=== PATIENT | male | born 1940 | race Caucasian/White ===

== ENCOUNTER → 2019-01-19 | Outpatient (CLI) | payer MEDICARE, OTHER ==
--- NOTE | 2019-01-19 15:19 | US ---
EXAMINATION TYPE: US venous doppler duplex LE LT DATE OF EXAM: 01/19/2019 3:00 PM COMPARISON: NONE CLINICAL HISTORY: I80.9 Phlebitis and thrombophlebitis. left ankle swelling SIDE PERFORMED: Left TECHNIQUE: The lower extremity deep venous system is examined utilizing real time linear array sonog sydnie with graded compression, doppler sonography and color-flow sonography. VESSELS IMAGED: External Iliac Vein (EIV) Common Femoral Vein Deep Femoral Vein Greater Saphenous Vein * Femoral Vein Popliteal Vein Small Saphenous Vein * Proximal Calf Veins (* superficial vessels) Left Leg: Negative for DVT Grayscale, color doppler, spectral doppler imaging performed of the deep veins of the left lower extr emity. There is normal flow, compressibility, vascular waveforms. IMPRESSION: No ultrasound evidence for acute DVT in the left lower extremity.
== END ==
LOC: RADUSWWP 14:31
PROVIDERS: ATTEND Orthopaedic Surgery
DX: M79.662 Pain in left lower leg (principal)

== ENCOUNTER 2024-05-23 13:35 | Inpatient (IN) | payer MEDICARE, OTHER ==
[2024-05-23 16:45] LABS: Glucose,Whole Blood 138 mg/dL (70-110)
[2024-05-23] MEDS ORDERED: ONDANSETRON 4 MG/2 ML VIAL IVP PRN (18:38)
[2024-05-23] MEDS ORDERED: NALOXONE 0.4 MG/ML 1 ML VIAL IV PRN (18:38)
[2024-05-23] MEDS ORDERED: ACETAMINOPHEN TAB 325 MG TAB PO PRN (18:38)
[2024-05-23] MEDS ORDERED: DEXTROSE 50% SYRINGE 50 ML IVP PRN ×2 (18:44)
[2024-05-23 20:36] LABS: Glucose,Whole Blood 160 mg/dL (70-110)
[2024-05-23] MEDS: PANTOPRAZOLE 40 MG/10 ML VIAL IVP SCH (20:40)
[2024-05-23] MEDS: hydrALAZINE HCL 50 MG TAB PO SCH (20:40)
[2024-05-23] MEDS: FUROSEMIDE 10 MG/ML 4 ML VIAL IV SCH (20:40)
[2024-05-23] MEDS: INSULIN ASPART (NovoLOG) 100 UNIT/ML VIAL SQ SCH (20:41)
[2024-05-24 06:03] LABS: Glucose,Whole Blood 101 mg/dL (70-110)
--- NOTE | 2024-05-24 09:30 | P.GSCN ---
History of Present Illness Consult date: 05/24/24 Reason for Consult: Chronic kidney disease History of present illness: 84-year-old gentleman with history of chronic kidney disease presented to [facility] secondary to anemia after getting transfused he was found to have worsening kidney function which he states he has been dealing with for several months and was instructed that he would need hemodialysis access prior to discharge. The vascular surgeon at the other hospital was unable to take the patient and therefore he was transferred to [facility]. He states he is doing well today and is complaining of fatigue which she states is normal. He denies any significant pain in his legs with ambulation or at rest. He does get pain in his lower back which is chronic. He denies any fevers, chills, chest pain or shortness of breath. Review of Systems All systems: negative (What is mentioned in HPI or past medical history of) Past Medical History Past Medical History: Coronary Artery Disease (CAD), Diabetes Mellitus, Hyperlipidemia, Hypertension, Osteoarthritis (OA), Renal Disease History of Any Multi-Drug Resistant Organisms: None Reported Past Surgical History: No Surgical Hx Reported Past Psychological History: No Psychological Hx Reported Smoking Status: Former smoker Past Alcohol Use History: None Reported Past Drug Use History: None Reported Medications and Allergies Allergies Allergy/AdvReac Type Severity Reaction Status Date / Time No Known Allergies Allergy Verified 05/23/24 19:20 Surgical - Exam Vital Signs Temp Pulse Resp BP Pulse Ox 97.2 F L 66 18 143/58 93 L 05/23/24 15:29 05/23/24 15:29 05/23/24 15:29 05/23/24 15:29 05/23/24 15:29 Patient Seen Date: 05/24/24 Patient Seen Time: 09:00 Slightly diminished DP and PT pulse. - General well developed, well nourished, no distress - Eyes PERRL, normal ocular movement - ENT normal pinna - Neck no masses, no bruits - Respiratory normal expansion, normal respiratory effort - Cardiovascular Rhythm: regular - Abdomen Abdomen: soft, non tender - Integumentary no rash, no growths - Neurologic normal coordination, normal sensation - Psychiatric oriented to time, oriented to person, oriented to place, speech is normal Results - Labs Abnormal Lab Results - Last 24 Hours (Table) 05/23/24 05/23/24 Range/Units 16:44 20:34 POC Glucose (mg/dL) 138 H 160 H (70-110) mg/dL Assessment and Plan Assessment: Chronic kidney disease Chronic anemia Coronary artery disease history of CABG Diabetes Plan: Awaiting labs from this morning. Reviewed labs from [facility] and potassium was 5.1 so unlikely need for emergent dialysis. Discussed with nephrology and will schedule tunneled hemodialysis catheter tomorrow unless labs have drastically changed and he requires emergent dialysis Thank you for the consultation
[2024-05-24 09:43] LABS: Basophils # (A) 0 X 10*3/uL (0.00-0.10); Basophils % (A) 0 %; Eosinophils # (A) 0.05 X 10*3/uL (0.04-0.35); Eosinophils % (A) 0.9 %; HCT 23.5 % (39.6-50.0); HGB 7.4 g/dL (13.0-17.0); Lymphocytes # (A) 0.44 X 10*3/uL (0.90-5.00); Lymphocytes % (A) 7.9 %; MCH 28.5 pg (27.0-32.0); MCHC 31.5 g/dL (32.0-37.0); MCV 90.4 FL (80.0-97.0); Mean Platelet Volume 9.8 FL (9.5-12.2); Monocytes # (A) 0.28 X 10*3/uL (0.20-1.00); NRBC Per 100 WBC 0 X 10*3/uL (0.00-0.01); Neutrophils # (A) 4.77 X 10*3/uL (1.80-7.70); Neutrophils % (A) 85.7 %; Platelet Count 247 X 10*3/uL (140-440); RDW 14.2 % (11.5-14.5); WBC 5.57 X 10*3/uL (4.50-10.00)
[2024-05-24 09:48] LABS: ALT 23 U/L (10-49); AST 33 U/L (14-35); Albumin/Globulin Ratio 0.81 Ratio (1.60-3.17); Alkaline Phosphatase 116 U/L (41-126); BUN/Creat Ratio 17.85 Ratio (12.00-20.00); Blood Urea Nitrogen 94.6 mg/dL (9.0-27.0); Calcium 8.3 mg/dL (8.7-10.3); Chloride 103 mmol/L (96-109); Globulin 3.7 g/dL (1.6-3.3); Glucose 93 mg/dL (70-110); Magnesium 1.8 mg/dL (1.5-2.4); Potassium 4.6 mmol/L (3.5-5.5); Sodium 141 mmol/L (135-145); Total Bilirubin 0.6 mg/dL (0.3-1.2); Total Protein 6.7 g/dL (6.2-8.2)
[2024-05-24 10:00] LABS: INR 1.21 sec (0.93-1.11); Prothrombin Time 12.9 sec (9.9-11.9)
--- NOTE | 2024-05-24 10:57 | P.PN ---
Subjective Progress Note Date: 05/24/24 This is an 84-year-old male patient with past medical history of coronary artery disease, chronic back pain, gout, hyperlipidemia, hypertension, hypothyroidism, neuropathy, osteoarthritis, spinal stenosis, diabetes mellitus type 2. Patient initially presented to [facility] was transferred to [facility] due to acute kidney injury with chronic kidney disease. Patient was seen by nephrology and a dialysis catheter needed to be obtained which apparently could not be done at [facility] and thus patient was transferred to [facility]. Patient denies having any chest pain, shortness of breath. He does have lower extremity edema. He is making urine. Lab work obtained at the outside facility revealed creatinine 4.2 and BUN 81. CAT scan of the chest, abdomen, pelvis was negative. Patient is s/p 1 unit of packed RBCs. Patient has been started on IV Lasix 40 mg every 12 hours. Home cardiac medications: Aspirin 81 mg daily, atorvastatin 80 mg at bedtime, Jardiance 10 mg daily, metoprolol tartrate 50 mg twice daily, Aldactone 25 mg daily, patient is also on levothyroxine 50 mcg daily Physical examination: Gen: This is an 84-year-old male in no acute distress VS: reviewed HEENT: Head is atraumatic, normocephalic. Pupils equal, round. Sclerae is anicteric. NECK: Supple. No JVD. LUNGS: Clear to auscultation. No wheezes or rhonchi. No intercostal retractions. HEART: Regular rate and rhythm. No murmur. ABDOMEN: Soft No tenderness. EXTREMITIES: Bilateral pedal edema. No calf tenderness. NEUROLOGICAL: Patient is awake, alert and oriented x3. Assessment: Acute kidney injury requiring HD Chronic kidney disease Coronary artery disease Hypertension Hyperlipidemia Diabetes mellitus type 2 Anemia of chronic disease, status posttransfusion 1 unit packed RBCs Plan: Continue patient's home cardiac medications: Aspirin 81 mg daily, atorvastatin 80 mg at bedtime, metoprolol tartrate 50 mg twice daily Aldactone on hold Patient has been started on IV Lasix 40 mg every 12 hours Obtain 2-D echocardiogram and Doppler study to assess cardiac structure and function Further recommendations to follow based upon clinical course Thank you kindly for this consultation. Nurse practitioner note has been reviewed, I agree with documented findings and plan of care. Patient was seen and examined. Objective - Vital Signs Vital signs: Vital Signs Temp 98.1 F 05/24/24 07:24 Pulse 83 05/24/24 07:24 Resp 17 05/24/24 07:24 BP 130/67 05/24/24 07:24 Pulse Ox 96 05/24/24 07:24 FiO2 Intake & Output 05/23/24 05/24/24 05/24/24 18:59 06:59 18:59 Weight 75.86 kg Other: Voiding Method Toilet # Voids 2 3 # Bowel Movements 1 - Labs CBC & Chem 7: 05/24/24 03:23 05/24/24 03:23 Labs: Abnormal Lab Results - Last 24 Hours (Table) 05/23/24 05/23/24 05/24/24 Range/Units 16:44 20:34 03:23 RBC 2.60 L (4.40-5.60) X 10*6/uL Hgb 7.4 L (13.0-17.0) g/dL Hct 23.5 L (39.6-50.0) % MCHC 31.5 L (32.0-37.0) g/dL Lymphocytes # 0.44 L (0.90-5.00) X 10*3/uL PT (9.9-11.9) sec INR (0.93-1.11) sec Anion Gap (4.00-12.00) mmol/L BUN (9.0-27.0) mg/dL Creatinine (0.6-1.5) mg/dL Est GFR (CKD-EPI) (>=60) POC Glucose (mg/dL) 138 H 160 H (70-110) mg/dL Calcium (8.7-10.3) mg/dL Albumin (3.8-4.9) g/dL Globulin (1.6-3.3) g/dL Albumin/Globulin Ratio (1.60-3.17) Ratio 05/24/24 05/24/24 Range/Units 03:23 03:23 RBC (4.40-5.60) X 10*6/uL Hgb (13.0-17.0) g/dL Hct (39.6-50.0) % MCHC (32.0-37.0) g/dL Lymphocytes # (0.90-5.00) X 10*3/uL PT 12.9 H (9.9-11.9) sec INR 1.21 H (0.93-1.11) sec Anion Gap 14.00 H (4.00-12.00) mmol/L BUN 94.6 H (9.0-27.0) mg/dL Creatinine 5.3 H (0.6-1.5) mg/dL Est GFR (CKD-EPI) 10 L (>=60) POC Glucose (mg/dL) (70-110) mg/dL Calcium 8.3 L (8.7-10.3) mg/dL Albumin 3.0 L (3.8-4.9) g/dL Globulin 3.7 H (1.6-3.3) g/dL Albumin/Globulin Ratio 0.81 L (1.60-3.17) Ratio
[2024-05-24] MEDS: METOPROLOL TARTRATE 50 MG TAB PO SCH (11:29)
[2024-05-24 11:30] LABS: Glucose,Whole Blood 175 mg/dL (70-110)
--- NOTE | 2024-05-24 12:08 | P.NPCON ---
History of Present Illness - Reason for Consult acute renal failure, chronic renal failure - History of Present Illness Reason for consultation: Acute kidney injury on chronic kidney disease History of present illness: Patient is a 84-year-old male seen in renal consultation for acute kidney injury on chronic kidney disease. Patient has chronic kidney disease stage IV with baseline creatinine in the range of 3-3.5 secondary to diabetic kidney disease. Patient was admitted at [facility] with severe anemia. Renal function had worsened with creatinine now above 5. Patient agreed to start hemodialysis and was transferred here due to no vascular surgery service at the other facility. He is scheduled for permacath placement tomorrow by vascular surgery. Creatinine today is 5.3. Patient denies chest pain or shortness of breath. He does make urine. He is on IV Lasix. Currently on room air. Denies vomiting or diarrhea. Vital signs are stable. General: No acute distress. HEENT: Head exam is unremarkable. LUNGS: No audible rhonchi or wheezes. HEART: Rate and Rhythm are regular. ABDOMEN: Nontender. EXTREMITITES: Trace edema. Past Medical History Past Medical History: Coronary Artery Disease (CAD), Diabetes Mellitus, Hyperlipidemia, Hypertension, Osteoarthritis (OA), Renal Disease History of Any Multi-Drug Resistant Organisms: None Reported Past Surgical History: No Surgical Hx Reported Past Psychological History: No Psychological Hx Reported Smoking Status: Former smoker Past Alcohol Use History: None Reported Past Drug Use History: None Reported Medications and Allergies Home Medications Medication Instructions Recorded Confirmed Type Ascorbic Acid [Vitamin C] 500 mg PO DAILY 05/24/24 05/24/24 History Aspirin EC [Ecotrin Low Dose] 81 mg PO DAILY 05/24/24 05/24/24 History Atorvastatin [Lipitor] 80 mg PO HS 05/24/24 05/24/24 History Azilsartan Med/Chlorthalidone 1 tab PO DAILY 05/24/24 05/24/24 History [Edarbyclor 40-25 mg Tablet] Clobetasol Propionate [Temovate 1 applic TOPICAL BID PRN 05/24/24 05/24/24 History 0.05% Cream] Doxazosin [Cardura] 4 mg PO BID 05/24/24 05/24/24 History Empagliflozin [Jardiance] 10 mg PO DAILY 05/24/24 05/24/24 History Ferrous Sulfate [Feosol] 325 mg PO DAILY 05/24/24 05/24/24 History Finasteride [Proscar] 5 mg PO DAILY 05/24/24 05/24/24 History Hydrocortisone Cream 1 applic TOPICAL BID PRN 05/24/24 05/24/24 History [Hydrocortisone 2.5% Cream] L. Acidophilus/L.bulgaricus 1 tab PO DAILY 05/24/24 05/24/24 History [Floranex Tablet] Levothyroxine Sodium [Synthroid] 50 mcg PO DAILY 05/24/24 05/24/24 History Magnesium Oxide [Mag-Ox] 400 mg PO DAILY 05/24/24 05/24/24 History Metoprolol Tartrate [Lopressor] 50 mg PO BID 05/24/24 05/24/24 History Mv-Min/Folic/K1/Lycopen/Lutein 1 tab PO DAILY 05/24/24 05/24/24 History [Centrum Silver Men Tablet] Nystatin 100,000Unit/gm Cream 1 applic TOPICAL BID PRN 05/24/24 05/24/24 History [Mycostatin Cream] Spironolactone [Aldactone] 25 mg PO DAILY 05/24/24 05/24/24 History Triamcinolone 0.1% Cream [Kenalog 1 applicatio TOPICAL BID PRN 05/24/24 05/24/24 History 0.1% Cream] hydrALAZINE HCL [Apresoline] 100 mg PO TID 05/24/24 05/24/24 History Allergies Allergy/AdvReac Type Severity Reaction Status Date / Time No Known Allergies Allergy Verified 05/24/24 09:32 Physical Exam Vitals: Vital Signs Temp Pulse Resp BP BP Pulse Ox 05/24/24 11:24 76 18 148/65 96 05/24/24 07:24 98.1 F 83 17 130/67 96 05/24/24 02:00 98.5 F 71 18 130/65 94 L 05/23/24 20:00 98.3 F 63 15 162/61 93 L 05/23/24 19:20 93 L 05/23/24 15:29 97.2 F L 66 18 143/58 93 L Intake and Output 05/23/24 05/24/24 05/24/24 22:59 06:59 14:59 Other: Voiding Method Toilet # Voids 2 3 # Bowel Movements 1 Weight 78.5 kg 75.86 kg Results - Lab Results Most recent lab results Calcium 8.3 mg/dL (8.7-10.3) L 05/24/24 03:23 Magnesium 1.8 mg/dL (1.5-2.4) 05/24/24 03:23 05/24/24 03:23 05/24/24 03:23 Assessment and Plan Plan: Assessment: 1. Acute kidney injury secondary to ATN secondary to severe anemia and cardiorenal syndrome versus progression of underlying chronic kidney disease. Creatinine 5.3 today. 2. 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 3. Anemia of chronic kidney disease with component of acute blood loss. 4. Hypertension with chronic kidney disease. Stable. 5. Chronic kidney disease mineral bone disease. 6. Hyperkalemia secondary to acute kidney injury. Improved. 7. Diabetes mellitus. Plan: Maintain IV Lasix. Add Aranesp. Plan for permacath placement tomorrow. Plan for first treatment of hemodialysis tomorrow. Patient and his agreeable with the plan. Thank you for the consultation. I will continue to follow the patient with you during his hospital stay
[2024-05-24] MEDS ORDERED: CLOBETASOL PROP 0.05% CR 15GM TOPICAL PRN (12:13)
--- NOTE | 2024-05-24 12:13 | P.HPIM ---
History of Present Illness 84-year-old male was transferred from [facility], [place] where he presented with shortness of breath acute hypoxemic respiratory failure requiring 4 L of oxygen found to have some pulm ashly, extensive pedal edema. Echocardiogram showed normal ejection fraction may be mild diastolic dysfunction. Patient was on IV Lasix 40 mg twice a day patient has chronic kidney disease with baseline creatinine of around 3-3.5 and has worsened after Lasix but diuresed well. Patient creatinine went up to 5.3 patient will require hemodialysis patient was transferred to [facility] for dialysis catheter placement by vascular surgery which will be placed tomorrow. Patient was also severely anemic received 1 unit of PRBC transfusion anemia secondary to anemia of chronic kidney disease patient ferritin levels are around 200 300. Patient is currently on IV Lasix. Patient is presently off oxygen. REVIEW OF SYSTEMS: All other systems are negative except those mentioned in the HPI PHYSICAL EXAMINATION: GENERAL: The patient is alert and oriented x3, not in any acute distress. Well developed, well nourished. HEENT: Pupils are round and equally reacting to light. EOMI. No scleral icterus. No conjunctival pallor. Normocephalic, atraumatic. No pharyngeal erythema. No thyromegaly. CARDIOVASCULAR: S1 and S2 present. No murmurs, rubs, or gallops. PULMONARY: Chest is clear to auscultation, no wheezing or crackles. ABDOMEN: Soft, nontender, nondistended, normoactive bowel sounds. No palpable organomegaly. MUSCULOSKELETAL: No joint swelling or deformity. EXTREMITIES: No cyanosis, clubbing, pedal edema significantly improved NEUROLOGICAL: Gross neurological examination did not reveal any focal deficits. SKIN: No rashes. Assessment and plan -Volume overload most probably secondary to renal dysfunction there is a possi bility of mild chronic diastolic function with acute exacerbation. Patient will be continued on IV Lasix will require hemodialysis -Acute renal failure on chronic kidney disease, possibility of cardiorenal syndrome progression of chronic kidney disease requiring hemodialysis dialysis catheter will be placed tomorrow -Anemia of chronic kidney disease without any acute blood loss no evidence of clinical GI bleed at this time patient is receiving on Arnesp. -Coronary artery disease -Type 2 diabetes mellitus -Hyperlipidemia -Hypertension -Benign prostatic hypertrophy DVT prophylaxis: Subcutaneous heparin Past Medical History Past Medical History: Coronary Artery Disease (CAD), Diabetes Mellitus, Hyperlipidemia, Hypertension, Osteoarthritis (OA), Renal Disease History of Any Multi-Drug Resistant Organisms: None Reported Past Surgical History: No Surgical Hx Reported Past Psychological History: No Psychological Hx Reported Smoking Status: Former smoker Past Alcohol Use History: None Reported Past Drug Use History: None Reported Medications and Allergies Home Medications Medication Instructions Recorded Confirmed Type Ascorbic Acid [Vitamin C] 500 mg PO DAILY 05/24/24 05/24/24 History Aspirin EC [Ecotrin Low Dose] 81 mg PO DAILY 05/24/24 05/24/24 History Atorvastatin [Lipitor] 80 mg PO HS 05/24/24 05/24/24 History Azilsartan Med/Chlorthalidone 1 tab PO DAILY 05/24/24 05/24/24 History [Edarbyclor 40-25 mg Tablet] Clobetasol Propionate [Temovate 1 applic TOPICAL BID PRN 05/24/24 05/24/24 History 0.05% Cream] Doxazosin [Cardura] 4 mg PO BID 05/24/24 05/24/24 History Empagliflozin [Jardiance] 10 mg PO DAILY 05/24/24 05/24/24 History Ferrous Sulfate [Feosol] 325 mg PO DAILY 05/24/24 05/24/24 History Finasteride [Proscar] 5 mg PO DAILY 05/24/24 05/24/24 History Hydrocortisone Cream 1 applic TOPICAL BID PRN 05/24/24 05/24/24 History [Hydrocortisone 2.5% Cream] L. Acidophilus/L.bulgaricus 1 tab PO DAILY 05/24/24 05/24/24 History [Floranex Tablet] Levothyroxine Sodium [Synthroid] 50 mcg PO DAILY 05/24/24 05/24/24 History Magnesium Oxide [Mag-Ox] 400 mg PO DAILY 05/24/24 05/24/24 History Metoprolol Tartrate [Lopressor] 50 mg PO BID 05/24/24 05/24/24 History Mv-Min/Folic/K1/Lycopen/Lutein 1 tab PO DAILY 05/24/24 05/24/24 History [Centrum Silver Men Tablet] Nystatin 100,000Unit/gm Cream 1 applic TOPICAL BID PRN 05/24/24 05/24/24 History [Mycostatin Cream] Spironolactone [Aldactone] 25 mg PO DAILY 05/24/24 05/24/24 History Triamcinolone 0.1% Cream [Kenalog 1 applicatio TOPICAL BID PRN 05/24/24 05/24/24 History 0.1% Cream] hydrALAZINE HCL [Apresoline] 100 mg PO TID 05/24/24 05/24/24 History Allergies Allergy/AdvReac Type Severity Reaction Status Date / Time No Known Allergies Allergy Verified 05/24/24 09:32 Physical Exam Vitals: Vital Signs Temp Pulse Resp BP BP Pulse Ox 05/24/24 11:24 76 18 148/65 96 05/24/24 07:24 98.1 F 83 17 130/67 96 05/24/24 02:00 98.5 F 71 18 130/65 94 L 05/23/24 20:00 98.3 F 63 15 162/61 93 L 05/23/24 19:20 93 L 05/23/24 15:29 97.2 F L 66 18 143/58 93 L Intake and Output 05/23/24 05/24/24 05/24/24 22:59 06:59 14:59 Other: Voiding Method Toilet # Voids 2 3 # Bowel Movements 1 Weight 78.5 kg 75.86 kg Results CBC & Chem 7: 05/24/24 03:23 05/24/24 03:23 Labs: Abnormal Lab Results - Last 24 Hours (Table) 05/23/24 05/23/24 05/24/24 Range/Units 16:44 20:34 03:23 RBC 2.60 L (4.40-5.60) X 10*6/uL Hgb 7.4 L (13.0-17.0) g/dL Hct 23.5 L (39.6-50.0) % MCHC 31.5 L (32.0-37.0) g/dL Lymphocytes # 0.44 L (0.90-5.00) X 10*3/uL PT (9.9-11.9) sec INR (0.93-1.11) sec Anion Gap (4.00-12.00) mmol/L BUN (9.0-27.0) mg/dL Creatinine (0.6-1.5) mg/dL Est GFR (CKD-EPI) (>=60) POC Glucose (mg/dL) 138 H 160 H (70-110) mg/dL Calcium (8.7-10.3) mg/dL Albumin (3.8-4.9) g/dL Globulin (1.6-3.3) g/dL Albumin/Globulin Ratio (1.60-3.17) Ratio 05/24/24 05/24/24 05/24/24 Range/Units 03:23 03:23 11:29 RBC (4.40-5.60) X 10*6/uL Hgb (13.0-17.0) g/dL Hct (39.6-50.0) % MCHC (32.0-37.0) g/dL Lymphocytes # (0.90-5.00) X 10*3/uL PT 12.9 H (9.9-11.9) sec INR 1.21 H (0.93-1.11) sec Anion Gap 14.00 H (4.00-12.00) mmol/L BUN 94.6 H (9.0-27.0) mg/dL Creatinine 5.3 H (0.6-1.5) mg/dL Est GFR (CKD-EPI) 10 L (>=60) POC Glucose (mg/dL) 175 H (70-110) mg/dL Calcium 8.3 L (8.7-10.3) mg/dL Albumin 3.0 L (3.8-4.9) g/dL Globulin 3.7 H (1.6-3.3) g/dL Albumin/Globulin Ratio 0.81 L (1.60-3.17) Ratio Thrombosis Risk Factor Assmnt - Choose All That Apply Each Factor Represents 1 point: Swollen legs (current) Each Risk Factor Represents 3 Points: Age 75 years or older Thrombosis Risk Factor Assessment Total Risk Factor Score: 4 Thrombosis Risk Factor Assessment Level: Moderate Risk
[2024-05-24] MEDS: FINASTERIDE 5 MG TAB PO SCH (13:20)
[2024-05-24] MEDS: DARBEPOETIN ALFA 40 MCG/0.4 ML SYRINGE SQ SCH (13:20)
[2024-05-24] MEDS: DOXAZOSIN 4 MG TAB PO SCH (13:20)
[2024-05-24 16:33] LABS: Glucose,Whole Blood 131 mg/dL (70-110)
[2024-05-24] MEDS: ATORVASTATIN 80 MG TAB PO SCH (21:32)
[2024-05-24 21:36] LABS: Glucose,Whole Blood 134 mg/dL (70-110)
[2024-05-25 05:54] LABS: Glucose,Whole Blood 113 mg/dL (70-110)
[2024-05-25] MEDS: LEVOTHYROXINE 50 MCG TAB PO SCH (06:24)
[2024-05-25] MEDS: ASPIRIN 81 MG PO SCH (08:32)
--- NOTE | 2024-05-25 11:33 | CA ---
Transthoracic Echo Report Name: Marcio Denise Age: 84 Gender: M : 1940 Exam Date: 05/25/2024 07:46 Exam Location: [facility] Ht (in): 65 Wt (lb): 167 Ordering Physician: Madelin Fox Attending/Referring Phys: [id number], Ruddy [employer]veyor Mechanic Katia Garcia RDCS Procedure CPT: Indications: LVF Cardiac Hx: Technical Quality: Good Contrast 1: Total Dose (mL): Contrast 2: Total Dose (mL): MEASUREMENTS (Male / Female) Normal Values 2D ECHO LV Diastolic Diameter PLAX 4.9 cm 4.2 - 5.9 / 3.9 - 5.3 cm LV Systolic Diameter PLAX 3.8 cm IVS Diastolic Thickness 1.1 cm 0.6 - 1.0 / 0.6 - 0.9 cm LVPW Diastolic Thickness 1.1 cm 0.6 - 1.0 / 0.6 - 0.9 cm LV Relative Wall Thickness 0.5 LVOT Diameter 2.3 cm LV Diastolic Volume MOD BP 165.3 cm??? 67 - 155 / 56 - 104 cm??? LV Systolic Volume MOD BP 68.9 cm??? 22 - 58 / 19 - 49 cm??? LV Ejection Fraction MOD BP 58.3 % >= 55 % LV Cardiac Index MOD BP 3379.3 cm???/min???m??? LV Diastolic Volume MOD 4C 151.9 cm??? LV Systolic Volume MOD 4C 69.4 cm??? LV Ejection Fraction MOD 4C 54.3 % LV Cardiac Index MOD 4C 2888.8 cm???/min???m??? LV Diastolic Length 4C 9.1 cm LV Systolic Length 4C 7.9 cm LV Diastolic Volume MOD 2C 168.4 cm??? LV Systolic Volume MOD 2C 67.9 cm??? LV Ejection Fraction MOD 2C 59.7 % LV Cardiac Index MOD 2C 3525.6 cm???/min???m??? LV Diastolic Length 2C 9.7 cm LV Systolic Length 2C 8.0 cm LA Volume 102.1 cm??? 18 - 58 / 22 - 52 cm??? LA Volume Index 54.2 cm???/m??? 16 - 28 cm???/m??? Ascending Aorta Diameter 3.4 cm DOPPLER AV Peak Velocity 236.3 cm/s AV Peak Gradient 22.3 mmHg AV Mean Velocity 160.5 cm/s AV Mean Gradient 11.5 mmHg AV Velocity Time Integral 57.1 cm LVOT Peak Velocity 89.8 cm/s LVOT Peak Gradient 3.2 mmHg LVOT Velocity Time Integral 21.9 cm LVOT Stroke Volume 93.3 cm??? LVOT Stroke Volume Index 50.9 ml/m??? LVOT Cardiac Index 3271.9 cm???/min???m??? AV Area Cont Eq vti 1.6 cm??? AV Area Cont Eq pk 1.6 cm??? MV Area PHT 3.5 cm??? Mitral E Point Velocity 86.3 cm/s Mitral A Point Velocity 62.8 cm/s Mitral E to A Ratio 1.4 MV Deceleration Time 214.6 ms PV Peak Velocity 128.2 cm/s PV Peak Gradient 6.6 mmHg FINDINGS Left Ventricle Left ventricular ejection fraction is estimated at 55-60 %. Mildly increased septal wall thickness. Mildly increased left ventricular diastolic volume. Mildly increased left ventricular systolic volume. No obvious regional wall motion abnormalities. Right Ventricle Mild right ventricular dilatation with mildly reduced function. Unable to estimate the right ventricular systolic pressure. Right Atrium Normal right atrial size. Left Atrium Severely increased left atrial volume. Mildly increased left atrial area. Mitral Valve Mitral valve thickened. No evidence for mitral valve prolapse. No mitral stenosis. Trace mitral regurgitation. Aortic Valve Trileaflet aortic valve. Diffuse thickening of the aortic valve cusps with reduced excursion. Mild aortic stenosis. Mild aortic regurgitation. Tricuspid Valve Structurally normal tricuspid valve. No tricuspid stenosis. Trace tricuspid regurgitation. Pulmonic Valve Structurally normal pulmonic valve. No pulmonic stenosis. Trace pulmonic regurgitation. Pericardium No pericardial effusion. Aorta Normal size aortic root and proximal ascending aorta. CONCLUSIONS Ventricular ejection fraction 55-60% Mildly increased left ventricular wall thickness Moderately dilated left atrium Trace mitral regurgitation Y mild aortic stenosis Trace tricuspid regurgitation Previewed by: Dr. Fredy Meza DO (Electronically Signed) Final Date: 25 May 2024 11:32
[2024-05-25 11:34] LABS: Glucose,Whole Blood 107 mg/dL (70-110)
--- NOTE | 2024-05-25 12:36 | P.PN ---
Subjective Patient is seen in follow-up for acute kidney injury on chronic kidney disease. Permacath to be placed today. First dialysis treatment today. Has been voiding. No active complaints. Vital signs are stable. General: No acute distress. HEENT: Head exam is unremarkable. LUNGS: No audible rhonchi or wheezes. HEART: Rate and Rhythm are regular. ABDOMEN: Nontender. EXTREMITITES: 1+ edema. Objective - Vital Signs Vital signs: Vital Signs Temp 98.2 F 05/25/24 07:02 Pulse 60 05/25/24 07:02 Resp 22 05/25/24 07:02 BP 129/73 05/25/24 07:02 Pulse Ox 95 05/25/24 07:02 FiO2 Intake & Output 05/24/24 05/25/24 05/25/24 18:59 06:59 18:59 Other: Voiding Method Toilet # Voids 3 4 - Labs CBC & Chem 7: 05/24/24 03:23 05/24/24 03:23 Labs: Abnormal Lab Results - Last 24 Hours (Table) 05/24/24 05/24/24 05/25/24 Range/Units 16:32 21:34 05:54 POC Glucose (mg/dL) 131 H 134 H 113 H (70-110) mg/dL Assessment and Plan Plan: Assessment: 1. Acute kidney injury secondary to ATN secondary to severe anemia and cardiorenal syndrome versus progression of underlying chronic kidney disease. Creatinine 5.3 yesterday. 2. 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 3. Anemia of chronic kidney disease with component of acute blood loss. On Shell nesp. 4. Hypertension with chronic kidney disease. Stable. 5. Chronic kidney disease mineral bone disease. 6. Hyperkalemia secondary to acute kidney injury. Improved. 7. Diabetes mellitus. Plan: Scheduled for permacath placement and first treatment of hemodialysis today. Secondary treatment tomorrow. Maintain IV Lasix. Check phosphorus level. Monitor for renal recovery outpatient. Case management to set up outpatient hemodialysis.
[2024-05-25] MEDS ORDERED: LIDOCAINE 1% INJ 10MG/ML (20 ML MDV) ONE (13:46)
[2024-05-25] MEDS ORDERED: HEPARIN SODIUM 1,000 UN/ML (10ML VL) ONE (13:46)
[2024-05-25] MEDS ORDERED: fentaNYL (PF) 50 MCG/ML 2 ML AMP ONE (13:46)
[2024-05-25] MEDS ORDERED: HEPARIN SODIUM,PORCINE 30 ML 30 ML ONE (14:04)
--- NOTE | 2024-05-25 14:04 | P.PN ---
Subjective Progress Note Date: 05/25/24 84-year-old male was transferred from [facility] where he presented with shortness of breath acute hypoxemic respiratory failure requiring 4 L of oxygen found to have some pulm ashly, extensive pedal edema. Echocardiogram showed normal ejection fraction may be mild diastolic dysfunction. Patient was on IV Lasix 40 mg twice a day patient has chronic kidney disease with baseline creatinine of around 3-3.5 and has worsened after Lasix but diuresed well. Patient creatinine went up to 5.3 patient will require hemodialysis patient was transferred to [facility] for dialysis catheter placement by vascular surgery which will be placed tomorrow. Patient was also severely anemic received 1 unit of PRBC transfusion anemia secondary to anemia of chronic kidney disease patient ferritin levels are around 200 300. Patient is currently on IV Lasix. Patient is presently off oxygen. 05/25/2024 Admitted today in follow-up on the medical floor. Patient is scheduled to undergo a hemodialysis access today with vascular surgery. Patient will undergo hemodialysis afterwards, scheduled to undergo hemodialysis again tomorrow. Patient is continued on IV Lasix. Nephrology is following closely. Ejection fraction of 55 to 60% with trace mitral regurgitation, trace tricuspid regurgitation. Review of Systems Constitutional: Denied any fatigue denied any fever. Cardio vascular: denied any chest pain, palpitations Gastrointestinal: denied any nausea, vomiting, diarrhea Pulmonary: Denied any shortness of breath cough Neurologic denied any new focal deficits All inpatient medications were reviewed and appropriate changes in these medications as dictated in the interval history and assessment and plan. PHYSICAL EXAMINATION: GENERAL: The patient is alert and oriented x3, not in any acute distress. Well developed, well nourished. HEENT: Pupils are round and equally reacting to light. EOMI. No scleral icterus. No conjunctival pallor. Normocephalic, atraumatic. No pharyngeal erythema. No thyromegaly. CARDIOVASCULAR: S1 and S2 present. No murmurs, rubs, or gallops. PULMONARY: Chest is clear to auscultation, no wheezing or crackles. ABDOMEN: Soft, nontender, nondistended, normoactive bowel sounds. No palpable organomegaly. MUSCULOSKELETAL: No joint swelling or deformity. EXTREMITIES: No cyanosis, clubbing, pedal edema significantly improved NEUROLOGICAL: Gross neurological examination did not reveal any focal deficits. SKIN: No rashes. Assessment and plan -Volume overload most probably secondary to renal dysfunction there is a possibility of mild chronic diastolic function with acute exacerbation. Patient will be continued on IV Lasix will require hemodialysis -Acute renal failure on chronic kidney disease, possibility of cardiorenal syndrome progression of chronic kidney disease requiring hemodialysis dialysis catheter will be placed today -Anemia of chronic kidney disease without any acute blood loss no evidence of clinical GI bleed at this time patient is receiving on Arnesp. -Coronary artery disease -Type 2 diabetes mellitus -Hyperlipidemia -Hypertension -Benign prostatic hypertrophy DVT prophylaxis: Subcutaneous heparin The impression and plan of care has been dictated by Zuleima Toro, Nurse Practitioner as directed. Dr. Shoshana MD I have performed a history and physical examination and medical decision making of this patient, discussed the same with the dictator, and agree with the dictators assessment and plan as written, documented as a scribe. Based on total visit time, I have performed more than 50% of this visit. Objective - Vital Signs Vital signs: Vital Signs Temp 98.2 F 05/25/24 07:02 Pulse 60 05/25/24 07:02 Resp 22 05/25/24 07:02 BP 129/73 05/25/24 07:02 Pulse Ox 95 05/25/24 07:02 FiO2 Intake & Output 05/24/24 05/25/24 05/25/24 18:59 06:59 18:59 Other: Voiding Method Toilet # Voids 3 4 - Labs CBC & Chem 7: 05/24/24 03:23 05/24/24 03:23 Labs: Abnormal Lab Results - Last 24 Hours (Table) 05/24/24 05/24/24 05/25/24 Range/Units 16:32 21:34 05:54 POC Glucose (mg/dL) 131 H 134 H 113 H (70-110) mg/dL Assessment and Plan Time with Patient: Less than 30
[2024-05-25] MEDS: fentaNYL (PF) 50 MCG/1 ML VIAL IVP ONE (14:33)
[2024-05-25] MEDS: LIDOCAINE 1% INJ 10MG/ML (20 ML MDV) SQ ONE (14:33)
[2024-05-25] MEDS: MIDAZOLAM 2 MG/2 ML VIAL IVP ONE (14:33)
[2024-05-25] MEDS: HEPARIN SODIUM 1,000 UN/ML (10ML VL) MISCELLANE ONE (14:48)
[2024-05-25] MEDS: HEPARIN SODIUM,PORCINE (1 ML) 2,500 UNIT in SODIUM CHLORIDE 0.9% 250 ML IRRIGATION ONE (14:56)
[2024-05-25] MEDS: SODIUM CHLORIDE 0.9% 1,000 ML IV ONE (14:56)
[2024-05-25] MEDS: HEPARIN SODIUM,PORCINE 10,000 UNIT in SODIUM CHLORIDE 0.9% 1,000 ML IRRIGATION ONE (14:56)
--- NOTE | 2024-05-25 15:46 | P.OP ---
Description of Procedure: Date: 05/25/24 Preoperative diagnosis: End-stage renal failure Postoperative diagnosis: Same Procedure: Placement of tunneled hemodialysis catheter via right internal jugular vein ultrasound and fluoroscopic-guided access Surgeon: Omar Allen D.O. Anesthesia: Local with sedation Estimated blood loss: Minimal Complications: None Condition: Stable Operative narrative: After written and informed consent was obtained and all risks, benefits and competitions were described the patient was brought to the Relationship Management Lead and laid in a supine position. The area of the right neck was prepped and draped in the usual sterile fashion. Timeout was performed in normal fashion and antibiotics were administered prior to access. Utilizing ultrasound the right internal jugular vein was visualized and shown to be patent without any thrombus. Under ultrasound guidance the vein was then cannulated with dark nonpulsatile blood flow visualized. Guidewire was placed under direct visualization of fluoroscopy into the superior vena cava. Attention was then placed to the chest wall. A small incision was created on the lateral aspect of the chest wall as well as the access site at the neck. A 19 centimeter curved Palidrome hemodialysis catheter was then tunneled from the chest wall to the neck. Serial dilation was then performed and breakaway sheath was placed into the internal jugular vein under direct visualization of fluoroscopy. The catheter was then placed within the break away sheath the sheath was removed. The ports were assessed for patency and antonio and flushed easily and then were hep-locked. The catheter was then sutured in place, cleansed and dressings were placed. The patient tolerated procedure well.
--- NOTE | 2024-05-25 16:05 | P.PN ---
Subjective This is an 84-year-old male patient with past medical history of coronary artery disease, chronic back pain, gout, hyperlipidemia, hypertension, hypothyroidism, neuropathy, osteoarthritis, spinal stenosis, diabetes mellitus type 2. Patient initially presented to [facility] was transferred to [facility] due to acute kidney injury with chronic kidney disease. Patient was seen by nephrology and a dialysis catheter needed to be obtained which apparently could not be done at [facility] and thus patient was transferred to [facility]. Patient denies having any chest pain, shortness of breath. He does have lower extremity edema. He is making urine. Lab work obtained at the outside facility revealed creatinine 4.2 and BUN 81. CAT scan of the chest, abdomen, pelvis was negative. Patient is s/p 1 unit of packed RBCs. Patient has been started on IV Lasix 40 mg every 12 hours. Home cardiac medications: Aspirin 81 mg daily, atorvastatin 80 mg at bedtime, Jardiance 10 mg daily, metoprolol tartrate 50 mg twice daily, Aldactone 25 mg daily, patient is also on levothyroxine 50 mcg daily 05/25 patient seen and examined. Patient denies any chest pain or pressure. Dialysis catheter is placed for dialysis likely later today. Physical examination: Gen: This is an 84-year-old male in no acute distress VS: reviewed HEENT: Head is atraumatic, normocephalic. Pupils equal, round. Sclerae is a nicteric. NECK: Supple. No JVD. LUNGS: Clear to auscultation. No wheezes or rhonchi. No intercostal retractions. HEART: Regular rate and rhythm. No murmur. ABDOMEN: Soft No tenderness. EXTREMITIES: Bilateral pedal edema. No calf tenderness. NEUROLOGICAL: Patient is awake, alert and oriented x3. Assessment: Acute kidney injury requiring HD Chronic kidney disease Coronary artery disease Hypertension Hyperlipidemia Diabetes mellitus type 2 Anemia of chronic disease, status posttransfusion 1 unit packed RBCs Plan: Continue patient's home cardiac medications: Aspirin 81 mg daily, atorvastatin 80 mg at bedtime, metoprolol tartrate 50 mg twice daily Aldactone on hold echocardiogram shows preserved EF without significant valvular disease, mild aortic stenosis Monitor response of hemodialysis Further recommendations to follow. Objective - Vital Signs Vital signs: Vital Signs Temp 97.4 F L 05/25/24 15:27 Pulse 60 05/25/24 15:27 Resp 16 05/25/24 15:27 BP 152/65 05/25/24 15:27 Pulse Ox 94 L 05/25/24 15:27 FiO2 Intake & Output 05/24/24 05/25/24 05/25/24 18:59 06:59 18:59 Intake Total 50 Balance 50 Intake: IV 50 Other: Voiding Method Toilet # Voids 3 4 - Labs CBC & Chem 7: 05/24/24 03:23 05/24/24 03:23 Labs: Abnormal Lab Results - Last 24 Hours (Table) 05/24/24 05/24/24 05/25/24 Range/Units 16:32 21:34 05:54 POC Glucose (mg/dL) 131 H 134 H 113 H (70-110) mg/dL Phosphorus (2.4-5.1) mg/dL 05/25/24 Range/Units 10:21 POC Glucose (mg/dL) (70-110) mg/dL Phosphorus 5.2 H (2.4-5.1) mg/dL
[2024-05-25 16:42] LABS: Glucose,Whole Blood 111 mg/dL (70-110)
--- NOTE | 2024-05-25 17:38 | XR ---
EXAMINATION TYPE: XR chest 1V DATE OF EXAM: 05/25/2024 COMPARISON: NONE HISTORY: 84-year-old male tunneled catheter placement TECHNIQUE: Single frontal view of the chest is obtained. FINDINGS: Median sternotomy wires and post-CABG clips. Right-sided double-lumen hemodialysis cathete r with tips at the cavoatrial junction. Heart mildly enlarged. Interstitial prominence. No jarek cons olidation or pleural effusion. IMPRESSION: Correlate for pulmonary vascular congestion/early fluid overload state. No jarek pulmona ry edema.
[2024-05-25 20:20] LABS: Hepatitis B Surface Antigen Nonreactive (Nonreactive)
[2024-05-25 20:40] LABS: Hepatitis B Surface AB- Quant 3.5 mIU/mL
[2024-05-25 20:53] LABS: Glucose,Whole Blood 188 mg/dL (70-110)
--- NOTE | 2024-05-25 21:34 | IR ---
EXAMINATION TYPE: IR cvc insert central tunneled DATE OF EXAM: 05/25/2024 FLUOROSCOPY Dialyisis, 0.8min / 0.557 Gycm2 DAP, Rt IJ 14.5F x 19cm Dialysis cath. 13 images provided.
[2024-05-26 06:03] LABS: Glucose,Whole Blood 96 mg/dL (70-110)
[2024-05-26 11:20] LABS: Glucose,Whole Blood 210 mg/dL (70-110)
--- NOTE | 2024-05-26 11:44 | P.PN ---
Subjective Progress Note Date: 05/26/24 Principal diagnosis: End-stage renal disease requiring hemodialysis Patient seen and examined today as a follow-up. He is sitting up at the bedside. He is status post right IJ tunneled catheter placement. He received hemodialysis without any complications. No bleeding noted. Patient is without any complaints. Chest x-ray without pneumothorax. Objective - Vital Signs Vital signs: Vital Signs Temp 98.8 F 05/26/24 00:55 Pulse 61 05/26/24 00:55 Resp 18 05/26/24 00:55 BP 121/63 05/26/24 00:55 Pulse Ox 96 05/26/24 00:55 FiO2 Intake & Output 05/25/24 05/26/24 05/26/24 18:59 06:59 18:59 Intake Total 230 400 Output Total 900 Balance 230 -500 Intake: IV 50 Oral 180 Hemodialysis 400 Output: Hemodialysis 900 Other: # Voids 1 - Exam General appearance: The patient is alert, oriented, appears in no acute distress. HET: Head is normocephalic and atraumatic. Pupils are equal and reactive. Neck: Supple. Heart: Regular. Lungs: Equal expansion, normal respiratory effort. Chest: Right IJ tunneled catheter upper chest without any hematoma or bleeding. Abdomen: Soft, nondistended. Extremities: Normal skin color and turgor. Neurological: Alert and oriented. - Labs CBC & Chem 7: 05/24/24 03:23 05/24/24 03:23 Labs: Abnormal Lab Results - Last 24 Hours (Table) 05/25/24 05/25/24 05/25/24 Range/Units 10:21 16:27 20:51 POC Glucose (mg/dL) 111 H 188 H (70-110) mg/dL Phosphorus 5.2 H (2.4-5.1) mg/dL Assessment and Plan Assessment: 1. End-stage renal disease requiring hemodialysis 2. Status postplacement of tunneled hemodialysis catheter Plan: 1. Patient is status post tunneled hemodialysis catheter placement 2. Continue with hemodialysis per recommendations from nephrology 3. Patient to follow-up with vascular surgery as needed Thank you for this consultation, we will sign off at this time. The impression and plan of care has been dictated as directed. I performed a history and examination of this patient, discussed the same with the dictator. I agree with the dictator's note ,documented as a scribe. Any additional findings or plans will be noted.
[2024-05-26 12:08] LABS: Magnesium 1.6 mg/dL (1.5-2.4)
[2024-05-26 12:11] LABS: BUN/Creat Ratio 15.53 Ratio (12.00-20.00); Blood Urea Nitrogen 76.1 mg/dL (9.0-27.0); Calcium 8.6 mg/dL (8.7-10.3); Carbon Dioxide 22.8 mmol/L (21.6-31.8); Chloride 100 mmol/L (96-109); Glucose 87 mg/dL (70-110); Potassium 4.2 mmol/L (3.5-5.5); Sodium 141 mmol/L (135-145)
--- NOTE | 2024-05-26 13:27 | P.PN ---
Subjective Patient is seen in follow-up for acute kidney injury on chronic kidney disease. Started on hemodialysis May 25, 2024. Tolerating dialysis well. Has been voiding. No active complaints. Vital signs are stable. General: No acute distress. HEENT: Head exam is unremarkable. LUNGS: No audible rhonchi or wheezes. HEART: Rate and Rhythm are regular. ABDOMEN: Nontender. EXTREMITITES: 1+ edema. Objective - Vital Signs Vital signs: Vital Signs Temp 97.9 F 05/26/24 07:00 Pulse 95 05/26/24 07:00 Resp 20 05/26/24 07:00 BP 111/58 05/26/24 07:00 Pulse Ox 94 L 05/26/24 07:00 FiO2 Intake & Output 05/25/24 05/26/24 05/26/24 18:59 06:59 18:59 Intake Total 230 400 180 Output Total 900 Balance 230 -500 180 Intake: IV 50 Oral 180 180 Hemodialysis 400 Output: Hemodialysis 900 Other: # Voids 1 - Labs CBC & Chem 7: 05/24/24 03:23 05/26/24 05:14 Labs: Abnormal Lab Results - Last 24 Hours (Table) 05/25/24 05/25/24 05/25/24 Range/Units 10:21 16:27 20:51 Anion Gap (4.00-12.00) mmol/L BUN (9.0-27.0) mg/dL Creatinine (0.6-1.5) mg/dL Est GFR (CKD-EPI) (>=60) POC Glucose (mg/dL) 111 H 188 H (70-110) mg/dL Calcium (8.7-10.3) mg/dL Phosphorus 5.2 H (2.4-5.1) mg/dL 05/26/24 05/26/24 Range/Units 05:14 11:11 Anion Gap 18.20 H (4.00-12.00) mmol/L BUN 76.1 H (9.0-27.0) mg/dL Creatinine 4.9 H (0.6-1.5) mg/dL Est GFR (CKD-EPI) 11 L (>=60) POC Glucose (mg/dL) 210 H (70-110) mg/dL Calcium 8.6 L (8.7-10.3) mg/dL Phosphorus (2.4-5.1) mg/dL Assessment and Plan Plan: Assessment: 1. Acute kidney injury secondary to ATN secondary to severe anemia and cardiorenal syndrome versus progression of underlying chronic kidney disease. Started on hemodialysis May 25, 2024 via permacath. 2. 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 3. Anemia of chronic kidney disease with component of acute blood loss. On Aranesp. 4. Hypertension with chronic kidney disease. Stable. 5. Chronic kidney disease mineral bone disease. Phosphorus level 5.2 dated May 25, 2024. 6. Hyperkalemia secondary to acute kidney injury. Improved. 7. Diabetes mellitus. Plan: Currently seen while undergoing hemodialysis. Plan for another treatment tomorrow. He will be maintained on Saturday schedule outpatient. Stop IV Lasix. Add torsemide 40 mg once daily. Monitor for renal recovery outpatient. Case management to set up outpatient hemodialysis. Stable for discharge from nephrology standpoint.
--- NOTE | 2024-05-26 15:07 | P.PN ---
Subjective This is an 84-year-old male patient with past medical history of coronary artery disease, chronic back pain, gout, hyperlipidemia, hypertension, hypothyroidism, neuropathy, osteoarthritis, spinal stenosis, diabetes mellitus type 2. Patient initially presented to [facility] was transferred to [facility] due to acute kidney injury with chronic kidney disease. Patient was seen by nephrology and a dialysis catheter needed to be obtained which apparently could not be done at [facility] and thus patient was transferred to [facility]. Patient denies having any chest pain, shortness of breath. He does have lower extremity edema. He is making urine. Lab work obtained at the outside facility revealed creatinine 4.2 and BUN 81. CAT scan of the chest, abdomen, pelvis was negative. Patient is s/p 1 unit of packed RBCs. Patient has been started on IV Lasix 40 mg every 12 hours. Home cardiac medications: Aspirin 81 mg daily, atorvastatin 80 mg at bedtime, Jardiance 10 mg daily, metoprolol tartrate 50 mg twice daily, Aldactone 25 mg daily, patient is also on levothyroxine 50 mcg daily 05/25 patient seen and examined. Patient denies any chest pain or pressure. Dialysis catheter is placed for dialysis likely later today. 05/26 patient seen and examined. Patient states he is feeling okay and just tired. He did have dialysis catheter placed and underwent dialysis this morning. Blood pressure lower in the 80s over 40s. We therefore will decrease his BP meds Physical examination: Gen: This is an 84-year-old male in no acute distress VS: reviewed HEENT: Head is atraumatic, normocephalic. Pupils equal, round. Sclerae is anicteric. NECK: Supple. No JVD. LUNGS: Clear to auscultation. No wheezes or rhonchi. No intercostal retractions. HEART: Regular rate and rhythm. No murmur. ABDOMEN: Soft No tenderness. EXTREMITIES: Bilateral pedal edema. No calf tenderness. NEUROLOGICAL: Patient is awake, alert and oriented x3. Assessment: Acute kidney injury requiring HD Chronic kidney disease Coronary artery disease Hypertension Hyperlipidemia Diabetes mellitus type 2 Anemia of chronic disease, status posttransfusion 1 unit packed RBCs Plan: echocardiogram shows preserved EF without significant valvular disease, mild aortic stenosis Monitor response of hemodialysis blood pressure lower after dialysis and we will decrease his hydralazine to 50 mg tid and monitor response Objective - Vital Signs Vital signs: Vital Signs Temp 97.4 F L 05/26/24 13:20 Pulse 57 L 05/26/24 13:20 Resp 20 05/26/24 13:20 BP 88/44 05/26/24 13:20 Pulse Ox 92 L 05/26/24 13:20 FiO2 Intake & Output 05/25/24 05/26/24 05/26/24 18:59 06:59 18:59 Intake Total 230 400 360 Output Total 900 Balance 230 -500 360 Intake: IV 50 Oral 180 360 Hemodialysis 400 Output: Hemodialysis 900 Other: # Voids 1 - Labs CBC & Chem 7: 05/24/24 03:23 05/26/24 05:14 Labs: Abnormal Lab Results - Last 24 Hours (Table) 05/25/24 05/25/24 05/25/24 Range/Units 10:21 16:27 20:51 Anion Gap (4.00-12.00) mmol/L BUN (9.0-27.0) mg/dL Creatinine (0.6-1.5) mg/dL Est GFR (CKD-EPI) (>=60) POC Glucose (mg/dL) 111 H 188 H (70-110) mg/dL Calcium (8.7-10.3) mg/dL Phosphorus 5.2 H (2.4-5.1) mg/dL 05/26/24 05/26/24 Range/Units 05:14 11:11 Anion Gap 18.20 H (4.00-12.00) mmol/L BUN 76.1 H (9.0-27.0) mg/dL Creatinine 4.9 H (0.6-1.5) mg/dL Est GFR (CKD-EPI) 11 L (>=60) POC Glucose (mg/dL) 210 H (70-110) mg/dL Calcium 8.6 L (8.7-10.3) mg/dL Phosphorus (2.4-5.1) mg/dL
[2024-05-26 17:09] LABS: Glucose,Whole Blood 174 mg/dL (70-110)
[2024-05-26] MEDS: hydrALAZINE HCL 50 MG TAB PO SCH (17:14)
[2024-05-26 21:04] LABS: Glucose,Whole Blood 162 mg/dL (70-110)
[2024-05-26] MEDS ORDERED: Magnesium Replacement Protocol 1 EACH MISC MISCELLANE PRN (21:07)
--- NOTE | 2024-05-26 21:10 | P.PN ---
Subjective Progress Note Date: 05/26/24 84-year-old male was transferred from [facility] where he presented with shortness of breath acute hypoxemic respiratory failure requiring 4 L of oxygen found to have some pulm ashly, extensive pedal edema. Echocardiogram showed normal ejection fraction may be mild diastolic dysfunction. Patient was on IV Lasix 40 mg twice a day patient has chronic kidney disease with baseline creatinine of around 3-3.5 and has worsened after Lasix but diuresed well. Patient creatinine went up to 5.3 patient will require hemodialysis patient was transferred to [facility] for dialysis catheter placement by vascular surgery which will be placed tomorrow. Patient was also severely anemic received 1 unit of PRBC transfusion anemia secondary to anemia of chronic kidney disease patient ferritin levels are around 200 300. Patient is currently on IV Lasix. Patient is presently off oxygen. 05/25/2024 Admitted today in follow-up on the medical floor. Patient is scheduled to undergo a hemodialysis access today with vascular surgery. Patient will undergo hemodialysis afterwards, scheduled to undergo hemodialysis again tomorrow. Patient is continued on IV Lasix. Nephrology is following closely. Ejection fraction of 55 to 60% with trace mitral regurgitation, trace tricuspid regurgitation. 05/26/2024 Patient is evaluated today in follow up. Patient is undergoing his second session of hemodialysis today. He is less short of breath. He has a right chest wall permacath in place. Creatinine today 4.9. Social work is arranging a chair time for the patient to continue hemodialysis on discharge. Review of Systems Constitutional: Denied any fatigue denied any fever. Cardio vascular: denied any chest pain, palpitations Gastrointestinal: denied any nausea, vomiting, diarrhea Pulmonary: Denied any shortness of breath cough Neurologic denied any new focal deficits All inpatient medications were reviewed and appropriate changes in these medications as dictated in the interval history and assessment and plan. PHYSICAL EXAMINATION: GENERAL: The patient is alert and oriented x3, not in any acute distress. Well developed, well nourished. HEENT: Pupils are round and equally reacting to light. EOMI. No scleral icterus. No conjunctival pallor. Normocephalic, atraumatic. No pharyngeal erythema. No thyromegaly. CARDIOVASCULAR: S1 and S2 present. No murmurs, rubs, or gallops. PULMONARY: Chest is clear to auscultation, no wheezing or crackles. ABDOMEN: Soft, nontender, nondistended, normoactive bowel sounds. No palpable organomegaly. MUSCULOSKELETAL: No joint swelling or deformity. EXTREMITIES: No cyanosis, clubbing, pedal edema significantly improved NEUROLOGICAL: Gross neurological examination did not reveal any focal deficits. SKIN: No rashes. Assessment and plan -Volume overload most probably secondary to renal dysfunction there is a possibility of mild chronic diastolic function with acute exacerbation. IV lasix has been changed to oral torsemide patient has been started on renal replacement therapy and undergoing second hemodialysis session today. Social work arranging chair time. -Acute renal failure on chronic kidney disease, possibility of cardiorenal synd juan carlos progression of chronic kidney disease requiring hemodialysis -Anemia of chronic kidney disease without any acute blood loss no evidence of clinical GI bleed at this time patient is receiving on Arnesp. -Coronary artery disease -Type 2 diabetes mellitus -Hyperlipidemia -Hypertension -Benign prostatic hypertrophy DVT prophylaxis: Subcutaneous heparin The impression and plan of care has been dictated by Zuleima Toro, Nurse Practitioner as directed. Dr. Shoshana MD I have performed a history and physical examination and medical decision making of this patient, discussed the same with the dictator, and agree with the dictators assessment and plan as written, documented as a scribe. Based on total visit time, I have performed more than 50% of this visit. Objective - Vital Signs Vital signs: Vital Signs Temp 97.4 F L 05/26/24 17:58 Pulse 50 L 05/26/24 17:58 Resp 17 05/26/24 17:58 BP 147/62 05/26/24 17:58 Pulse Ox 92 L 05/26/24 13:20 FiO2 Intake & Output 05/26/24 05/26/24 05/27/24 06:59 18:59 06:59 Intake Total 400 760 Output Total 900 1400 Balance -500 -640 Intake: Oral 360 Hemodialysis 400 400 Output: Hemodialysis 900 1400 Other: # Voids 0 - Labs CBC & Chem 7: 05/24/24 03:23 05/26/24 05:14 Labs: Abnormal Lab Results - Last 24 Hours (Table) 05/26/24 05/26/24 05/26/24 Range/Units 05:14 11:11 17:07 Anion Gap 18.20 H (4.00-12.00) mmol/L BUN 76.1 H (9.0-27.0) mg/dL Creatinine 4.9 H (0.6-1.5) mg/dL Est GFR (CKD-EPI) 11 L (>=60) POC Glucose (mg/dL) 210 H 174 H (70-110) mg/dL Calcium 8.6 L (8.7-10.3) mg/dL 05/26/24 Range/Units 20:59 Anion Gap (4.00-12.00) mmol/L BUN (9.0-27.0) mg/dL Creatinine (0.6-1.5) mg/dL Est GFR (CKD-EPI) (>=60) POC Glucose (mg/dL) 162 H (70-110) mg/dL Calcium (8.7-10.3) mg/dL Assessment and Plan Time with Patient: Less than 30
[2024-05-26] MEDS: MAGNESIUM SULFATE-D5W PMX 1 GM in DEXTROSE/WATER 1 100ML.BAG IVPB SCH (21:33)
[2024-05-27 06:13] LABS: Glucose,Whole Blood 114 mg/dL (70-110)
[2024-05-27] MEDS: TORSEMIDE 20 MG TAB PO SCH (08:10)
[2024-05-27] MEDS: HEPARIN SODIUM,PORCINE 5,000 UNIT/ML 1 ML VIAL SQ SCH (08:11)
--- NOTE | 2024-05-27 11:32 | P.PN ---
Subjective Patient is seen in follow-up for acute kidney injury on chronic kidney disease. Started on hemodialysis May 25, 2024. No active complaints. Has been voiding. No active complaints. Vital signs are stable. General: No acute distress. HEENT: Head exam is unremarkable. LUNGS: No audible rhonchi or wheezes. HEART: Rate and Rhythm are regular. ABDOMEN: Nontender. EXTREMITITES: 1+ edema. Objective - Vital Signs Vital signs: Vital Signs Temp 97.9 F 05/27/24 07:04 Pulse 52 L 05/27/24 07:04 Resp 16 05/27/24 07:04 BP 129/56 05/27/24 07:04 Pulse Ox 96 05/27/24 07:04 FiO2 Intake & Output 05/26/24 05/27/24 05/27/24 18:59 06:59 18:59 Intake Total 760 Output Total 1400 Balance -640 Intake: Oral 360 Hemodialysis 400 Output: Hemodialysis 1400 Other: # Voids 0 1 - Labs CBC & Chem 7: 05/24/24 03:23 05/26/24 05:14 Labs: Abnormal Lab Results - Last 24 Hours (Table) 05/26/24 05/26/24 05/26/24 Range/Units 05:14 17:07 20:59 Anion Gap 18.20 H (4.00-12.00) mmol/L BUN 76.1 H (9.0-27.0) mg/dL Creatinine 4.9 H (0.6-1.5) mg/dL Est GFR (CKD-EPI) 11 L (>=60) POC Glucose (mg/dL) 174 H 162 H (70-110) mg/dL Calcium 8.6 L (8.7-10.3) mg/dL 05/27/24 Range/Units 06:12 Anion Gap (4.00-12.00) mmol/L BUN (9.0-27.0) mg/dL Creatinine (0.6-1.5) mg/dL Est GFR (CKD-EPI) (>=60) POC Glucose (mg/dL) 114 H (70-110) mg/dL Calcium (8.7-10.3) mg/dL Assessment and Plan Plan: Assessment: 1. Acute kidney injury secondary to ATN secondary to severe anemia and cardiorenal syndrome versus progression of underlying chronic kidney disease. Started on hemodialysis May 25, 2024 via permacath. 2. 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 3. Anemia of chronic kidney disease with component of acute blood loss. On Aranesp. 4. Hypertension with chronic kidney disease. Stable. 5. Chronic kidney disease mineral bone disease. Phosphorus level 5.2 dated May 25, 2024. 6. Hyperkalemia secondary to acute kidney injury. Improved. 7. Diabetes mellitus. Plan: Hemodialysis today. He will be maintained on Saturday schedule outpatient. Maintain torsemide 40 mg once daily. Monitor for renal recovery outpatient. Case management to set up outpatient hemodialysis. Stable for discharge from nephrology standpoint.
[2024-05-27 11:33] LABS: Glucose,Whole Blood 102 mg/dL (70-110)
--- NOTE | 2024-05-27 12:41 | P.PN ---
Subjective HISTORY OF PRESENT ILLNESS: This is an 84-year-old male patient with past medical history of coronary artery disease, chronic back pain, gout, hyperlipidemia, hypertension, hypothyroidism, neuropathy, osteoarthritis, spinal stenosis, diabetes mellitus type 2. Patient initially presented to [facility] was transferred to [facility] due to acute kidney injury with chronic kidney disease. Patient was seen by nephrology and a dialysis catheter needed to be obtained which apparently could not be done at [facility] and thus patient was transferred to [facility]. Patient denies having any chest pain, shortness of breath. He does have lower extremity edema. He is making urine. Lab work obtained at the outside facility revealed creatinine 4.2 and BUN 81. CAT scan of the chest, abdomen, pelvis was negative. Patient is s/p 1 unit of packed RBCs. Patient has been started on IV Lasix 40 mg every 12 hours. Home cardiac medications: Aspirin 81 mg daily, atorvastatin 80 mg at bedtime, Jardiance 10 mg daily, metoprolol tartrate 50 mg twice daily, Aldactone 25 mg daily, patient is also on levothyroxine 50 mcg daily 05/25 patient seen and examined. Patient denies any chest pain or pressure. Dialysis catheter is placed for dialysis likely later today. 05/26 patient seen and examined. Patient states he is feeling okay and just tired. He did have dialysis catheter placed and underwent dialysis this morning. Blood pressure lower in the 80s over 40s. We therefore will decrease his BP meds. echocardiogram shows preserved EF without significant valvular disease, mild aortic stenosis 05/27/2024 Patient examined this morning at the bedside. Patient states he was not feeling well overnight but is unable to elaborate on his symptoms and is rather vague in his description. He states this lasted for approximately 30 hours. The patient was not on telemetry monitoring at the time. He currently denies any chest pain or pressure. He denies any shortness of breath. Vital signs are stable. PHYSICAL EXAM: VITAL SIGNS: Reviewed. GENERAL: Well-developed in no acute distress. NECK: Supple. No JVD or thyromegaly LUNGS: Respirations even and unlabored. Lungs essentially clear to auscultation bilaterally. HEART: Regular rate and rhythm. S1 and S2 heard. EXTREMITIES: Normal range of motion. No clubbing or cyanosis. Peripheral pulses intact. No lower extremity edema ASSESSMENT: Acute kidney injury with initiation of hemodialysis on 05/25/2024 Chronic kidney disease Coronary artery disease Hypertension Hyperlipidemia Diabetes mellitus type 2 Anemia of chronic disease, status posttransfusion 1 unit packed RBCs PLAN: Continue current cardiac medications Continue hemodialysis per nephrology Initiate telemetry monitoring to assess for arrhythmias Further recommendations pending patient course Nurse practitioner note has been reviewed by physician. Signing provider agrees with the documented findings, assessment, and plan of care documented by PIERCING SPECIALIST as a scribe. Objective - Vital Signs Vital signs: Vital Signs Temp 97.9 F 05/27/24 07:04 Pulse 52 L 05/27/24 07:04 Resp 16 05/27/24 07:04 BP 129/56 05/27/24 07:04 Pulse Ox 96 05/27/24 07:04 FiO2 Intake & Output 05/26/24 05/27/24 05/27/24 18:59 06:59 18:59 Intake Total 760 Output Total 1400 Balance -640 Intake: Oral 360 Hemodialysis 400 Output: Hemodialysis 1400 Other: # Voids 0 1 - Labs CBC & Chem 7: 05/24/24 03:23 05/26/24 05:14 Labs: Abnormal Lab Results - Last 24 Hours (Table) 05/26/24 05/26/24 05/27/24 Range/Units 17:07 20:59 06:12 POC Glucose (mg/dL) 174 H 162 H 114 H (70-110) mg/dL
[2024-05-27 16:25] LABS: Glucose,Whole Blood 108 mg/dL (70-110)
--- NOTE | 2024-05-27 21:09 | P.PN ---
Subjective Progress Note Date: 05/27/24 84-year-old male was transferred from [facility] where he presented with shortness of breath acute hypoxemic respiratory failure requiring 4 L of oxygen found to have some pulm ashly, extensive pedal edema. Echocardiogram showed normal ejection fraction may be mild diastolic dysfunction. Patient was on IV Lasix 40 mg twice a day patient has chronic kidney disease with baseline creatinine of around 3-3.5 and has worsened after Lasix but diuresed well. Patient creatinine went up to 5.3 patient will require hemodialysis patient was transferred to [facility] for dialysis catheter placement by vascular surgery which will be placed tomorrow. Patient was also severely anemic received 1 unit of PRBC transfusion anemia secondary to anemia of chronic kidney disease patient ferritin levels are around 200 300. Patient is currently on IV Lasix. Patient is presently off oxygen. 05/25/2024 Admitted today in follow-up on the medical floor. Patient is scheduled to undergo a hemodialysis access today with vascular surgery. Patient will undergo hemodialysis afterwards, scheduled to undergo hemodialysis again tomorrow. Patient is continued on IV Lasix. Nephrology is following closely. Ejection fraction of 55 to 60% with trace mitral regurgitation, trace tricuspid regurgitation. 05/26/2024 Patient is evaluated today in follow up. Patient is undergoing his second session of hemodialysis today. He is less short of breath. He has a right chest wall permacath in place. Creatinine today 4.9. Social work is arranging a chair time for the patient to continue hemodialysis on discharge. 05/27/2024 Patient evaluated in follow up. He is not short of breath. He is making little urine. Pending social arranging outpatient hemodialysis chair time. Patient has been transitioned to oral torsemide. His lower extremity swelling has significantly improved. Review of Systems Constitutional: Denied any fatigue denied any fever. Cardio vascular: denied any chest pain, palpitations Gastrointestinal: denied any nausea, vomiting, diarrhea Pulmonary: Denied any shortness of breath cough Neurologic denied any new focal deficits All inpatient medications were reviewed and appropriate changes in these medications as dictated in the interval history and assessment and plan. PHYSICAL EXAMINATION: GENERAL: The patient is alert and oriented x3, not in any acute distress. Well developed, well nourished. HEENT: Pupils are round and equally reacting to light. EOMI. No scleral icterus. No conjunctival pallor. Normocephalic, atraumatic. No pharyngeal erythema. No thyromegaly. CARDIOVASCULAR: S1 and S2 present. No murmurs, rubs, or gallops. PULMONARY: Chest is clear to auscultation, no wheezing or crackles. ABDOMEN: Soft, nontender, nondistended, normoactive bowel sounds. No palpable organomegaly. MUSCULOSKELETAL: No joint swelling or deformity. EXTREMITIES: No cyanosis, clubbing, pedal edema significantly improved NEUROLOGICAL: Gross neurological examination did not reveal any focal deficits. SKIN: No rashes. Assessment and plan -Volume overload most probably secondary to renal dysfunction there is a possibility of mild chronic diastolic function with acute exacerbation. IV lasix has been changed to oral torsemide patient has been started on renal replacement therapy and undergoing second hemodialysis session today. Social work arranging chair time. -Acute renal failure on chronic kidney disease, possibility of cardiorenal syndrome progression of chronic kidney disease requiring hemodialysis -Anemia of chronic kidney disease without any acute blood loss no evidence of clinical GI bleed at this time patient is receiving on Arnesp. -Coronary artery disease -Type 2 diabetes mellitus -Hyperlipidemia -Hypertension -Benign prostatic hypertrophy DVT prophylaxis: Subcutaneous heparin The impression and plan of care has been dictated by Zuleima Toro Nurse Practitioner as directed. Dr. Shoshana MD I have performed a history and physical examination and medical decision making of this patient, discussed the same with the dictator, and agree with the dictators assessment and plan as written, documented as a scribe. Based on total visit time, I have performed more than 50% of this visit. Objective - Vital Signs Vital signs: Vital Signs Temp 98.3 F 05/27/24 19:11 Pulse 58 L 05/27/24 19:11 Resp 18 05/27/24 19:11 BP 131/62 05/27/24 19:11 Pulse Ox 94 L 05/27/24 19:11 FiO2 Intake & Output 05/27/24 05/27/24 05/28/24 06:59 18:59 06:59 Intake Total 400 Output Total 1000 Balance -600 Intake: Hemodialysis 400 Output: Hemodialysis 1000 Other: # Voids 1 0 - Labs CBC & Chem 7: 05/24/24 03:23 05/26/24 05:14 Labs: Abnormal Lab Results - Last 24 Hours (Table) 05/26/24 05/27/24 Range/Units 20:59 06:12 POC Glucose (mg/dL) 162 H 114 H (70-110) mg/dL Assessment and Plan Time with Patient: Less than 30
[2024-05-27 21:21] LABS: Glucose,Whole Blood 206 mg/dL (70-110)
[2024-05-28 05:58] LABS: Glucose,Whole Blood 102 mg/dL (70-110)
--- NOTE | 2024-05-28 07:20 | P.PN ---
Subjective HISTORY OF PRESENT ILLNESS: This is an 84-year-old male patient with past medical history of coronary artery disease, chronic back pain, gout, hyperlipidemia, hypertension, hypothyroidism, neuropathy, osteoarthritis, spinal stenosis, diabetes mellitus type 2. Patient initially presented to [facility] was transferred to [facility] due to acute kidney injury with chronic kidney disease. Patient was seen by nephrology and a dialysis catheter needed to be obtained which apparently could not be done at [facility] and thus patient was transferred to [facility]. Patient denies having any chest pain, shortness of breath. He does have lower extremity edema. He is making urine. Lab work obtained at the outside facility revealed creatinine 4.2 and BUN 81. CAT scan of the chest, abdomen, pelvis was negative. Patient is s/p 1 unit of packed RBCs. Patient has been started on IV Lasix 40 mg every 12 hours. Home cardiac medications: Aspirin 81 mg daily, atorvastatin 80 mg at bedtime, Jardiance 10 mg daily, metoprolol tartrate 50 mg twice daily, Aldactone 25 mg daily, patient is also on levothyroxine 50 mcg daily 05/25 patient seen and examined. Patient denies any chest pain or pressure. Dialysis catheter is placed for dialysis likely later today. 05/26 patient seen and examined. Patient states he is feeling okay and just tired. He did have dialysis catheter placed and underwent dialysis this morning. Blood pressure lower in the 80s over 40s. We therefore will decrease his BP meds. echocardiogram shows preserved EF without significant valvular disease, mild aortic stenosis 05/27/2024 Patient examined this morning at the bedside. Patient states he was not feeling well overnight but is unable to elaborate on his symptoms and is rather vague in his description. He states this lasted for approximately 3 hours. The patient was not on telemetry monitoring at the time. He currently denies any chest pain or pressure. He denies any shortness of breath. Vital signs are stable. 05/28 patient seen and examined. He states overall he is feeling well today. Underwent dialysis yesterday.denies any chest pain or pressure. Denies any further episodes of his vague not feeling well. Telemetry reviewed with normal sinus rhythm. PHYSICAL EXAM: VITAL SIGNS: Reviewed. GENERAL: Well-developed in no acute distress. NECK: Supple. No JVD or thyromegaly LUNGS: Respirations even and unlabored. Lungs essentially clear to auscultation bilaterally. HEART: Regular rate and rhythm. S1 and S2 heard. EXTREMITIES: Normal range of motion. No clubbing or cyanosis. Peripheral p ulses intact. No lower extremity edema ASSESSMENT: Acute kidney injury with initiation of hemodialysis on 05/25/2024 Chronic kidney disease Coronary artery disease Hypertension Hyperlipidemia Diabetes mellitus type 2 Anemia of chronic disease, status posttransfusion 1 unit packed RBCs PLAN: Continue current cardiac medications Continue hemodialysis per nephrology no further recommendations from cardiology standpoint. Please call for questions. Objective - Vital Signs Vital signs: Vital Signs Temp 98.6 F 05/28/24 02:16 Pulse 64 05/28/24 02:16 Resp 16 05/28/24 02:16 BP 113/60 05/28/24 02:16 Pulse Ox 95 05/28/24 02:16 FiO2 Intake & Output 05/27/24 05/28/24 05/28/24 18:59 06:59 18:59 Intake Total 400 Output Total 1000 Balance -600 Intake: Hemodialysis 400 Output: Hemodialysis 1000 Other: # Voids 0 1 - Labs CBC & Chem 7: 05/24/24 03:23 05/26/24 05:14 Labs: Abnormal Lab Results - Last 24 Hours (Table) 05/27/24 Range/Units 21:20 POC Glucose (mg/dL) 206 H (70-110) mg/dL
[2024-05-28 11:25] LABS: Glucose,Whole Blood 111 mg/dL (70-110)
--- NOTE | 2024-05-28 12:02 | P.PN ---
Subjective Patient is seen in follow-up for acute kidney injury on chronic kidney disease. Started on hemodialysis May 25, 2024. No active complaints. Has been voiding. No problems with dialysis yesterday. Vital signs are stable. General: No acute distress. HEENT: Head exam is unremarkable. LUNGS: No audible rhonchi or wheezes. HEART: Rate and Rhythm are regular. ABDOMEN: Nontender. EXTREMITITES: 1+ edema. Objective - Vital Signs Vital signs: Vital Signs Temp 98.2 F 05/28/24 07:05 Pulse 60 05/28/24 07:05 Resp 17 05/28/24 07:05 BP 102/62 05/28/24 07:05 Pulse Ox 96 05/28/24 07:05 FiO2 Intake & Output 05/27/24 05/28/24 05/28/24 18:59 06:59 18:59 Intake Total 400 Output Total 1000 Balance -600 Intake: Hemodialysis 400 Output: Hemodialysis 1000 Other: # Voids 0 1 - Labs CBC & Chem 7: 05/24/24 03:23 05/26/24 05:14 Labs: Abnormal Lab Results - Last 24 Hours (Table) 05/27/24 05/28/24 Range/Units 21:20 11:24 POC Glucose (mg/dL) 206 H 111 H (70-110) mg/dL Assessment and Plan Plan: Assessment: 1. Acute kidney injury secondary to ATN secondary to severe anemia and cardiorenal syndrome versus progression of underlying chronic kidney disease. Started on hemodialysis May 25, 2024 via permacat. 2. 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 3. Anemia of chronic kidney disease with component of acute blood loss. On Aranesp. 4. Hypertension with chronic kidney disease. Stable. 5. Chronic kidney disease mineral bone disease. Phosphorus level 5.2 dated May 25, 2024. 6. Hyperkalemia secondary to acute kidney injury. Improved. 7. Diabetes mellitus. Plan: Hemodialysis tomorrow. He will be maintained on Saturday schedule outpatient. Maintain torsemide 40 mg once daily. Monitor for renal recovery outpatient. Case management to set up outpatient hemodialysis. Stable for discharge from nephrology standpoint.
[2024-05-28 13:24] VITALS: BMI 27.8
--- NOTE | 2024-05-28 16:16 | P.PN ---
Subjective Progress Note Date: 05/28/24 84-year-old male was transferred from [facility] where he presented with shortness of breath acute hypoxemic respiratory failure requiring 4 L of oxygen found to have some pulm ashly, extensive pedal edema. Echocardiogram showed normal ejection fraction may be mild diastolic dysfunction. Patient was on IV Lasix 40 mg twice a day patient has chronic kidney disease with baseline creatinine of around 3-3.5 and has worsened after Lasix but diuresed well. Patient creatinine went up to 5.3 patient will require hemodialysis patient was transferred to [facility] for dialysis catheter placement by vascular surgery which will be placed tomorrow. Patient was also severely anemic received 1 unit of PRBC transfusion anemia secondary to anemia of chronic kidney disease patient ferritin levels are around 200 300. Patient is currently on IV Lasix. Patient is presently off oxygen. 05/25/2024 Admitted today in follow-up on the medical floor. Patient is scheduled to undergo a hemodialysis access today with vascular surgery. Patient will undergo hemodialysis afterwards, scheduled to undergo hemodialysis again tomorrow. Patient is continued on IV Lasix. Nephrology is following closely. Ejection fraction of 55 to 60% with trace mitral regurgitation, trace tricuspid regurgitation. 05/26/2024 Patient is evaluated today in follow up. Patient is undergoing his second session of hemodialysis today. He is less short of breath. He has a right chest wall permacath in place. Creatinine today 4.9. Social work is arranging a chair time for the patient to continue hemodialysis on discharge. 05/27/2024 Patient evaluated in follow up. He is not short of breath. He is making little urine. Pending social arranging outpatient hemodialysis chair time. Patient has been transitioned to oral torsemide. His lower extremity swelling has significantly improved. 05/28/2024 Patient is evaluated today in follow-up on the medical floor. Patient has been set up with a chair time for Saturday and is unable to start outpatient hemodialysis until Saturday therefore patient will need to remain overnight and undergo hemodialysis tomorrow. Patient is not reporting any shortness of breath he is not having lower extremity swelling. Medically he is stable at this time. Review of Systems Constitutional: Denied any fatigue denied any fever. Cardio vascular: denied any chest pain, palpitations Gastrointestinal: denied any nausea, vomiting, diarrhea Pulmonary: Denied any shortness of breath cough Neurologic denied any new focal deficits All inpatient medications were reviewed and appropriate changes in these medications as dictated in the interval history and assessment and plan. PHYSICAL EXAMINATION: GENERAL: The patient is alert and oriented x3, not in any acute distress. Well developed, well nourished. HEENT: Pupils are round and equally reacting to light. EOMI. No scleral icterus. No conjunctival pallor. Normocephalic, atraumatic. No pharyngeal erythema. No th yromegaly. CARDIOVASCULAR: S1 and S2 present. No murmurs, rubs, or gallops. PULMONARY: Chest is clear to auscultation, no wheezing or crackles. ABDOMEN: Soft, nontender, nondistended, normoactive bowel sounds. No palpable organomegaly. MUSCULOSKELETAL: No joint swelling or deformity. EXTREMITIES: No cyanosis, clubbing, pedal edema significantly improved NEUROLOGICAL: Gross neurological examination did not reveal any focal deficits. SKIN: No rashes. Assessment and plan -Volume overload most probably secondary to renal dysfunction there is a possibility of mild chronic diastolic function with acute exacerbation. IV lasix has been changed to oral torsemide patient has been started on renal replacement therapy and undergoing second hemodialysis session today. Social work arranging chair time will be Saturday outpatient and patient be discharged tomorrow after hemodialysis. Will repeat blood work in the morning. -Acute renal failure on chronic kidney disease, possibility of cardiorenal syndrome progression of chronic kidney disease requiring hemodialysis -Anemia of chronic kidney disease without any acute blood loss no evidence of clinical GI bleed at this time patient is receiving on Arnesp. -Coronary artery disease -Type 2 diabetes mellitus -Hyperlipidemia -Hypertension -Benign prostatic hypertrophy DVT prophylaxis: Subcutaneous heparin The impression and plan of care has been dictated by Zuleima Toro, Nurse Practitioner as directed. Dr. Shoshana MD I have performed a history and physical examination and medical decision making of this patient, discussed the same with the dictator, and agree with the dictators assessment and plan as written, documented as a scribe. Based on total visit time, I have performed more than 50% of this visit. Objective - Vital Signs Vital signs: Vital Signs Temp 98.3 F 05/28/24 13:44 Pulse 54 L 05/28/24 13:44 Resp 17 05/28/24 13:44 BP 147/59 05/28/24 13:44 Pulse Ox 96 05/28/24 13:44 FiO2 Intake & Output 05/27/24 05/28/24 05/28/24 18:59 06:59 18:59 Intake Total 400 Output Total 1000 Balance -600 Weight 75.86 kg Intake: Hemodialysis 400 Output: Hemodialysis 1000 Other: # Voids 0 1 - Labs CBC & Chem 7: 05/24/24 03:23 05/26/24 05:14 Labs: Abnormal Lab Results - Last 24 Hours (Table) 05/27/24 05/28/24 Range/Units 21:20 11:24 POC Glucose (mg/dL) 206 H 111 H (70-110) mg/dL Assessment and Plan Time with Patient: Less than 30
[2024-05-28 16:23] LABS: Glucose,Whole Blood 141 mg/dL (70-110)
[2024-05-28 21:07] LABS: Glucose,Whole Blood 142 mg/dL (70-110)
[2024-05-29 06:02] LABS: Glucose,Whole Blood 101 mg/dL (70-110)
[2024-05-29 07:20] VITALS: RESP 17
[2024-05-29 08:34] LABS: BUN/Creat Ratio 11.08 Ratio (12.00-20.00); Blood Urea Nitrogen 55.4 mg/dL (9.0-27.0); Glucose 98 mg/dL (70-110)
[2024-05-29 08:35] LABS: Calcium 7.9 mg/dL (8.7-10.3); Carbon Dioxide 25.2 mmol/L (21.6-31.8); Chloride 98 mmol/L (96-109); Sodium 136 mmol/L (135-145)
[2024-05-29 08:40] LABS: Basophils # (A) 0.01 X 10*3/uL (0.00-0.10); Basophils % (A) 0.2 %; Eosinophils # (A) 0.05 X 10*3/uL (0.04-0.35); Eosinophils % (A) 0.8 %; HCT 25.5 % (39.6-50.0); HGB 8.2 g/dL (13.0-17.0); Lymphocytes # (A) 0.65 X 10*3/uL (0.90-5.00); Lymphocytes % (A) 10.2 %; MCH 29.4 pg (27.0-32.0); MCHC 32.2 g/dL (32.0-37.0); MCV 91.4 FL (80.0-97.0); Mean Platelet Volume 10.2 FL (9.5-12.2); Monocytes # (A) 0.52 X 10*3/uL (0.20-1.00); Monocytes % (A) 8.1 %; NRBC Per 100 WBC 0 X 10*3/uL (0.00-0.01); Neutrophils # (A) 5.13 X 10*3/uL (1.80-7.70); Neutrophils % (A) 80.2 %; Platelet Count 214 X 10*3/uL (140-440); RBC 2.79 X 10*6/uL (4.40-5.60); RDW 14.4 % (11.5-14.5); WBC 6.39 X 10*3/uL (4.50-10.00)
--- NOTE | 2024-05-29 11:24 | P.PN ---
Subjective Patient is seen in follow-up for acute kidney injury on chronic kidney disease. Started on hemodialysis May 25, 2024. No active complaints. Has been voiding. tolerating dialysis well. Plan for discharge home today after dialysis. Vital signs are stable. General: No acute distress. HEENT: Head exam is unremarkable. LUNGS: No audible rhonchi or wheezes. HEART: Rate and Rhythm are regular. ABDOMEN: Nontender. EXTREMITITES: 1+ edema. Objective - Vital Signs Vital signs: Vital Signs Temp 97.9 F 05/29/24 06:47 Pulse 51 L 05/29/24 06:47 Resp 17 05/29/24 06:47 BP 154/80 05/29/24 06:47 Pulse Ox 94 L 05/29/24 06:47 FiO2 Intake & Output 05/28/24 05/29/24 05/29/24 18:59 06:59 18:59 Weight 75.86 kg Other: # Voids 0 2 # Bowel Movements 1 - Labs CBC & Chem 7: 05/29/24 05:59 05/29/24 05:59 Labs: Abnormal Lab Results - Last 24 Hours (Table) 05/28/24 05/28/24 05/28/24 Range/Units 11:24 16:21 21:05 RBC (4.40-5.60) X 10*6/uL Hgb (13.0-17.0) g/dL Hct (39.6-50.0) % Lymphocytes # (0.90-5.00) X 10*3/uL Anion Gap (4.00-12.00) mmol/L BUN (9.0-27.0) mg/dL Creatinine (0.6-1.5) mg/dL Est GFR (CKD-EPI) (>=60) BUN/Creatinine Ratio (12.00-20.00) Ratio POC Glucose (mg/dL) 111 H 141 H 142 H (70-110) mg/dL Calcium (8.7-10.3) mg/dL 05/29/24 05/29/24 Range/Units 05:59 05:59 RBC 2.79 L (4.40-5.60) X 10*6/uL Hgb 8.2 L (13.0-17.0) g/dL Hct 25.5 L (39.6-50.0) % Lymphocytes # 0.65 L (0.90-5.00) X 10*3/uL Anion Gap 12.80 H (4.00-12.00) mmol/L BUN 55.4 H (9.0-27.0) mg/dL Creatinine 5.0 H (0.6-1.5) mg/dL Est GFR (CKD-EPI) 11 L (>=60) BUN/Creatinine Ratio 11.08 L (12.00-20.00) Ratio POC Glucose (mg/dL) (70-110) mg/dL Calcium 7.9 L (8.7-10.3) mg/dL Assessment and Plan Plan: Assessment: 1. Acute kidney injury secondary to ATN secondary to severe anemia and cardiorenal syndrome versus progression of underlying chronic kidney disease. Started on hemodialysis May 25, 2024 via permacath. 2. 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 3. Anemia of chronic kidney disease with component of acute blood loss. On Aranesp. 4. Hypertension with chronic kidney disease. Stable. 5. Chronic kidney disease mineral bone disease. Phosphorus level 5.2 dated May 25, 2024. 6. Hyperkalemia secondary to acute kidney injury. Improved. 7. Diabetes mellitus. Plan: currently seen while undergoing hemodialysis. He will be maintained on Saturday schedule outpatient. Maintain torsemide 40 mg once daily. Monitor for renal recovery outpatient. Stable for discharge from nephrology standpoint.
[2024-05-29 11:34] LABS: Glucose,Whole Blood 116 mg/dL (70-110)
[2024-05-29 14:46] VITALS: BP 118/56; PULSE 61; TEMP 98.1
== END 2024-05-29 17:57 | disposition home or self-care (01) | DRG 673 ==
LOC: 4SSUR 15:58
PROVIDERS: ADMIT Internal Medicine; ATTEND Internal Medicine
PROC: 5A1D70Z Performance of Urinary Filtration, Intermittent, Less than 6 Hours Per Day (ICD-10-PCS; 2024-05-24)
PROC: B5181ZA Fluoroscopy of Superior Vena Cava using Low Osmolar Contrast, Guidance (ICD-10-PCS; 2024-05-25)
PROC: B548ZZA Ultrasonography of Superior Vena Cava, Guidance (ICD-10-PCS; 2024-05-25)
PROC: 0JH63XZ Insertion of Tunneled Vascular Access Device into Chest Subcutaneous Tissue and Fascia, Percutaneous Approach (ICD-10-PCS; principal; 2024-05-25 08:45)
PROC: 02HV33Z Insertion of Infusion Device into Superior Vena Cava, Percutaneous Approach (ICD-10-PCS; 2024-05-25 08:45)
DX: N17.0 Acute kidney failure with tubular necrosis (principal); J96.01 Acute respiratory failure with hypoxia; I12.0 Hypertensive chronic kidney disease with stage 5 chronic kidney disease or end stage renal disease; N18.6 End stage renal disease; E87.70 Fluid overload, unspecified; D63.1 Anemia in chronic kidney disease; E11.22 Type 2 diabetes mellitus with diabetic chronic kidney disease; E11.42 Type 2 diabetes mellitus with diabetic polyneuropathy; I25.10 Atherosclerotic heart disease of native coronary artery without angina pectoris; E78.5 Hyperlipidemia, unspecified; N40.0 Benign prostatic hyperplasia without lower urinary tract symptoms; M19.90 Unspecified osteoarthritis, unspecified site; Z95.1 Presence of aortocoronary bypass graft; M89.8X9 Other specified disorders of bone, unspecified site; E87.5 Hyperkalemia; R60.0 Localized edema; I08.3 Combined rheumatic disorders of mitral, aortic and tricuspid valves; E03.9 Hypothyroidism, unspecified; I08.1 Rheumatic disorders of both mitral and tricuspid valves; M10.9 Gout, unspecified; G89.29 Other chronic pain; M54.9 Dorsalgia, unspecified; Z79.82 Long term (current) use of aspirin; Z79.84 Long term (current) use of oral hypoglycemic drugs; Z79.890 Hormone replacement therapy; Z79.899 Other long term (current) drug therapy; Z87.891 Personal history of nicotine dependence; Z99.2 Dependence on renal dialysis
CPT/HCPCS: 36558; 71045; 76937; 77001; 80048; 80053; 83036; 83735; 84100; 85025; 85610; 86704; 86706; 87340; 90935; 93005; 93306

== ENCOUNTER 2024-06-06 03:59 | Inpatient (IN) | payer MEDICARE, OTHER ==
[2024-06-06 04:29] LABS: Basophils % (A) 0 %; Eosinophils # (A) 0.1 k/uL (0-0.7); Eosinophils % (A) 1 %; HCT 23.9 % (39.0-53.0); HGB 7.7 gm/dL (13.0-17.5); Hypochromasia Moderate; Lymphocytes # (A) 0.4 k/uL (1.0-4.8); Lymphocytes % (A) 7 %; MCH 29.3 pg (25.0-35.0); MCHC 32.2 g/dL (31.0-37.0); Mean Platelet Volume 7.4; Monocytes # (A) 0.4 k/uL (0-1.0); Monocytes % (A) 7 %; Neutrophils # (A) 5.2 k/uL (1.3-7.7); Neutrophils % (A) 83 %; Platelet Count 259 k/uL (150-450); RBC 2.63 m/uL (4.30-5.90); RDW 14.1 % (11.5-15.5); WBC 6.3 k/uL (3.8-10.6)
[2024-06-06 04:47] LABS: ALT 40 U/L (4-49); AST 67 U/L (17-59); African American GFR (CKD) 25 (>60 ml/min/1.73 sqM); Albumin 2.6 g/dL (3.5-5.0); Alkaline Phosphatase 141 U/L (38-126); Anion Gap 5 mmol/L; Blood Urea Nitrogen 30 mg/dL (9-20); Calcium 7.7 mg/dL (8.4-10.2); Carbon Dioxide 25 mmol/L (22-30); Chloride 101 mmol/L (98-107); Glucose 166 mg/dL (74-99); Non-African American GFR(CKD) 21 (>60 ml/min/1.73 sqM); Sodium 131 mmol/L (137-145); Total Bilirubin 0.6 mg/dL (0.2-1.3); Total Protein 6.1 g/dL (6.3-8.2)
[2024-06-06] MEDS ORDERED: NALOXONE 0.4 MG/ML 1 ML VIAL IV PRN (07:26)
--- NOTE | 2024-06-06 09:09 | ED ---
General Adult HPI - General Chief complaint: Urogenital Stated complaint: SEPSIS Time Seen by Provider: 06/06/24 04:12 Source: patient, EMS Mode of arrival: EMS Limitations: no limitations - History of Present Illness Initial comments: Patient is an 84-year-old man who is transferred here from [facility] for concern about sepsis. The patient had been having worsening of generalized weakness going on for approximately 2 to 3 days. The patient almost had been discharged from this facility approximately 5 days ago where he was diagnosed with renal failure. He had dialysis catheter placement and was starting dialysis treatments. The patient found to have fever at the other hospital and no definite source. He had workup including a urinalysis which was unremarkable. CBC showed a white blood cell count of 7000, hemoglobin 8.4, platelets 247. Patient's creatinine 2.7. Glucose 119. Other chemistries normal. Lactic acid negative -: days(s) Severity scale (1-10): 0 Consistency: constant Improves with: none Worsens with: none Associated Symptoms: loss of appetite, weakness Treatments Prior to Arrival: none - Related Data Home Medications Medication Instructions Recorded Confirmed Ascorbic Acid [Vitamin C] 500 mg PO DAILY 05/24/24 06/06/24 Aspirin EC [Ecotrin Low Dose] 81 mg PO DAILY 05/24/24 06/06/24 Atorvastatin [Lipitor] 80 mg PO HS 05/24/24 06/06/24 Clobetasol Propionate [Temovate 1 applic TOPICAL BID PRN 05/24/24 06/06/24 0.05% Cream] Doxazosin [Cardura] 4 mg PO BID 05/24/24 06/06/24 Ferrous Sulfate [Iron (65 MG 325 mg PO DAILY 05/24/24 06/06/24 Elemental)] Finasteride [Proscar] 5 mg PO DAILY 05/24/24 06/06/24 Hydrocortisone Cream 1 applic TOPICAL BID PRN 05/24/24 06/06/24 [Hydrocortisone 2.5% Cream] Levothyroxine Sodium [Synthroid] 50 mcg PO DAILY 05/24/24 06/06/24 Magnesium Oxide [Mag-Ox] 400 mg PO DAILY 05/24/24 06/06/24 Metoprolol Tartrate [Lopressor] 50 mg PO BID 05/24/24 06/06/24 Mv-Min/Folic/K1/Lycopen/Lutein 1 tab PO DAILY 05/24/24 06/06/24 [Centrum Silver Men Tablet] Nystatin 100,000Unit/gm Cream 1 applic TOPICAL BID PRN 05/24/24 06/06/24 [Mycostatin Cream] Triamcinolone 0.1% Cream [Kenalog 1 applic TOPICAL BID PRN 05/24/24 06/06/24 0.1% Cream] Previous Rx's Medication Instructions Recorded Torsemide [Demadex] 40 mg PO DAILY 30 Days #60 tablet 05/29/24 hydrALAZINE HCL [Apresoline] 50 mg PO TID 30 Days #90 tab 05/29/24 Nystatin 100,000 Unit/gm Powd 1 applic TOPICAL BID #15 gm 06/12/24 [Mycostatin Powder] Spironolactone [Aldactone] 25 mg PO DAILY #30 tab 06/12/24 cefUROXime axetiL [Ceftin] 500 mg PO BID 5 Days #10 tab 06/12/24 Allergies Allergy/AdvReac Type Severity Reaction Status Date / Time No Known Allergies Allergy Verified 06/06/24 09:55 Review of Systems ROS Statement: Those systems with pertinent positive or pertinent negative responses have been documented in the HPI. ROS Other: All systems not noted in ROS Statement are negative. Constitutional: Reports: fever, weakness Respiratory: Denies: cough, dyspnea, wheezes Cardiovascular: Denies: chest pain, palpitations, syncope Gastrointestinal: Denies: abdominal pain, nausea, vomiting, diarrhea Genitourinary: Denies: dysuria, hematuria Musculoskeletal: Denies: back pain Skin: Denies: rash Neurological: Denies: headache, weakness Past Medical History Past Medical History: Coronary Artery Disease (CAD), Diabetes Mellitus, Hyperlipidemia, Hypertension, Osteoarthritis (OA), Renal Disease History of Any Multi-Drug Resistant Organisms: None Reported Past Surgical History: No Surgical Hx Reported Past Psychological History: No Psychological Hx Reported Smoking Status: Former smoker Past Alcohol Use History: None Reported Past Drug Use History: None Reported General Exam Limitations: no limitations General appearance: alert, in no apparent distress Head exam: Present: atraumatic, normocephalic Eye exam: Present: normal appearance. Absent: scleral icterus, conjunctival injection ENT exam: Present: mucous membranes dry Neck exam: Present: normal inspection Respiratory exam: Present: normal lung sounds bilaterally, rales (Bases bilaterally). Absent: respiratory distress, wheezes, rhonchi, stridor, accessory muscle use Cardiovascular Exam: Present: normal rhythm, bradycardia, normal heart sounds. Absent: systolic murmur, diastolic murmur, rubs, gallop GI/Abdominal exam: Present: soft. Absent: distended, tenderness, guarding, rebound, rigid, mass Extremities exam: Present: normal inspection, normal capillary refill. Absent: pedal edema, calf tenderness Back exam: Present: normal inspection. Absent: CVA tenderness (R), CVA tenderness (L) Neurological exam: Present: alert, CN II-XII intact. Absent: motor sensory deficit Skin exam: Present: warm, dry, intact, normal color. Absent: rash Course Vital Signs 06/06/24 06/06/24 06/06/24 04:01 05:05 06:55 Temperature 98.5 F Pulse Rate 48 L 46 L 48 L Respiratory 16 16 16 Rate Blood Pressure 123/53 115/62 114/82 O2 Sat by Pulse 98 98 99 Oximetry 06/06/24 07:43 Temperature Pulse Rate 51 L Respiratory 18 Rate Blood Pressure 111/57 O2 Sat by Pulse 98 Oximetry Medical Decision Making - Medical Decision Making Was pt. sent in by a medical professional or institution (, PA, SR SOLUTIONS CONSULTANT, urgent care, hospital, or intermediate...) When possible be specific @ -[Yes, patient arrives as transfer from the outside hospital. Did you speak to anyone other than the patient for history (EMS, parent, family, police, friend...)? What history was obtained from this source @ -[No] Did you review nursing and triage notes (agree or disagree)? Why? @ -[I reviewed and agree with nursing and triage notes] Were old charts reviewed (outside hosp., previous admission, EMS record, old EKG, old radiological studies, urgent care reports/EKG's, intermediate records)? Report findings @ -[Transfer records were reviewed Differential Diagnosis (chest pain, altered mental status, abdominal pain women, abdominal pain men, vaginal bleeding, weakness, fever, dyspnea, syncope, headache, dizziness, GI bleed, back pain, seizure, CVA, palpatations, mental health, musculoskeletal)? @ -[Differential Weakness: Hypoglycemia, shock, sepsis, hyponatremia, anemia, infection, [place], ETOH, adverse medicine reaction, overdose, stroke, this is not meant to be an all-inclusive l ist. EKG interpreted by me (3pts min.). @ -[As above] X-rays interpreted by me (1pt min.). @ -[None done] CT interpreted by me (1pt min.). @ -[None done] U/S interpreted by me (1pt. min.). @ -[None done] What testing was considered but not performed or refused? (CT, X-rays, U/S, labs)? Why? @ -[None] What meds were considered but not given or refused? Why? @ -[None] Did you discuss the management of the patient with other professionals (professionals i.e. , PA, SR SOLUTIONS CONSULTANT, lab, RT, psych nurse, social work administrator, cotton factor, teacher, desk officer, medical case manager)? Give summary @ -[Case discussed with admitting physician and treatment recommendations incorporated Was smoking cessation discussed for >3mins.? @ -[No] Was critical care preformed (if so, how long)? @ -[No] Were there social determinants of health that impacted care today? How? (Homelessness, low income, unemployed, alcoholism, drug addiction, transportation, low edu. Level, literacy, decrease access to med. care, longterm, rehab)? @ -[No] Was there de-escalation of care discussed even if they declined (Discuss DNR or withdrawal of care, Hospice)? DNR status @ -[No] What co-morbidities impacted this encounter? (DM, HTN, Smoking, COPD, CAD, Cancer, CVA, ARF, Chemo, Hep., AIDS, mental health diagnosis, sleep apnea, morbid obesity)? @ -[Diabetes, hypertension, chronic renal failure Was patient admitted / discharged? Hospital course, mention meds given and route, prescriptions, significant lab abnormalities, going to OR and other pertinent info. @ -[This patient is an 84-year-old man transferred from the outside facility to have further evaluation related to fever and concern about developing sepsis. At arrival sepsis criteria negative. Patient will be admitted pending culture results and have infectious disease evaluation Undiagnosed new problem with uncertain prognosis? @ -[No] Drug Therapy requiring intensive monitoring for toxicity (Heparin, Nitro, Insulin, Cardizem)? @ -[No] Were any procedures done? @ -[No] Diagnosis/symptom? @ -[Acute fever Neurolyse weakness Anemia Chronic renal failure Acute, or Chronic, or Acute on Chronic? @ -[Acute Uncomplicated (without systemic symptoms) or Complicated (systemic symptoms)? @ -[Complicated by generalized weakness Side effects of treatment? @ -[No] Exacerbation, Progression, or Severe Exacerbation? @ -[No] Poses a threat to life or bodily function? How? (Chest pain, [place], [place], pneumonia, PE, COPD, DKA, ARF, appy, cholecystitis, CVA, Diverticulitis, Homicidal, Suicidal, threat to staff... and all critical care pts) @ -[Uncertain at admission, requires further evaluation - Lab Data Result diagrams: 06/12/24 06:36 06/11/24 06:19 Lab Results 06/06/24 06/06/24 06/06/24 Range/Units 04:20 04:20 04:20 WBC 6.3 (3.8-10.6) k/uL RBC 2.63 L (4.30-5.90) m/uL Hgb 7.7 L (13.0-17.5) gm/dL Hct 23.9 L (39.0-53.0) % MCV 91.0 (80.0-100.0) fL MCH 29.3 (25.0-35.0) pg MCHC 32.2 (31.0-37.0) g/dL RDW 14.1 (11.5-15.5) % Plt Count 259 (150-450) k/uL MPV 7.4 Neutrophils % 83 % Lymphocytes % 7 % Monocytes % 7 % Eosinophils % 1 % Basophils % 0 % Neutrophils # 5.2 (1.3-7.7) k/uL Lymphocytes # 0.4 L (1.0-4.8) k/uL Monocytes # 0.4 (0-1.0) k/uL Eosinophils # 0.1 (0-0.7) k/uL Basophils # 0.0 (0-0.2) k/uL Hypochromasia Moderate Sodium 131 L (137-145) mmol/L Potassium 4.0 (3.5-5.1) mmol/L Chloride 101 (98-107) mmol/L Carbon Dioxide 25 (22-30) mmol/L Anion Gap 5 mmol/L BUN 30 H (9-20) mg/dL Creatinine 2.66 H (0.66-1.25) mg/dL Est GFR (CKD-EPI)AfAm 25 (>60 ml/min/1.73 sqM) Est GFR (CKD-EPI)NonAf 21 (>60 ml/min/1.73 sqM) Glucose 166 H (74-99) mg/dL POC Glucose (mg/dL) (70-110) mg/dL POC Glu Occ Therapist ID Plasma Lactic Acid Al[place] 0.8 (0.7-2.0) mmol/L Calcium 7.7 L (8.4-10.2) mg/dL Phosphorus (2.5-4.5) mg/dL Total Bilirubin 0.6 (0.2-1.3) mg/dL AST 67 H (17-59) U/L ALT 40 (4-49) U/L Alkaline Phosphatase 141 H (38-126) U/L Total Protein 6.1 L (6.3-8.2) g/dL Albumin 2.6 L (3.5-5.0) g/dL 06/06/24 06/06/24 Range/Units 04:47 12:07 WBC (3.8-10.6) k/uL RBC (4.30-5.90) m/uL Hgb (13.0-17.5) gm/dL Hct (39.0-53.0) % MCV (80.0-100.0) fL MCH (25.0-35.0) pg MCHC (31.0-37.0) g/dL RDW (11.5-15.5) % Plt Count (150-450) k/uL MPV Neutrophils % % Lymphocytes % % Monocytes % % Eosinophils % % Basophils % % Neutrophils # (1.3-7.7) k/uL Lymphocytes # (1.0-4.8) k/uL Monocytes # (0-1.0) k/uL Eosinophils # (0-0.7) k/uL Basophils # (0-0.2) k/uL Hypochromasia Sodium (137-145) mmol/L Potassium (3.5-5.1) mmol/L Chloride (98-107) mmol/L Carbon Dioxide (22-30) mmol/L Anion Gap mmol/L BUN (9-20) mg/dL Creatinine (0.66-1.25) mg/dL Est GFR (CKD-EPI)AfAm (>60 ml/min/1.73 sqM) Est GFR (CKD-EPI)NonAf (>60 ml/min/1.73 sqM) Glucose (74-99) mg/dL POC Glucose (mg/dL) 94 (70-110) mg/dL POC Glu Occ Therapist ID [place], [place] Plasma Lactic Acid Alphonso (0.7-2.0) mmol/L Calcium (8.4-10.2) mg/dL Phosphorus 3.5 (2.5-4.5) mg/dL Total Bilirubin (0.2-1.3) mg/dL AST (17-59) U/L ALT (4-49) U/L Alkaline Phosphatase (38-126) U/L Total Protein (6.3-8.2) g/dL Albumin (3.5-5.0) g/dL Disposition Clinical Impression: Fever, Weakness Disposition: ADMITTED IP TO THIS HOSP Condition: Good Is patient prescribed a controlled substance at d/c from ED?: No
[2024-06-06] MEDS: DAPAGLIFLOZIN PROPANEDIOL 5 MG TABLET PO SCH (11:19)
[2024-06-06] MEDS: CHLORTHALIDONE 25 MG TAB PO SCH (11:20)
[2024-06-06] MEDS: SPIRONOLACTONE 25 MG TAB PO SCH (11:20)
[2024-06-06] MEDS: LOSARTAN 25 MG TAB PO SCH (11:20)
[2024-06-06 12:09] LABS: Glucose,Whole Blood 94 mg/dL (70-110)
[2024-06-06] MEDS: ASPIRIN 81 MG PO SCH (12:43)
[2024-06-06] MEDS: LEVOTHYROXINE 50 MCG TAB PO SCH (12:43)
[2024-06-06] MEDS: FINASTERIDE 5 MG TAB PO SCH (12:43)
[2024-06-06] MEDS: MAGNESIUM OXIDE 400 MG TAB PO SCH (12:44)
[2024-06-06] MEDS ORDERED: CLOBETASOL PROP 0.05% CR 15GM TOPICAL PRN (12:46)
[2024-06-06] MEDS ORDERED: NYSTATIN 100,000UNIT/GM CREAM 30 GM TUBE TOPICAL PRN (12:46)
[2024-06-06] MEDS ORDERED: HYDROCORTISONE 1% CREAM 30 GM TUBE TOPICAL PRN (12:46)
[2024-06-06] MEDS ORDERED: TRIAMCINOLONE 0.1% CREAM 80 GM TUBE TOPICAL PRN (12:46)
--- NOTE | 2024-06-06 13:21 | XR ---
EXAMINATION TYPE: XR chest 1V portable DATE OF EXAM: 06/06/2024 COMPARISON: 05/25/2024 HISTORY: CHF TECHNIQUE: Single frontal view of the chest is obtained. FINDINGS: There is prior CABG surgery. There is a right jugular permacatheter the tip of which is in the SVC/RA junction. There is no pleural effusion or pneumothorax. The heart and pulmonary vasculature are normal. There is no airspace consolidation. The osseous structures are intact. IMPRESSION: 1. No definite acute cardiopulmonary disease. 2. CABG surgery. 3. No change in the right-sided permacatheter.
[2024-06-06] MEDS: METOPROLOL TARTRATE 50 MG TAB PO SCH (13:48)
--- NOTE | 2024-06-06 13:53 | P.HPIM ---
History of Present Illness H&P Date: 06/06/24 Chief Complaint: Mechanical Fall, Possible Sepsis History of present illness; 84-year-old man transferred here from [facility] for concerns about sepsis. Patient's family is with him in the room, states he had been battling infection, with intermittent fevers that would sometimes break overnight, and treatment with antibiotic. Patient has been having worsening generalized weakness for the past 2-3 days. He states that while using his walker he fell on his right side while going to the bathroom, patient states he currently has no pain, stating that the only pain he felt at the time is a small scrape on the top of his right hand. Patient states he currently feels well and has no current complaints. Patient at home has been discharged approximately 5 days ago where he was diagnosed with renal failure. He had a dialysis catheter placement on starting dialysis treatment. Patient was then found to have fever at the other hospital with no definitive source indicated. His workup there included a urinalysis which was unremarkable. CBC showed a white blood cell count of 7000, hemoglobin of 8.4, platelets 247. Patient's creatinine was 2.7. Glucose was 119. Other chemistries were considered normal, lactic acid was negative. Patient's past medical history is significant for coronary artery disease, diabetes mellitus, hyperlipidemia, h ypertension, osteoarthritis and renal disease. On arrival patient blood pressure was 123/53, heart rate 48, saturating 98% on room air. He is currently afebrile. Initial lab work done in the ER showed WBC 6.3, Hgb 7.7, Hct 23.9, sodium 131, BUN 30, creatinine 2.66, glucose 166, calcium 7.7, AST 67, alkaline phosphatase 141, total protein 6.1, albumin 2.6 EKG done in the ER showed heart rate of , no ST segment elevation or depression seen, no T-wave inversions seen. Patient admitted to internal medicine service REVIEW OF SYSTEMS: CONSTITUTIONAL: Fever and weakness. HEENT: No recent visual problems or hearing problems. Denied any sore throat. CARDIOVASCULAR: No chest pain, orthopnea, PND, no palpitations, no syncope. PULMONARY: No shortness of breath, no cough, no hemoptysis. GASTROINTESTINAL: No diarrhea, no nausea, no vomiting, no abdominal pain. NEUROLOGICAL: No headaches, no weakness, no numbness. HEMATOLOGICAL: Denies any bleeding or petechiae. GENITOURINARY: Denies any burning micturition, frequency, or urgency. MUSCULOSKELETAL/RHEUMATOLOGICAL: Denies any joint pain, swelling, or any muscle pain. Minor pain on the top of his right hand as a result of fall. ENDOCRINE: Denies any polyuria or polydipsia. The rest of the 14-point review of systems is negative. PHYSICAL EXAMINATION: GENERAL: The patient is alert and oriented x3, not in any acute distress. Well developed, well nourished. HEENT: Pupils are round and equally reacting to light. EOMI. No scleral icterus. No conjunctival pallor. Normocephalic, atraumatic. No pharyngeal erythema. No thyromegaly. CARDIOVASCULAR: S1 and S2 present. No murmurs, rubs, or gallops. PULMONARY: Chest is clear to auscultation, no wheezing or crackles. ABDOMEN: Soft, nontender, nondistended, normoactive bowel sounds. No palpable organomegaly. MUSCULOSKELETAL: No joint swelling or deformity. EXTREMITIES: No cyanosis, clubbing, or pedal edema. Small scrape noted on the top of his right hand. GENITOURINARY: evidence of healing and current infection along the upper groin area below the umbilicus, possible fungal in origin NEUROLOGICAL: Gross neurological examination did not reveal any focal deficits. SKIN: No rashes. Assessment and plan #Possible sepsis of unknown origin Family states patient has been battling an infection, with fevers and elevated WBCs States he has been taking antibiotics Current labs show WBCs 6.3, and the patient being afebrile, with a blood pressure of 128/59 - Blood cultures drawn from peripheral and catheter Patient started on Rocephin 2 g daily #Chronic kidney disease, newly on dialysis Patient states he has completed 1 week of dialysis, on a Saturday, Saturday, Saturday schedule Patient receives dialysis in [place], had previously seen Dr. Eubanks Patient has a palindrome dialysis catheter #Mechanical fall Patient states while using his walker to walk to the bathroom, he stumbled and fell on his right side At the time of the fall patient states he had no pain on his right side, minor discomfort due to a scrape on the top of his right hand Patient states he has no current pain or discomfort #Potential fungal infection of the groin Patient states he has recurring skin infection on the upper part of his groin below his umbilicus, right within the skin fold IV antifungals given, Diflucan 200 mg once IV blood cultures drawn #Anemia Patient's hemoglobin 7.7 On patient's previous visit on 05/24 his hemoglobin was 7.4, upon discharge of the visit on 05/29 his hemoglobin was 8.2 states patient has been receiving Eberlein injections #Hypertension Patient currently takes paroxetine, chlorthalidone, hydralazine, losartan, metoprolol tartrate, Aldactone at home. - Taking orthostatics, and currently holding medications due to EMSs report that patient's blood pressure was low #Diabetes mellitus Patient currently not on any medications. #Hyperlipidemia Patient currently takes Lipitor, 80 mg aspirin. Monitor vital signs Monitor CBC Monitor CMP Continue telemetry monitoring Labs and medication were reviewed. Continue with symptomatic treatment. Resume home medication. Monitor labs and vitals. DVT and GI prophylaxis. Further recommendations as per clinical course of the patient Dictation was produced using [employer] dictation software. please excuse any grammatical, word or spelling errors. The impression and plan of care has been dictated by , resident as directed. I have performed a history and physical examination and medical decision making of this patient, discussed the same with the dictator, and agree with the dictators assessment and plan as written, documented as a scribe. Based on total visit time, I have performed more than 50% of this visit. Dr. Kamlesh Rose MD FACP Past Medical History Past Medical History: Coronary Artery Disease (CAD), Diabetes Mellitus, Hyperlipidemia, Hypertension, Osteoarthritis (OA), Renal Disease History of Any Multi-Drug Resistant Organisms: None Reported Past Surgical History: No Surgical Hx Reported Past Psychological History: No Psychological Hx Reported Smoking Status: Former smoker Past Alcohol Use History: None Reported Past Drug Use History: None Reported Medications and Allergies Home Medications Medication Instructions Recorded Confirmed Type Ascorbic Acid [Vitamin C] 500 mg PO DAILY 05/24/24 06/06/24 History Aspirin EC [Ecotrin Low Dose] 81 mg PO DAILY 05/24/24 06/06/24 History Atorvastatin [Lipitor] 80 mg PO HS 05/24/24 06/06/24 History Clobetasol Propionate [Temovate 1 applic TOPICAL BID PRN 05/24/24 06/06/24 History 0.05% Cream] Doxazosin [Cardura] 4 mg PO BID 05/24/24 06/06/24 History Ferrous Sulfate [Iron (65 MG 325 mg PO DAILY 05/24/24 06/06/24 History Elemental)] Finasteride [Proscar] 5 mg PO DAILY 05/24/24 06/06/24 History Hydrocortisone Cream 1 applic TOPICAL BID PRN 05/24/24 06/06/24 History [Hydrocortisone 2.5% Cream] Levothyroxine Sodium [Synthroid] 50 mcg PO DAILY 05/24/24 06/06/24 History Magnesium Oxide [Mag-Ox] 400 mg PO DAILY 05/24/24 06/06/24 History Metoprolol Tartrate [Lopressor] 50 mg PO BID 05/24/24 06/06/24 History Mv-Min/Folic/K1/Lycopen/Lutein 1 tab PO DAILY 05/24/24 06/06/24 History [Centrum Silver Men Tablet] Nystatin 100,000Unit/gm Cream 1 applic TOPICAL BID PRN 05/24/24 06/06/24 History [Mycostatin Cream] Triamcinolone 0.1% Cream [Kenalog 1 applic TOPICAL BID PRN 05/24/24 06/06/24 H istory 0.1% Cream] Torsemide [Demadex] 40 mg PO DAILY 30 Days #60 tablet 05/29/24 06/06/24 Rx hydrALAZINE HCL [Apresoline] 50 mg PO TID 30 Days #90 tab 05/29/24 06/06/24 Rx Allergies Allergy/AdvReac Type Severity Reaction Status Date / Time No Known Allergies Allergy Verified 06/06/24 09:55 Physical Exam Vitals: Vital Signs Temp Pulse Resp BP Pulse Ox 06/06/24 07:43 51 L 18 111/57 98 06/06/24 06:55 48 L 16 114/82 99 06/06/24 05:05 46 L 16 115/62 98 06/06/24 04:01 98.5 F 48 L 16 123/53 98 Intake and Output 06/05/24 06/06/24 06/06/24 22:59 06:59 14:59 Other: Weight 72.575 kg Results CBC & Chem 7: 06/06/24 04:20 06/06/24 04:20 Labs: Abnormal Lab Results - Last 24 Hours (Table) 06/06/24 06/06/24 Range/Units 04:20 04:20 RBC 2.63 L (4.30-5.90) m/uL Hgb 7.7 L (13.0-17.5) gm/dL Hct 23.9 L (39.0-53.0) % Lymphocytes # 0.4 L (1.0-4.8) k/uL Sodium 131 L (137-145) mmol/L BUN 30 H (9-20) mg/dL Creatinine 2.66 H (0.66-1.25) mg/dL Glucose 166 H (74-99) mg/dL Calcium 7.7 L (8.4-10.2) mg/dL AST 67 H (17-59) U/L Alkaline Phosphatase 141 H (38-126) U/L Total Protein 6.1 L (6.3-8.2) g/dL Albumin 2.6 L (3.5-5.0) g/dL
[2024-06-06] MEDS: hydrALAZINE HCL 50 MG TAB PO SCH (14:12)
[2024-06-06] MEDS: DOXAZOSIN 4 MG TAB PO SCH (14:12)
--- NOTE | 2024-06-06 14:46 | P.NPCON ---
History of Present Illness - Reason for Consult end stage renal disease - History of Present Illness patient is an 84-year-old male with history of chronic kidney disease stage IV secondary to diabetic kidney disease, started hemodialysis during last hospitalization. Patient is currently dialyzing at [facility] on a Saturday vent is did Saturday schedule. He currently has a right IJ permacath. Patient is admitted with complaints of weakness and fever post dialysis. There is concern for underlying permacath related infection. No fever documented here patient has had fever on and off at home particularly worse after dialysis. Patient denies any discharge or pain at the site of the right IJ catheter. No history of nausea vomiting diarrhea. Past Medical History Past Medical History: Coronary Artery Disease (CAD), Diabetes Mellitus, Hyperlipidemia, Hypertension, Osteoarthritis (OA), Renal Disease Additional Past Medical History / Comment(s): ilsa GOMEZ new as of last week History of Any Multi-Drug Resistant Organisms: None Reported Past Surgical History: No Surgical Hx Reported Past Psychological History: No Psychological Hx Reported Smoking Status: Former smoker Past Alcohol Use History: None Reported Past Drug Use History: None Reported Medications and Allergies Home Medications Medication Instructions Recorded Confirmed Type Ascorbic Acid [Vitamin C] 500 mg PO DAILY 05/24/24 06/06/24 History Aspirin EC [Ecotrin Low Dose] 81 mg PO DAILY 05/24/24 06/06/24 History Atorvastatin [Lipitor] 80 mg PO HS 05/24/24 06/06/24 History Clobetasol Propionate [Temovate 1 applic TOPICAL BID PRN 05/24/24 06/06/24 History 0.05% Cream] Doxazosin [Cardura] 4 mg PO BID 05/24/24 06/06/24 History Ferrous Sulfate [Iron (65 MG 325 mg PO DAILY 05/24/24 06/06/24 History Elemental)] Finasteride [Proscar] 5 mg PO DAILY 05/24/24 06/06/24 History Hydrocortisone Cream 1 applic TOPICAL BID PRN 05/24/24 06/06/24 History [Hydrocortisone 2.5% Cream] Levothyroxine Sodium [Synthroid] 50 mcg PO DAILY 05/24/24 06/06/24 History Magnesium Oxide [Mag-Ox] 400 mg PO DAILY 05/24/24 06/06/24 History Metoprolol Tartrate [Lopressor] 50 mg PO BID 05/24/24 06/06/24 History Mv-Min/Folic/K1/Lycopen/Lutein 1 tab PO DAILY 05/24/24 06/06/24 History [Centrum Silver Men Tablet] Nystatin 100,000Unit/gm Cream 1 applic TOPICAL BID PRN 05/24/24 06/06/24 History [Mycostatin Cream] Triamcinolone 0.1% Cream [Kenalog 1 applic TOPICAL BID PRN 05/24/24 06/06/24 History 0.1% Cream] Torsemide [Demadex] 40 mg PO DAILY 30 Days #60 tablet 05/29/24 06/06/24 Rx hydrALAZINE HCL [Apresoline] 50 mg PO TID 30 Days #90 tab 05/29/24 06/06/24 Rx Allergies Allergy/AdvReac Type Severity Reaction Status Date / Time No Known Allergies Allergy Verified 06/06/24 09:55 Physical Exam Vitals: Vital Signs Temp Pulse Pulse Resp BP BP Pulse Ox 06/06/24 14:17 53 L 137/62 06/06/24 12:43 52 L 161/62 06/06/24 09:56 97.6 F 48 L 14 133/67 100 06/06/24 09:32 98.1 F 45 L 18 128/59 98 06/06/24 07:43 51 L 18 111/57 98 06/06/24 06:55 48 L 16 114/82 99 06/06/24 05:05 46 L 16 115/62 98 06/06/24 04:01 98.5 F 48 L 16 123/53 98 Intake and Output 06/05/24 06/06/24 06/06/24 22:59 06:59 14:59 Other: Weight 72.575 kg 72.575 kg patient is awake, comfortable, alert oriented 3. Examination of the heart S1 and S2 Examination of the lungs bilateral breath sounds are heard Abdomen is soft nontender Examination of lower extremities shows no significant edema. S[employer]IST exam grossly intact No drainage noted at the site of the dialysis catheter. Results - Lab Results Most recent lab results Calcium 7.7 mg/dL (8.4-10.2) L 06/06/24 04:20 06/06/24 04:20 06/06/24 04:20 Assessment and Plan Assessment: 1. End-stage renal disease maintained on hemodialysis on a Saturday schedule at [facility]. Patient was recently started on dialysis about 2 weeks ago after hospitalization for severe anemia and worsening renal function. History of stage IV CK D with previous creatinine around 3-3.5 mg/dL secondary to diabetic kidney disease. 2. History of fever rule out permacath related infection 3. Anemia of chronic disease 4. CK D mineral bone disorder Plan: check blood cultures Hemodialysis on 06/08/2024 Add Aranesp check phosphorus. Thank you for the consultation. We will continue to follow the patient with you during his hospitalization.
[2024-06-06] MEDS: IOPAMIDOL CONTRAST (ORAL USE) VIAL PO PRN (16:01)
[2024-06-06] MEDS: SODIUM CHLORIDE 0.9% 1,000 ML IV SCH (16:39)
[2024-06-06 17:20] LABS: Glucose,Whole Blood 116 mg/dL (70-110)
[2024-06-06] MEDS: FLUCONAZOLE IN NACL,ISO-OSM 200 MG in SALINE 1 100ML.BAG IVPB STA (17:20)
--- NOTE | 2024-06-06 18:04 | CT ---
EXAMINATION TYPE: CT abdomen pelvis wo con DATE OF EXAM: 06/06/2024 COMPARISON: None HISTORY: fever unknown source CT DLP: 631.8 mGycm Examination of the solid and hollow viscera is limited given the lack of contrast. FINDINGS: LUNG BASES: No evidence for nodule. No evidence for infiltrate. Small effusions are noted bilaterally . LIVER/GB: Small gallstones noted without cholecystitis. No space-occupying hepatic lesion. PANCREAS: No pancreatic mass identified. No inflammatory process seen. SPLEEN: No evidence for splenomegaly. No intrasplenic lesions seen. Splenic granulomas noted. ADRENALS: No adrenal nodules identified. No evidence for thickening. KIDNEYS: No evidence for renal mass. 1 cm calculus left renal pelvis without obstructive uropathy. Pe rinephric stranding seen. No hydronephrosis. BOWEL: Appendix has a normal appearance. No evidence of bowel obstruction. No inflammatory process. Lymph nodes: No evidence for adenopathy greater than 1 cm. Abdominal aorta: Atheromatous changes seen. No evidence for aneurysm. Genital organs: No significant abnormality. Other: No significant abnormality. IMPRESSION: Gallstones. 1 nonobstructing calculus left renal pelvis. 2. Gallstones.
[2024-06-06 19:00] LABS: Appearance,Urine Cloudy (Clear); Bacteria,Urine Rare /hpf; Bilirubin,Urine Negative (Negative); Blood,Urine Small (Negative); Color,Urine Yellow; Glucose,Urine (UA) Negative (Negative); Ketones,Urine Negative (Negative); Leukocyte Esterase,Urine Trace (Negative); Mucus,Urine Rare /hpf; Nitrite,Urine Negative (Negative); Protein,Urine Trace (Negative); RBC,Urine 39 /hpf (0-5); Specific Gravity,Urine 1.011 (1.001-1.035); Squamous Epithelial Cell,Urine <1 /hpf (0-4); Urobilinogen,Urine <2.0 mg/dL (<2.0); WBC,Urine 3 /hpf (0-5)
[2024-06-06] MEDS: ATORVASTATIN 80 MG TAB PO SCH (20:50)
[2024-06-06 21:34] LABS: Glucose,Whole Blood 120 mg/dL (70-110)
--- NOTE | 2024-06-06 22:38 | P.CONS ---
History of Present Illness - Reason for Consult Consult date: 06/06/24 Sepsis Requesting physician: Kamlesh Rose - Chief Complaint Weakness x few days - History of Present Illness Patient is a 84-year-old male with a past medical history significant for diabetes mellitus hypertension hyperlipidemia osteoarthritis coronary disease patient has been recently diagnosed with the renal failure with patient has got right subclavian permacatheter and apparently has been dialyzed for the patient was discharged last week patient presented to the outside facility for evaluation of generalized weakness for the past 2 to 3 days patient did have difficulty walking with a walker and did have a fall but no loss of consciousness and apparently the patient also having a fever patient denies having any headache or URI symptoms no chest pain or shortness with occasional cough not been complaining sputum no nausea no vomiting no abdominal pain and no diarrhea no urinary symptoms patient was evaluated at the outside facility with the patient did have initial workup including a negative chest x-ray and UA patient was subsequently transferred to [facility] for further workup on presentation to this facility patient has been afebrile patient was not tachycardic hypotensive or hypoxic and no need for supplemental oxygen patient did have a normal white count BUN/creatinine has been elevated patient was started on Rocephin infectious disease was consulted for further management of antibiotic therapy Review of Systems Positive point and negatives has been mentioned in the HPI, complete review of systems was performed and all other systems are negative Past Medical History Past Medical History: Coronary Artery Disease (CAD), Diabetes Mellitus, Hyperlipidemia, Hypertension, Osteoarthritis (OA), Renal Disease Additional Past Medical History / Comment(s): dylasis MWF new as of last week History of Any Multi-Drug Resistant Organisms: None Reported Past Surgical History: No Surgical Hx Reported Past Psychological History: No Psychological Hx Reported Smoking Status: Former smoker Past Alcohol Use History: None Reported Past Drug Use History: None Reported Medications and Allergies Home Medications Medication Instructions Recorded Confirmed Type Ascorbic Acid [Vitamin C] 500 mg PO DAILY 05/24/24 06/06/24 History Aspirin EC [Ecotrin Low Dose] 81 mg PO DAILY 05/24/24 06/06/24 History Atorvastatin [Lipitor] 80 mg PO HS 05/24/24 06/06/24 History Clobetasol Propionate [Temovate 1 applic TOPICAL BID PRN 05/24/24 06/06/24 History 0.05% Cream] Doxazosin [Cardura] 4 mg PO BID 05/24/24 06/06/24 History Ferrous Sulfate [Iron (65 MG 325 mg PO DAILY 05/24/24 06/06/24 History Elemental)] Finasteride [Proscar] 5 mg PO DAILY 05/24/24 06/06/24 History Hydrocortisone Cream 1 applic TOPICAL BID PRN 05/24/24 06/06/24 History [Hydrocortisone 2.5% Cream] Levothyroxine Sodium [Synthroid] 50 mcg PO DAILY 05/24/24 06/06/24 History Magnesium Oxide [Mag-Ox] 400 mg PO DAILY 05/24/24 06/06/24 History Metoprolol Tartrate [Lopressor] 50 mg PO BID 05/24/24 06/06/24 History Mv-Min/Folic/K1/Lycopen/Lutein 1 tab PO DAILY 05/24/24 06/06/24 History [Centrum Silver Men Tablet] Nystatin 100,000Unit/gm Cream 1 applic TOPICAL BID PRN 05/24/24 06/06/24 History [Mycostatin Cream] Triamcinolone 0.1% Cream [Kenalog 1 applic TOPICAL BID PRN 05/24/24 06/06/24 History 0.1% Cream] Torsemide [Demadex] 40 mg PO DAILY 30 Days #60 tablet 05/29/24 06/06/24 Rx hydrALAZINE HCL [Apresoline] 50 mg PO TID 30 Days #90 tab 05/29/24 06/06/24 Rx Allergies Allergy/AdvReac Type Severity Reaction Status Date / Time No Known Allergies Allergy Verified 06/06/24 09:55 Physical Exam Vitals: Vital Signs Temp Pulse Pulse Resp BP BP Pulse Ox 06/06/24 09:56 97.6 F 48 L 14 133/67 100 06/06/24 09:32 98.1 F 45 L 18 128/59 98 06/06/24 07:43 51 L 18 111/57 98 06/06/24 06:55 48 L 16 114/82 99 06/06/24 05:05 46 L 16 115/62 98 06/06/24 04:01 98.5 F 48 L 16 123/53 98 Intake and Output 06/05/24 06/06/24 06/06/24 22:59 06:59 14:59 Other: Weight 72.575 kg 72.575 kg GENERAL DESCRIPTION: Elderly male lying in bed, no distress. No tachypnea or accessory muscle of respiration use. HEENT: Shows Pallor , no scleral icterus. Oral mucous membrane is dry. No pharyngeal erythema or thrush NECK: Trachea central, no thyromegaly. LUNGS: Unlabored breathing. Clear to auscultation anteriorly. No wheeze or crackle. HEART: S1, S2, regular rate and rhythm. No loud murmur ABDOMEN: Soft, no tenderness , guarding or rigidity, no organomegaly EXTREMITIES: No edema of feet. SKIN: No rash, no masses palpable. NEUROLOGICAL: The patient is awake, alert, oriented x3, mood and affect normal. Results CBC & Chem 7: 06/07/24 03:14 06/07/24 03:14 Labs: Abnormal Lab Results - Last 24 Hours (Table) 06/06/24 06/06/24 Range/Units 04:20 04:20 RBC 2.63 L (4.30-5.90) m/uL Hgb 7.7 L (13.0-17.5) gm/dL Hct 23.9 L (39.0-53.0) % Lymphocytes # 0.4 L (1.0-4.8) k/uL Sodium 131 L (137-145) mmol/L BUN 30 H (9-20) mg/dL Creatinine 2.66 H (0.66-1.25) mg/dL Glucose 166 H (74-99) mg/dL Calcium 7.7 L (8.4-10.2) mg/dL AST 67 H (17-59) U/L Alkaline Phosphatase 141 H (38-126) U/L Total Protein 6.1 L (6.3-8.2) g/dL Albumin 2.6 L (3.5-5.0) g/dL Assessment and Plan (1) Fever Current Visit: Yes Status: Acute Code(s): R50.9 - FEVER, UNSPECIFIED SNOMED Code(s): 416951442 (2) Weakness Current Visit: Yes Status: Acute Code(s): R53.1 - WEAKNESS SNOMED Code(s): 67655466 Plan: 1patient presented to hospital with generalized weakness he did have a fall and also have apparently fever at home with initial workup has been negative including a negative UA chest x-ray has been negative evidence of any cellulitis abdominal soft on rectal examination with a question of viral syndrome versus related to the permacatheter 2we will check influenza and RSV nasopharyngeal swab 3blood culture has been obtained peripherally as well as from the permacatheter results will be followed and will need for the CT abdominal pelvis to be completed 4continue with Rocephin while waiting for the workup to be completed We will follow on clinical condition and cultures to further adjust medication if needed Thank you for this consultation we will follow the patient along with you Dictation was produced using [employer] dictation software. please excuse any grammatical, word or spelling errors. Time with Patient: Greater than 30
[2024-06-07 04:33] LABS: African American GFR (CKD) 14 (>60 ml/min/1.73 sqM); Anion Gap 6 mmol/L; Blood Urea Nitrogen 48 mg/dL (9-20); C Reactive Protein 6.7 mg/dL (<1.0); Calcium 7.7 mg/dL (8.4-10.2); Carbon Dioxide 25 mmol/L (22-30); Chloride 99 mmol/L (98-107); Glucose 80 mg/dL (74-99); Non-African American GFR(CKD) 12 (>60 ml/min/1.73 sqM); Potassium 4.3 mmol/L (3.5-5.1); Sodium 130 mmol/L (137-145)
[2024-06-07 05:12] LABS: Glucose,Whole Blood 86 mg/dL (70-110)
[2024-06-07] MEDS: ASCORBIC ACID 500 MG TAB PO SCH (08:22)
[2024-06-07] MEDS: FERROUS SULFATE 325 MG TAB PO SCH (08:22)
[2024-06-07] MEDS: MULTIVITAMINS, THERA 1 EACH TAB PO SCH (08:23)
[2024-06-07 10:04] LABS: Basophils # (A) 0.01 X 10*3/uL (0.00-0.10); Basophils % (A) 0.2 %; Eosinophils % (A) 1.6 %; HGB 7.1 g/dL (13.0-17.0); Lymphocytes # (A) 0.46 X 10*3/uL (0.90-5.00); Lymphocytes % (A) 7.1 %; MCH 28.4 pg (27.0-32.0); MCHC 30.9 g/dL (32.0-37.0); Mean Platelet Volume 9.7 FL (9.5-12.2); Monocytes # (A) 0.46 X 10*3/uL (0.20-1.00); Monocytes % (A) 7.1 %; NRBC Per 100 WBC 0 X 10*3/uL (0.00-0.01); Neutrophils # (A) 5.39 X 10*3/uL (1.80-7.70); Neutrophils % (A) 83.5 %; Platelet Count 230 X 10*3/uL (140-440); RDW 13.9 % (11.5-14.5); WBC 6.45 X 10*3/uL (4.50-10.00)
[2024-06-07 10:54] LABS: Erythrocyte Sedimentation Rate 42 mm/Hr (0-20)
[2024-06-07] MEDS: FLUCONAZOLE IN NACL,ISO-OSM 100 MG in SALINE 1 50ML.BAG IVPB SCH (11:01)
[2024-06-07 12:30] LABS: Glucose,Whole Blood 137 mg/dL (70-110)
--- NOTE | 2024-06-07 14:37 | P.PN ---
Subjective patient is seen for follow-up for end-stage renal disease. No significant complaints of fever or chills today. No nausea or vomiting noted. Blood cultures are pending, negative thus far. patient is scheduled for hemodialysis in a.m. Objective - Vital Signs Vital signs: Vital Signs Temp 98.2 F 06/07/24 07:00 Pulse 81 06/07/24 07:00 Resp 16 06/07/24 07:00 BP 119/61 06/07/24 07:00 Pulse Ox 95 06/07/24 07:00 FiO2 Intake & Output 06/06/24 06/07/24 06/07/24 18:59 06:59 18:59 Intake Total 600 480 118 Balance 600 480 118 Weight 72.575 kg Intake: Oral 600 480 118 Other: Voiding Method Toilet Urinal # Voids 1 1 - Exam patient is awake, comfortable, alert oriented 3. Examination of the heart S1 and S2 Examination of the lungs bilateral breath sounds are heard Abdomen is soft nontender Examination of lower extremities shows no significant edema. [employer] CONSULTANT exam grossly intact No drainage noted at the site of the dialysis catheter. - Labs CBC & Chem 7: 06/07/24 03:14 06/07/24 03:14 Labs: Abnormal Lab Results - Last 24 Hours (Table) 06/06/24 06/06/24 06/06/24 Range/Units 17:13 18:14 21:33 RBC (4.40-5.60) X 10*6/uL Hgb (13.0-17.0) g/dL Hct (39.6-50.0) % MCHC (32.0-37.0) g/dL Lymphocytes # (0.90-5.00) X 10*3/uL ESR (0-20) mm/Hr Sodium (137-145) mmol/L BUN (9-20) mg/dL Creatinine (0.66-1.25) mg/dL POC Glucose (mg/dL) 116 H 120 H (70-110) mg/dL Calcium (8.4-10.2) mg/dL C-Reactive Protein (<1.0) mg/dL Urine Protein Trace H (Negative) Urine Blood Small H (Negative) Ur Leukocyte Esterase Trace H (Negative) Urine RBC 39 H (0-5) /hpf Urine Bacteria Rare H (None) /hpf Urine Mucus Rare H (None) /hpf 07/28/24 07/28/24 07/28/24 Range/Units 03:14 03:14 12:28 RBC 2.50 L (4.40-5.60) X 10*6/uL Hgb 7.1 L (13.0-17.0) g/dL Hct 23.0 L (39.6-50.0) % MCHC 30.9 L (32.0-37.0) g/dL Lymphocytes # 0.46 L (0.90-5.00) X 10*3/uL ESR 42 H (0-20) mm/Hr Sodium 130 L (137-145) mmol/L BUN 48 H (9-20) mg/dL Creatinine 4.18 H (0.66-1.25) mg/dL POC Glucose (mg/dL) 137 H (70-110) mg/dL Calcium 7.7 L (8.4-10.2) mg/dL C-Reactive Protein 6.7 H (<1.0) mg/dL Urine Protein (Negative) Urine Blood (Negative) Ur Leukocyte Esterase (Negative) Urine RBC (0-5) /hpf Urine Bacteria (None) /hpf Urine Mucus (None) /hpf Microbiology - Last 24 Hours (Table) 06/06/24 04:10 Blood Culture - Preliminary Blood 06/06/24 04:25 Blood Culture - Preliminary Blood Assessment and Plan Assessment: 1. End-stage renal disease maintained on hemodialysis on a Saturday schedule at [facility]. Patient was recently started on dialysis about 2 weeks ago after hospitalization for severe anemia and worsening renal function. History of stage IV CK D with previous creatinine around 3-3.5 mg/dL secondary to diabetic kidney disease. 2. History of fever rule out permacath related infection 3. Anemia of chronic disease 4. CK D mineral bone disorder Plan: hemodialysis in a.m. Follow-up on blood cultures add Aranesp Continue antibiotics
--- NOTE | 2024-06-07 16:54 | P.PN ---
Subjective Progress Note Date: 06/07/24 Principal diagnosis: Reason for follow-up is fever Patient is a 84-year-old male with a past medical history significant for diabetes mellitus hypertension hyperlipidemia osteoarthritis coronary disease patient has been recently diagnosed with the renal failure with patient has got right subclavian permacatheter patient has been brought to the hospital concerning for generalized weakness and fever with initial workup negative. On today's evaluation that is 06/07/2024,the patient remains to be afebrile, patient is on room air not requiring supplemental oxygen and denies any shortness of breath no chest pain or cough.Patient denies having any nausea or vomiting, no abdominal pain and no diarrhea has been reported. Patient white count is 6.45 creatinine is 4.18 influenza COVID testing was negative blood cultures are pending abdominal pelvis CT shows some gallstones nonobstructive calculus left renal pelvis Objective - Vital Signs Vital signs: Vital Signs Temp 98.3 F 06/07/24 14:52 Pulse 50 L 06/07/24 14:52 Resp 15 06/07/24 14:52 BP 116/52 06/07/24 14:52 Pulse Ox 96 06/07/24 14:52 FiO2 Intake & Output 06/06/24 06/07/24 06/07/24 18:59 06:59 18:59 Intake Total 600 480 118 Balance 600 480 118 Weight 72.575 kg Intake: Oral 600 480 118 Other: Voiding Method Toilet Urinal # Voids 1 1 2 - Exam GENERAL DESCRIPTION: An elderly male lying in bed in no distress RESPIRATORY SYSTEM: Unlabored breathing , decreased breath sounds at bases HEART: S1 S2 regular rate and rhythm , ABDOMEN: Soft , no tenderness EXTREMITIES: No edema feet - Labs CBC & Chem 7: 06/07/24 03:14 06/07/24 03:14 Labs: Abnormal Lab Results - Last 24 Hours (Table) 06/06/24 06/06/24 06/06/24 Range/Units 17:13 18:14 21:33 RBC (4.40-5.60) X 10*6/uL Hgb (13.0-17.0) g/dL Hct (39.6-50.0) % MCHC (32.0-37.0) g/dL Lymphocytes # (0.90-5.00) X 10*3/uL ESR (0-20) mm/Hr Sodium (137-145) mmol/L BUN (9-20) mg/dL Creatinine (0.66-1.25) mg/dL POC Glucose (mg/dL) 116 H 120 H (70-110) mg/dL Calcium (8.4-10.2) mg/dL C-Reactive Protein (<1.0) mg/dL Urine Protein Trace H (Negative) Urine Blood Small H (Negative) Ur Leukocyte Esterase Trace H (Negative) Urine RBC 39 H (0-5) /hpf Urine Bacteria Rare H (None) /hpf Urine Mucus Rare H (None) /hpf 06/07/24 06/07/24 06/07/24 Range/Units 03:14 03:14 12:28 RBC 2.50 L (4.40-5.60) X 10*6/uL Hgb 7.1 L (13.0-17.0) g/dL Hct 23.0 L (39.6-50.0) % MCHC 30.9 L (32.0-37.0) g/dL Lymphocytes # 0.46 L (0.90-5.00) X 10*3/uL ESR 42 H (0-20) mm/Hr Sodium 130 L (137-145) mmol/L BUN 48 H (9-20) mg/dL Creatinine 4.18 H (0.66-1.25) mg/dL POC Glucose (mg/dL) 137 H (70-110) mg/dL Calcium 7.7 L (8.4-10.2) mg/dL C-Reactive Protein 6.7 H (<1.0) mg/dL Urine Protein (Negative) Urine Blood (Negative) Ur Leukocyte Esterase (Negative) Urine RBC (0-5) /hpf Urine Bacteria (None) /hpf Urine Mucus (None) /hpf Microbiology - Last 24 Hours (Table) 06/06/24 04:10 Blood Culture - Preliminary Blood 06/06/24 04:25 Blood Culture - Preliminary Blood Assessment and Plan (1) Fever Current Visit: Yes Status: Acute Code(s): R50.9 - FEVER, UNSPECIFIED SNOMED Code(s): 343983932 (2) Weakness Current Visit: Yes Status: Acute Code(s): R53.1 - WEAKNESS SNOMED Code(s): 84579136 Plan: 1patient presented to hospital with generalized weakness he did have a fall and also have apparently fever at home with initial workup has been negative including a negative UA chest x-ray has been negative evidence of any cellulitis abdominal soft on rectal examination with a question of viral syndrome versus related to the permacatheter 2influenza and RSV nasopharyngeal PCR came back negative CT abdominal pelvis did not show any acute and abdominal pathology 3blood culture has been obtained peripherally as well as from the permacatheter has been obtained and results are currently pending 4patient continue with Rocephin while waiting for the workup to be completed Dictation was produced using [employer] dictation software. please excuse any grammatical, word or spelling errors.
[2024-06-07 17:26] LABS: Glucose,Whole Blood 139 mg/dL (70-110)
[2024-06-07] MEDS: DARBEPOETIN ALFA 60 MCG/0.3 ML SYRINGE SQ SCH (18:41)
[2024-06-07 20:49] LABS: Glucose,Whole Blood 168 mg/dL (70-110)
[2024-06-08 03:26] LABS: Basophils % (A) 0 %; Eosinophils # (A) 0.1 k/uL (0-0.7); Eosinophils % (A) 2 %; HCT 24.1 % (39.0-53.0); HGB 7.6 gm/dL (13.0-17.5); Hypochromasia Moderate; Lymphocytes # (A) 0.6 k/uL (1.0-4.8); Lymphocytes % (A) 10 %; MCH 29.1 pg (25.0-35.0); MCHC 31.5 g/dL (31.0-37.0); MCV 92.4 fL (80.0-100.0); Mean Platelet Volume 7.9; Monocytes # (A) 0.6 k/uL (0-1.0); Monocytes % (A) 10 %; Neutrophils # (A) 4.7 k/uL (1.3-7.7); Neutrophils % (A) 77 %; Platelet Count 263 k/uL (150-450); RBC 2.61 m/uL (4.30-5.90); RDW 14.3 % (11.5-15.5); WBC 6.1 k/uL (3.8-10.6)
[2024-06-08 03:33] LABS: African American GFR (CKD) 11 (>60 ml/min/1.73 sqM); Anion Gap 6 mmol/L; Blood Urea Nitrogen 63 mg/dL (9-20); Calcium 7.9 mg/dL (8.4-10.2); Carbon Dioxide 24 mmol/L (22-30); Chloride 102 mmol/L (98-107); Glucose 85 mg/dL (74-99); Non-African American GFR(CKD) 10 (>60 ml/min/1.73 sqM); Potassium 4.5 mmol/L (3.5-5.1); Sodium 132 mmol/L (137-145)
--- NOTE | 2024-06-08 04:39 | PN ---
PROGRESS NOTE DATE OF SERVICE: 06/07/2024 SUBJECTIVE: This 84-year-old gentleman was admitted with fall and other medical issues, was suspected to have sepsis. The patient is on empiric antibiotics. The CAT scan showed only left renal pelvis calculus as well as gallstones. No chest pain. No palpitation. PHYSICAL EXAMINATION: VITAL SIGNS: Pulse is 67, blood pressure 120/62, respirations 16. CHEST: Clear to auscultation. CARDIOVASCULAR: S1, S2. ABDOMEN: Soft. NERVOUS SYSTEM: No focal deficits. LABORATORY DATA: Hemoglobin 7.1. Creatinine is 4.18. ASSESSMENT: 1. Possible sepsis of undetermined origin, on empiric antibiotics. 2. Chronic kidney disease, on hemodialysis. 3. Mechanical fall. 4. Fungal infection of the groin with failure of outpatient treatment. 5. Anemia. 6. Hypertension. 7. Diabetes mellitus, type 2. 8. Hyperlipidemia. 9. Hyponatremia. 10.Nonobstructing left renal pelvis calculus and gallstones. RECOMMENDATIONS: I recommend to continue current management and continue symptomatic treatment. Continue empiric antibiotics. Currently, cultures are negative so far. We will compare with cultures from the blood cultures and as well as the catheter cultures, and repeat labs will be ordered. Closely follow with multiple consultants. Further recommendations to follow. MMODL / IJN: [id number] /
[2024-06-08 06:11] LABS: Glucose,Whole Blood 93 mg/dL (70-110)
[2024-06-08 11:58] LABS: Glucose,Whole Blood 121 mg/dL (70-110)
--- NOTE | 2024-06-08 14:42 | P.PN ---
Subjective patient is seen for follow-up for end-stage renal disease. patient is complaining of loose bowel movements. Orthostatic drop in blood pressure noted. Blood cultures Remain negative. patient is scheduled for hemodialysis today Objective - Vital Signs Vital signs: Vital Signs Temp 97.9 F 06/08/24 07:14 Pulse 52 L 06/08/24 07:14 Resp 18 06/08/24 07:14 BP 153/64 06/08/24 07:14 Pulse Ox 98 06/08/24 09:55 FiO2 Intake & Output 06/07/24 06/08/24 06/08/24 18:59 06:59 18:59 Intake Total 236 Balance 236 Intake: Oral 236 Other: # Voids 2 2 1 # Bowel Movements 1 1 - Exam patient is awake, comfortable, alert oriented 3. Examination of the heart S1 and S2 Examination of the lungs bilateral breath sounds are heard Abdomen is soft nontender Examination of lower extremities shows no significant edema. HOME AID exam grossly intact No drainage noted at the site of the dialysis catheter. - Labs CBC & Chem 7: 06/08/24 02:38 06/08/24 02:38 Labs: Abnormal Lab Results - Last 24 Hours (Table) 06/07/24 06/07/24 06/08/24 Range/Units 17:24 20:47 02:38 RBC 2.61 L (4.30-5.90) m/uL Hgb 7.6 L (13.0-17.5) gm/dL Hct 24.1 L (39.0-53.0) % Lymphocytes # 0.6 L (1.0-4.8) k/uL Sodium (137-145) mmol/L BUN (9-20) mg/dL Creatinine (0.66-1.25) mg/dL POC Glucose (mg/dL) 139 H 168 H (70-110) mg/dL Calcium (8.4-10.2) mg/dL 06/08/24 06/08/24 Range/Units 02:38 11:57 RBC (4.30-5.90) m/uL Hgb (13.0-17.5) gm/dL Hct (39.0-53.0) % Lymphocytes # (1.0-4.8) k/uL Sodium 132 L (137-145) mmol/L BUN 63 H (9-20) mg/dL Creatinine 5.09 H (0.66-1.25) mg/dL POC Glucose (mg/dL) 121 H (70-110) mg/dL Calcium 7.9 L (8.4-10.2) mg/dL Microbiology - Last 24 Hours (Table) 06/06/24 04:10 Blood Culture - Preliminary Blood 06/06/24 04:25 Blood Culture - Preliminary Blood 06/06/24 14:25 Blood Culture - Preliminary Blood 06/06/24 13:17 Blood Culture - Preliminary Blood 06/06/24 18:14 Urine Culture - Final Urine,Clean Catch Assessment and Plan Assessment: 1. End-stage renal disease maintained on hemodialysis on a Saturday schedule at [facility]. Patient was recently started on dialysis about 2 we eks ago after hospitalization for severe anemia and worsening renal function. History of stage IV CK D with previous creatinine around 3-3.5 mg/dL secondary to diabetic kidney disease. 2. History of fever rule out permacath related infection 3. Anemia of chronic disease 4. CK D mineral bone disorder Plan: hemodialysis today with no significant UF. Follow-up on blood cultures
[2024-06-08 16:57] LABS: Glucose,Whole Blood 99 mg/dL (70-110)
[2024-06-08] MEDS: MIDODRINE 5 MG TAB PO SCH (18:31)
[2024-06-08 21:00] LABS: Glucose,Whole Blood 127 mg/dL (70-110)
--- NOTE | 2024-06-08 22:11 | PN ---
PROGRESS NOTE DATE OF SERVICE: 06/08/2024 SUBJECTIVE: This is an 84-year-old gentleman, who was admitted with multiple medical concerns. He complains of tiredness. The possibility of sepsis is being considered, but however, the cultures are negative so far. PAST MEDICAL HISTORY: Reviewed. REVIEW OF SYSTEMS: A 14-point review is negative except as mentioned earlier. CURRENT MEDICATIONS: Reviewed include Rocephin and rest of medications noted. PHYSICAL EXAMINATION: VITAL SIGNS: Pulse is 49, blood pressure 148/62, orthostatic changes present, respirations 18. CHEST: A few scattered rhonchi and crackles. ABDOMEN: Soft. NERVOUS SYSTEM: Nonfocal. LABORATORY DATA: Hemoglobin is 7.6. ASSESSMENT: 1. Possible sepsis of undetermined etiology, on empiric antibiotics. Cultures negative so far. 2. Anemia. 3. Orthostatic hypotension. 4. Chronic kidney disease, on hemodialysis. 5. Mechanical fall. 6. Fungal infection of the groin with failure of outpatient treatment. 7. Anemia. 8. Hypertension. 9. Degenerative joint disease. 10.Hyperlipidemia. 11.Hyponatremia. 12.Nonobstructing left renal pelvis calculus and gallstones. RECOMMENDATIONS AND DISCUSSION: Recommend to continue current management and continue symptomatic treatment. Continue with empiric antibiotics. I would recommend 1 unit of transfusion as well as midodrine and continue to monitor. Add midodrine. Guarded prognosis because of multiple complex medical issues. Further recommendations to follow. See orders for further details. MMODL / IJN: [id number] /
--- NOTE | 2024-06-08 22:13 | P.PN ---
Subjective Progress Note Date: 06/08/24 Principal diagnosis: Reason for follow-up is fever Patient is a 84-year-old male with a past medical history significant for diabetes mellitus hypertension hyperlipidemia osteoarthritis coronary disease patient has been recently diagnosed with the renal failure with patient has got right subclavian permacatheter patient has been brought to the hospital concerning for generalized weakness and fever with initial workup negative. On today's evaluation that is 06/08/2024, the patient continues to be afebrile, the patient is on room air and breathing comfortably, the Pt denies having any chest pain or cough, the patient denies having any abdominal pain no vomiting or any diarrhea has been reported by the nursing staff. Mention feeling slightly better. The patient white count 6.1, creatinine 5.09 continues to be negative Objective - Vital Signs Vital signs: Vital Signs Temp 97.9 F 06/08/24 07:14 Pulse 52 L 06/08/24 07:14 Resp 18 06/08/24 07:14 BP 153/64 06/08/24 07:14 Pulse Ox 98 06/08/24 09:55 FiO2 Intake & Output 06/07/24 06/08/24 06/08/24 18:59 06:59 18:59 Intake Total 236 Balance 236 Intake: Oral 236 Other: # Voids 2 2 1 # Bowel Movements 1 1 - Exam GENERAL DESCRIPTION: An elderly male lying in bed in no distress RESPIRATORY SYSTEM: Unlabored breathing , decreased breath sounds at bases HEART: S1 S2 regular rate and rhythm , ABDOMEN: Soft , no tenderness EXTREMITIES: No edema feet - Labs CBC & Chem 7: 06/08/24 02:38 06/08/24 02:38 Labs: Abnormal Lab Results - Last 24 Hours (Table) 06/07/24 06/07/24 06/07/24 Range/Units 03:14 12:28 17:24 RBC (4.30-5.90) m/uL Hgb (13.0-17.5) gm/dL Hct (39.0-53.0) % Lymphocytes # (1.0-4.8) k/uL ESR 42 H (0-20) mm/Hr Sodium (137-145) mmol/L BUN (9-20) mg/dL Creatinine (0.66-1.25) mg/dL POC Glucose (mg/dL) 137 H 139 H (70-110) mg/dL Calcium (8.4-10.2) mg/dL 06/07/24 06/08/24 06/08/24 Range/Units 20:47 02:38 02:38 RBC 2.61 L (4.30-5.90) m/uL Hgb 7.6 L (13.0-17.5) gm/dL Hct 24.1 L (39.0-53.0) % Lymphocytes # 0.6 L (1.0-4.8) k/uL ESR (0-20) mm/Hr Sodium 132 L (137-145) mmol/L BUN 63 H (9-20) mg/dL Creatinine 5.09 H (0.66-1.25) mg/dL POC Glucose (mg/dL) 168 H (70-110) mg/dL Calcium 7.9 L (8.4-10.2) mg/dL Microbiology - Last 24 Hours (Table) 06/06/24 14:25 Blood Culture - Preliminary Blood 06/06/24 13:17 Blood Culture - Preliminary Blood 06/06/24 18:14 Urine Culture - Final Urine,Clean Catch 06/06/24 04:10 Blood Culture - Preliminary Blood 06/06/24 04:25 Blood Culture - Preliminary Blood Assessment and Plan (1) Fever Current Visit: Yes Status: Acute Code(s): R50.9 - FEVER, UNSPECIFIED SNOMED Code(s): 268714017 (2) Weakness Current Visit: Yes Status: Acute Code(s): R53.1 - WEAKNESS SNOMED Code(s): 24485043 Plan: 1patient presented to hospital with generalized weakness he did have a fall and also have apparently fever at home with initial workup has been negative including a negative UA chest x-ray has been negative evidence of any cellulitis abdominal soft on rectal examination with a question of viral syndrome versus related to the permacatheter 2influenza and RSV nasopharyngeal PCR came back negative CT abdominal pelvis did not show any acute and abdominal pathology 3blood culture has been obtained peripherally as well as from the permacatheter has been obtained and results are currently pending 4patient did have resolution of his fever has seemed to be feeling better, continue with Rocephin while waiting for the culture to finalize Dictation was produced using [employer] software. please excuse any grammatical, word or spelling errors. Time with Patient: Less than 30
[2024-06-09] MEDS: ACETAMINOPHEN TAB 325 MG TAB PO PRN (00:42)
[2024-06-09 06:20] LABS: Glucose,Whole Blood 182 mg/dL (70-110)
[2024-06-09 08:45] LABS: Basophils # (A) 0.01 X 10*3/uL (0.00-0.10); Basophils % (A) 0.2 %; Eosinophils # (A) 0.04 X 10*3/uL (0.04-0.35); Eosinophils % (A) 0.6 %; HCT 24.7 % (39.6-50.0); HGB 7.9 g/dL (13.0-17.0); Lymphocytes # (A) 0.37 X 10*3/uL (0.90-5.00); Lymphocytes % (A) 5.6 %; MCH 28.5 pg (27.0-32.0); MCV 89.2 FL (80.0-97.0); Mean Platelet Volume 9.6 FL (9.5-12.2); Monocytes # (A) 0.42 X 10*3/uL (0.20-1.00); Monocytes % (A) 6.3 %; NRBC Per 100 WBC 0 X 10*3/uL (0.00-0.01); Neutrophils # (A) 5.77 X 10*3/uL (1.80-7.70); Platelet Count 244 X 10*3/uL (140-440); RBC 2.77 X 10*6/uL (4.40-5.60); RDW 14.7 % (11.5-14.5); WBC 6.63 X 10*3/uL (4.50-10.00)
[2024-06-09 09:04] LABS: BUN/Creat Ratio 8.71 Ratio (12.00-20.00); Blood Urea Nitrogen 24.4 mg/dL (9.0-27.0); Chloride 100 mmol/L (96-109); Glucose 96 mg/dL (70-110); Potassium 3.8 mmol/L (3.5-5.5); Sodium 136 mmol/L (135-145)
[2024-06-09 09:05] LABS: ALT 36 U/L (10-49); AST 45 U/L (14-35); Albumin 2.5 g/dL (3.8-4.9); Albumin/Globulin Ratio 0.78 Ratio (1.60-3.17); Alkaline Phosphatase 145 U/L (41-126); Calcium 7.6 mg/dL (8.7-10.3); Carbon Dioxide 27.3 mmol/L (21.6-31.8); Globulin 3.2 g/dL (1.6-3.3); Total Bilirubin 0.3 mg/dL (0.3-1.2); Total Protein 5.7 g/dL (6.2-8.2)
--- NOTE | 2024-06-09 13:41 | P.PN ---
Subjective patient is seen for follow-up for end-stage renal disease. tolerated hemodialysis well yesterday. Blood cultures remain negative. stool for occult blood is positive. Hemoglobin is 7.9 Objective - Vital Signs Vital signs: Vital Signs Temp 98.1 F 06/09/24 07:01 Pulse 45 L 06/09/24 07:01 Resp 17 06/09/24 07:01 BP 170/57 06/09/24 07:01 Pulse Ox 94 L 06/09/24 07:01 FiO2 Intake & Output 06/08/24 06/09/24 06/09/24 18:59 06:59 18:59 Intake Total 784 Output Total 500 Balance 284 Intake: Blood Product 284 Rc Pheresis As-3 Unit 284 [id number] Hemodialysis 500 Output: Hemodialysis 500 Hemodialysis Net Amount 0 Other: # Voids 2 2 1 # Bowel Movements 1 1 - Exam patient is awake, comfortable, alert oriented 3. Examination of the heart S1 and S2 Examination of the lungs bilateral breath sounds are heard Abdomen is soft nontender Examination of lower extremities shows no significant edema. [employer] exam grossly intact No drainage noted at the site of the dialysis catheter. - Labs CBC & Chem 7: 06/09/24 03:00 06/09/24 03:00 Labs: Abnormal Lab Results - Last 24 Hours (Table) 06/08/24 06/08/24 06/09/24 Range/Units 14:50 20:59 03:00 RBC 2.77 L (4.40-5.60) X 10*6/uL Hgb 7.9 L (13.0-17.0) g/dL Hct 24.7 L (39.6-50.0) % RDW 14.7 H (11.5-14.5) % Lymphocytes # 0.37 L (0.90-5.00) X 10*3/uL Creatinine (0.6-1.5) mg/dL Est GFR (CKD-EPI) (>=60) BUN/Creatinine Ratio (12.00-20.00) Ratio POC Glucose (mg/dL) 127 H (70-110) mg/dL Calcium (8.7-10.3) mg/dL AST (14-35) U/L Alkaline Phosphatase (41-126) U/L Total Protein (6.2-8.2) g/dL Albumin (3.8-4.9) g/dL Albumin/Globulin Ratio (1.60-3.17) Ratio Crossmatch See Detail 06/09/24 06/09/24 Range/Units 03:00 06:19 RBC (4.40-5.60) X 10*6/uL Hgb (13.0-17.0) g/dL Hct (39.6-50.0) % RDW (11.5-14.5) % Lymphocytes # (0.90-5.00) X 10*3/uL Creatinine 2.8 H (0.6-1.5) mg/dL Est GFR (CKD-EPI) 22 L (>=60) BUN/Creatinine Ratio 8.71 L (12.00-20.00) Ratio POC Glucose (mg/dL) 182 H (70-110) mg/dL Calcium 7.6 L (8.7-10.3) mg/dL AST 45 H (14-35) U/L Alkaline Phosphatase 145 H (41-126) U/L Total Protein 5.7 L (6.2-8.2) g/dL Albumin 2.5 L (3.8-4.9) g/dL Albumin/Globulin Ratio 0.78 L (1.60-3.17) Ratio Crossmatch Microbiology - Last 24 Hours (Table) 06/06/24 04:10 Blood Culture - Preliminary Blood 06/06/24 04:25 Blood Culture - Preliminary Blood 06/06/24 14:25 Blood Culture - Preliminary Blood 06/06/24 13:17 Blood Culture - Preliminary Blood Assessment and Plan Assessment: 1. End-stage renal disease maintained on hemodialysis on a Saturday schedule at [facility]. Patient was recently started on dialysis about 2 weeks ago after hospitalization for severe anemia and worsening renal function. History of stage IV CK D with previous creatinine around 3-3.5 mg/dL secondary to diabetic kidney disease. 2. History of fever rule out permacath related infection 3. Anemia of chronic disease 4. CK D mineral bone disorder 5. GI bleed, status post packed RBCs transfusion Plan: hemodialysis in a.m. Follow-up on blood cultures GI workup
--- NOTE | 2024-06-09 14:17 | PN ---
PROGRESS NOTE DATE OF SERVICE: 06/09/2024 SUBJECTIVE: This is an 84-year-old gentleman with a past medical history of multiple medical problems, was admitted with multiple symptomatology. Sepsis suspected. The patient is on empiric antibiotics, however, the cultures are negative so far. The patient also has some melenic stools and even the patient is taking iron, stool OB is positive. The patient is receiving hemodialysis. PAST MEDICAL HISTORY: Reviewed. REVIEW OF SYSTEMS: A 14-point review is negative except as mentioned earlier. CURRENT MEDICATIONS: Reviewed include vitamin C, dose and rest of medications noted. PHYSICAL EXAMINATION: VITAL SIGNS: Pulse is 46, blood pressure 190/68, respirations 17, and pulse is 60. HEENT: Conjunctivae normal. NECK: No jugular venous distention. RESPIRATIONS: Diminished at the bases, scattered rhonchi. ABDOMEN: Soft. NERVOUS SYSTEM: Nonfocal. LABORATORY DATA: Reviewed. ASSESSMENT: 1. Possible sepsis of undetermined etiology, on empiric antibiotics. Cultures negative so far. 2. Anemia, rule out acute GI bleed with occult blood positive. 3. Orthostatic hypotension. 4. Chronic kidney disease, on hemodialysis. 5. Mechanical fall. 6. Fungal infection on the groin with failure of outpatient treatment. 7. Anemia. 8. Hypertension. 9. DJD. 10.Hyperlipidemia. 11.Hyponatremia. 12.Nonobstructing left renal pelvis calculus with gallstones. 13.Multiple complex medical issues. RECOMMENDATIONS AND DISCUSSION: This 84-year-old gentleman presented with multiple complex medical issues, we will monitor the patient closely as mentioned earlier. Cultures are negative, however, the patient has melenic stools and borderline hemoglobin. I would recommend Gastroenterology consultation, possible endoscopes. The patient had anemia. The patient received 1 unit of hemoglobin, still the hemoglobin is only 7.9. I would stop vitamin C and recommended to hold aspirin also before this time and prognosis is guarded. Further recommendations to follow. I would also recommend coagulation parameters also. MMODL / IJN: [id number] /
[2024-06-09 17:29] LABS: Glucose,Whole Blood 115 mg/dL (70-110)
[2024-06-09 20:16] LABS: Glucose,Whole Blood 126 mg/dL (70-110)
[2024-06-10 05:50] LABS: Glucose,Whole Blood 90 mg/dL (70-110)
--- NOTE | 2024-06-10 08:15 | P.PN ---
Subjective Progress Note Date: 06/09/24 Principal diagnosis: Reason for follow-up is fever Patient is a 84-year-old male with a past medical history significant for diabetes mellitus hypertension hyperlipidemia osteoarthritis coronary disease patient has been recently diagnosed with the renal failure with patient has got right subclavian permacatheter patient has been brought to the hospital concerning for generalized weakness and fever with initial workup negative. On today's evaluation that is 06/09/2024, Patient is afebrile patient is currently on room air patient is not significantly distressed seem to be sleepy did not answer any question no vomiting diarrhea or any other changes reported. Patient white count 6.63, creatinine 0.8 blood and urine culture has been negative so far Objective - Vital Signs Vital signs: Vital Signs Temp 98.1 F 06/09/24 07:01 Pulse 45 L 06/09/24 07:01 Resp 17 06/09/24 07:01 BP 170/57 06/09/24 07:01 Pulse Ox 94 L 06/09/24 07:01 FiO2 Intake & Output 06/08/24 06/09/24 06/09/24 18:59 06:59 18:59 Intake Total 784 Output Total 500 Balance 284 Intake: Blood Product 284 Rc Pheresis As-3 Unit 284 [id number] Hemodialysis 500 Output: Hemodialysis 500 Hemodialysis Net Amount 0 Other: # Voids 2 2 1 # Bowel Movements 1 1 - Exam GENERAL DESCRIPTION: An elderly male lying in bed in no distress RESPIRATORY SYSTEM: Unlabored breathing , decreased breath sounds at bases HEART: S1 S2 regular rate and rhythm , ABDOMEN: Soft , no tenderness EXTREMITIES: No edema feet - Labs CBC & Chem 7: 06/09/24 03:00 06/09/24 03:00 Labs: Abnormal Lab Results - Last 24 Hours (Table) 06/08/24 06/08/24 06/08/24 Range/Units 11:57 14:50 20:59 RBC (4.40-5.60) X 10*6/uL Hgb (13.0-17.0) g/dL Hct (39.6-50.0) % RDW (11.5-14.5) % Lymphocytes # (0.90-5.00) X 10*3/uL Creatinine (0.6-1.5) mg/dL Est GFR (CKD-EPI) (>=60) BUN/Creatinine Ratio (12.00-20.00) Ratio POC Glucose (mg/dL) 121 H 127 H (70-110) mg/dL Calcium (8.7-10.3) mg/dL AST (14-35) U/L Alkaline Phosphatase (41-126) U/L Total Protein (6.2-8.2) g/dL Albumin (3.8-4.9) g/dL Albumin/Globulin Ratio (1.60-3.17) Ratio Crossmatch See Detail 06/09/24 06/09/24 06/09/24 Range/Units 03:00 03:00 06:19 RBC 2.77 L (4.40-5.60) X 10*6/uL Hgb 7.9 L (13.0-17.0) g/dL Hct 24.7 L (39.6-50.0) % RDW 14.7 H (11.5-14.5) % Lymphocytes # 0.37 L (0.90-5.00) X 10*3/uL Creatinine 2.8 H (0.6-1.5) mg/dL Est GFR (CKD-EPI) 22 L (>=60) BUN/Creatinine Ratio 8.71 L (12.00-20.00) Ratio POC Glucose (mg/dL) 182 H (70-110) mg/dL Calcium 7.6 L (8.7-10.3) mg/dL AST 45 H (14-35) U/L Alkaline Phosphatase 145 H (41-126) U/L Total Protein 5.7 L (6.2-8.2) g/dL Albumin 2.5 L (3.8-4.9) g/dL Albumin/Globulin Ratio 0.78 L (1.60-3.17) Ratio Crossmatch Microbiology - Last 24 Hours (Table) 06/06/24 14:25 Blood Culture - Preliminary Blood 06/06/24 13:17 Blood Culture - Preliminary Blood 06/06/24 04:10 Blood Culture - Preliminary Blood 06/06/24 04:25 Blood Culture - Preliminary Blood Assessment and Plan (1) Fever Current Visit: Yes Status: Acute Code(s): R50.9 - FEVER, UNSPECIFIED SNOMED Code(s): 902382736 (2) Weakness Current Visit: Yes Status: Acute Code(s): R53.1 - WEAKNESS SNOMED Code(s): 41401861 Plan: 1patient presented to hospital with generalized weakness he did have a fall and also have apparently fever at home with initial workup has been negative including a negative UA chest x-ray has been negative evidence of any cellulitis abdominal soft on rectal examination with a question of viral syndrome versus related to the permacatheter 2influenza and RSV nasopharyngeal PCR came back negative CT abdominal pelvis did not show any acute and abdominal pathology 3blood culture has been obtained peripherally as well as from the permacatheter has been obtained and results are currently pending 4patient did have resolution of his fever we will continue Rocephin with di scharge antibiotics on the basis of final culture Dictation was produced using [employer] dictation software. please excuse any grammatical, word or spelling errors. Time with Patient: Less than 30
[2024-06-10 08:35] LABS: Basophils # (A) 0.01 X 10*3/uL (0.00-0.10); Basophils % (A) 0.2 %; Eosinophils # (A) 0.06 X 10*3/uL (0.04-0.35); Eosinophils % (A) 1.1 %; HCT 26.6 % (39.6-50.0); HGB 8.5 g/dL (13.0-17.0); Lymphocytes # (A) 0.48 X 10*3/uL (0.90-5.00); Lymphocytes % (A) 8.9 %; MCH 28.6 pg (27.0-32.0); MCV 89.6 FL (80.0-97.0); Mean Platelet Volume 9.6 FL (9.5-12.2); Monocytes # (A) 0.45 X 10*3/uL (0.20-1.00); Monocytes % (A) 8.3 %; NRBC Per 100 WBC 0 X 10*3/uL (0.00-0.01); Neutrophils # (A) 4.37 X 10*3/uL (1.80-7.70); Neutrophils % (A) 81.1 %; Platelet Count 253 X 10*3/uL (140-440); RBC 2.97 X 10*6/uL (4.40-5.60); RDW 14.6 % (11.5-14.5); WBC 5.39 X 10*3/uL (4.50-10.00)
[2024-06-10 09:31] LABS: BUN/Creat Ratio 10.34 Ratio (12.00-20.00); Blood Urea Nitrogen 39.3 mg/dL (9.0-27.0); Calcium 7.9 mg/dL (8.7-10.3); Carbon Dioxide 26.1 mmol/L (21.6-31.8); Chloride 102 mmol/L (96-109); Glucose 92 mg/dL (70-110); Sodium 138 mmol/L (135-145)
[2024-06-10 11:58] LABS: Glucose,Whole Blood 208 mg/dL (70-110)
[2024-06-10 12:01] LABS: Glucose,Whole Blood 212 mg/dL (70-110)
--- NOTE | 2024-06-10 13:41 | P.PN ---
Subjective patient is seen for follow-up for end-stage renal disease. Scheduled for hemodialysis today. Blood cultures remain negative. stool for occult blood is positive. Hemoglobin is 8.5 today. Objective - Vital Signs Vital signs: Vital Signs Temp 98.2 F 06/10/24 08:00 Pulse 73 06/10/24 08:00 Resp 18 06/10/24 08:00 BP 159/68 06/10/24 08:00 Pulse Ox 94 L 06/10/24 08:00 FiO2 Intake & Output 06/09/24 06/10/24 06/10/24 18:59 06:59 18:59 Intake Total 100 120 Balance 100 120 Intake: Oral 100 120 Other: # Voids 2 2 # Bowel Movements 2 - Exam patient is awake, comfortable, alert oriented 3. Examination of the heart S1 and S2 Examination of the lungs bilateral breath sounds are heard Abdomen is soft nontender Examination of lower extremities shows no significant edema. CONTACT AGENT exam grossly intact No drainage noted at the site of the dialysis catheter. - Labs CBC & Chem 7: 06/10/24 04:37 06/10/24 04:37 Labs: Abnormal Lab Results - Last 24 Hours (Table) 06/09/24 06/09/24 06/10/24 Range/Units 17:27 20:13 04:37 RBC 2.97 L (4.40-5.60) X 10*6/uL Hgb 8.5 L (13.0-17.0) g/dL Hct 26.6 L (39.6-50.0) % RDW 14.6 H (11.5-14.5) % Lymphocytes # 0.48 L (0.90-5.00) X 10*3/uL BUN (9.0-27.0) mg/dL Creatinine (0.6-1.5) mg/dL Est GFR (CKD-EPI) (>=60) BUN/Creatinine Ratio (12.00-20.00) Ratio POC Glucose (mg/dL) 115 H 126 H (70-110) mg/dL Calcium (8.7-10.3) mg/dL 06/10/24 06/10/24 06/10/24 Range/Units 04:37 11:57 12:00 RBC (4.40-5.60) X 10*6/uL Hgb (13.0-17.0) g/dL Hct (39.6-50.0) % RDW (11.5-14.5) % Lymphocytes # (0.90-5.00) X 10*3/uL BUN 39.3 H (9.0-27.0) mg/dL Creatinine 3.8 H (0.6-1.5) mg/dL Est GFR (CKD-EPI) 15 L (>=60) BUN/Creatinine Ratio 10.34 L (12.00-20.00) Ratio POC Glucose (mg/dL) 208 H 212 H (70-110) mg/dL Calcium 7.9 L (8.7-10.3) mg/dL Microbiology - Last 24 Hours (Table) 06/06/24 14:25 Blood Culture - Preliminary Blood 06/06/24 13:17 Blood Culture - Preliminary Blood 06/06/24 04:10 Blood Culture - Preliminary Blood 06/06/24 04:25 Blood Culture - Preliminary Blood Assessment and Plan Assessment: 1. End-stage renal disease maintained on hemodialysis on a Saturday schedule at [place]. Patient was recently started on dialysis about 2 weeks ago after hospitalization for severe anemia and worsening renal function. History of stage IV CK D with previous creatinine around 3-3.5 mg/dL secondary to diabetic kidney disease. 2. History of fever rule out permacath related infection 3. Anemia of chronic disease 4. CK D mineral bone disorder 5. GI bleed, status post packed RBCs transfusion, GI on consult Plan: hemodialysis today with UF of about 1.5 L GI workup
--- NOTE | 2024-06-10 14:35 | PN ---
PROGRESS NOTE DATE OF SERVICE: 06/10/2024 SUBJECTIVE: This is an 84-year-old gentleman with past medical history of multiple medical problems, was recently admitted with fever with possible sepsis. Cultures are negative. Currently, the patient also had GI bleed also, after transfusion hemoglobin is 8.5. OBJECTIVE: VITAL SIGNS: Pulse is 73, blood pressure 159/68, respirations 18. CHEST: Clear to auscultation. CARDIOVASCULAR: S1, S2. ABDOMEN: Soft. NERVOUS SYSTEM: Nonfocal. LABORATORY DATA: Reviewed. ASSESSMENT: 1. Possible sepsis with fever of undetermined etiology, on empiric antibiotics. Cultures negative so far, present on admission. 2. Anemia with melenic stools with possible acute GI bleed. 3. Orthostatic hypotension. 4. Chronic kidney disease, on hemodialysis. 5. Mechanical fall. 6. Fungal infection of the groin with failure of outpatient treatment. 7. Multiple complex medical issues. RECOMMENDATIONS: Recommended to continue current management, continue symptomatic treatment. Otherwise repeat labs. Consult Gastroenterology, possible endoscopies. Continue with empiric antibiotics and closely follow with Infectious Disease and multiple consultants. Prognosis extremely guarded because of multiple complex medical issues. Discussed with family. Further recommendations to follow. MMODL / IJN: [id number] /
[2024-06-10 17:22] LABS: Glucose,Whole Blood 90 mg/dL (70-110)
--- NOTE | 2024-06-10 17:45 | P.CONS ---
History of Present Illness - Reason for Consult Consult date: 06/10/24 Positive occult stool, dark tarry stool Requesting physician: Kamlesh Rose - Chief Complaint Generalized weakness, sepsis - History of Present Illness This is a pleasant 84-year-old male with past medical history of end-stage renal disease with recent started on hemodialysis, coronary artery disease, diabetes mellitus, hyperlipidemia, hypertension who was transferred from [facility] for concerns of sepsis. Apparently patient has been having intermittent fevers and source has not been identified. Patient was also recently hospitalized here for kidney disease. He has a history of anemia. He has been on oral iron and now parental iron with his hemodialysis. He has been reporting black stools for the last week or so. He did have a positive stool occult blood. Patient has normochromic normocytic anemia. Denies any abdominal pain, nausea or vomiting. No previous upper endoscopy no history of peptic ulcer disease. Not on any anticoagulation. Remote colonoscopy. Review of Systems REVIEW OF SYSTEMS: CARDIOPULMONARY: No chest pain or shortness of breath. Gastrointestinal: No abdominal pain. No nausea or vomiting. No hematemesis, coffee-ground emesis. No rectal bleeding, patient reports dark stool. GENITOURINARY: No dysuria or hematuria. Kidney disease dictation was produced using [employer] dictation software. please excuse any grammatical, word or spelling errors. Hemodialysis MUSCULOSKELETAL: Reports normal range of motion., Joint pain. SKIN: No rashes. No jaundice. ENDOCRINE: No chills, fevers. No excessive weight gain or loss. No polydipsia or polyuria. PSYCHIATRIC: Unremarkable. NEUROLOGY: No change in mental status. Denies dizziness, headache. ENT: Vision unremarkable. CONSTITUTIONAL: No recent weight loss. No fever, chills, night sweats. Past Medical History Past Medical History: Coronary Artery Disease (CAD), Diabetes Mellitus, Hyp erlipidemia, Hypertension, Osteoarthritis (OA), Renal Disease Additional Past Medical History / Comment(s): ilsa MWElisabeth new as of last week History of Any Multi-Drug Resistant Organisms: None Reported Past Surgical History: No Surgical Hx Reported Past Psychological History: No Psychological Hx Reported Smoking Status: Former smoker Past Alcohol Use History: None Reported Past Drug Use History: None Reported Medications and Allergies Home Medications Medication Instructions Recorded Confirmed Type Ascorbic Acid [Vitamin C] 500 mg PO DAILY 05/24/24 06/06/24 History Aspirin EC [Ecotrin Low Dose] 81 mg PO DAILY 05/24/24 06/06/24 History Atorvastatin [Lipitor] 80 mg PO HS 05/24/24 06/06/24 History Clobetasol Propionate [Temovate 1 applic TOPICAL BID PRN 05/24/24 06/06/24 History 0.05% Cream] Doxazosin [Cardura] 4 mg PO BID 05/24/24 06/06/24 History Ferrous Sulfate [Iron (65 MG 325 mg PO DAILY 05/24/24 06/06/24 History Elemental)] Finasteride [Proscar] 5 mg PO DAILY 05/24/24 06/06/24 History Hydrocortisone Cream 1 applic TOPICAL BID PRN 05/24/24 06/06/24 History [Hydrocortisone 2.5% Cream] Levothyroxine Sodium [Synthroid] 50 mcg PO DAILY 05/24/24 06/06/24 History Magnesium Oxide [Mag-Ox] 400 mg PO DAILY 05/24/24 06/06/24 History Metoprolol Tartrate [Lopressor] 50 mg PO BID 05/24/24 06/06/24 History Mv-Min/Folic/K1/Lycopen/Lutein 1 tab PO DAILY 05/24/24 06/06/24 History [Centrum Silver Men Tablet] Nystatin 100,000Unit/gm Cream 1 applic TOPICAL BID PRN 05/24/24 06/06/24 History [Mycostatin Cream] Triamcinolone 0.1% Cream [Kenalog 1 applic TOPICAL BID PRN 05/24/24 06/06/24 History 0.1% Cream] Torsemide [Demadex] 40 mg PO DAILY 30 Days #60 tablet 05/29/24 06/06/24 Rx hydrALAZINE HCL [Apresoline] 50 mg PO TID 30 Days #90 tab 05/29/24 06/06/24 Rx Allergies Allergy/AdvReac Type Severity Reaction Status Date / Time No Known Allergies Allergy Verified 06/06/24 09:55 Physical Exam Vitals: Vital Signs Temp Pulse Pulse Pulse Resp BP BP 06/10/24 08:00 98.2 F 73 18 159/68 06/10/24 03:47 60 06/10/24 02:16 98.3 F 63 16 177/72 06/09/24 19:51 99.2 F 57 L 18 149/61 06/09/24 16:41 56 L 06/09/24 14:08 98.5 F 55 L 17 BP BP Pulse Ox 06/10/24 08:00 94 L 06/10/24 03:47 167/68 06/10/24 02:16 95 06/09/24 19:51 96 06/09/24 16:41 177/63 06/09/24 14:08 135/54 96 Intake and Output 06/09/24 06/10/24 06/10/24 22:59 06:59 14:59 Intake Total 120 Balance 120 Intake: Oral 120 Other: # Voids 2 2 # Bowel Movements 2 General appearance: The patient is alert, oriented, appears in no acute distress. HET: Head is normocephalic and atraumatic. Conjunctiva pink. Sclera anicteric. Neck: Supple without lymphadenopathy. Trachea midline. Heart: Regular. Lungs: Equal expansion, normal respiratory effort. Abdomen: Soft, nontender, nondistended. Skin: No rashes. No jaundice. Extremities: Normal skin color and turgor. No pedal edema. Neurological: No focal deficits. Alert and oriented x3. Results CBC & Chem 7: 06/10/24 04:37 06/10/24 04:37 Labs: Abnormal Lab Results - Last 24 Hours (Table) 06/09/24 06/09/24 06/10/24 Range/Units 17:27 20:13 04:37 RBC 2.97 L (4.40-5.60) X 10*6/uL Hgb 8.5 L (13.0-17.0) g/dL Hct 26.6 L (39.6-50.0) % RDW 14.6 H (11.5-14.5) % Lymphocytes # 0.48 L (0.90-5.00) X 10*3/uL BUN (9.0-27.0) mg/dL Creatinine (0.6-1.5) mg/dL Est GFR (CKD-EPI) (>=60) BUN/Creatinine Ratio (12.00-20.00) Ratio POC Glucose (mg/dL) 115 H 126 H (70-110) mg/dL Calcium (8.7-10.3) mg/dL 06/10/24 Range/Units 04:37 RBC (4.40-5.60) X 10*6/uL Hgb (13.0-17.0) g/dL Hct (39.6-50.0) % RDW (11.5-14.5) % Lymphocytes # (0.90-5.00) X 10*3/uL BUN 39.3 H (9.0-27.0) mg/dL Creatinine 3.8 H (0.6-1.5) mg/dL Est GFR (CKD-EPI) 15 L (>=60) BUN/Creatinine Ratio 10.34 L (12.00-20.00) Ratio POC Glucose (mg/dL) (70-110) mg/dL Calcium 7.9 L (8.7-10.3) mg/dL Microbiology - Last 24 Hours (Table) 06/06/24 14:25 Blood Culture - Preliminary Blood 06/06/24 13:17 Blood Culture - Preliminary Blood 06/06/24 04:10 Blood Culture - Preliminary Blood 06/06/24 04:25 Blood Culture - Preliminary Blood Assessment and Plan (1) Melena Narrative/Plan: 84-year-old male presenting from outside facility for weakness and sepsis workup with end-stage renal disease on hemodialysis with chronic anemia on iron reporting black stools for the last weeks duration. He has a normocytic normochromic anemia likely anemia of chronic disease however due to reported black stool and positive occult stool we will proceed with upper endoscopy to evaluate for upper GI source. Current Visit: Yes Status: Acute Code(s): K92.1 - MELENA SNOMED Code(s): 2169030 (2) Normochromic normocytic anemia Current Visit: Yes Status: Acute Code(s): D64.9 - ANEMIA, UNSPECIFIED SNOMED Code(s): 41149718 (3) End-stage renal disease on hemodialysis Current Visit: Yes Status: Acute Code(s): N18.6 - END STAGE RENAL DISEASE; Z99.2 - DEPENDENCE ON RENAL DIALYSIS SNOMED Code(s): 874366907 (4) Diabetes mellitus Current Visit: Yes Status: Acute Code(s): E11.9 - TYPE 2 DIABETES MELLITUS WITHOUT COMPLICATIONS SNOMED Code(s): 18411967 (5) Coronary artery disease Current Visit: Yes Status: Acute Code(s): I25.10 - ATHSCL HEART DISEASE OF [place] CORONARY ARTERY W/O ANG PCTRS SNOMED Code(s): 89703094 (6) Fever Current Visit: Yes Status: Acute Code(s): R50.9 - FEVER, UNSPECIFIED SNOMED Code(s): 687483067 (7) Weakness Current Visit: Yes Status: Acute Code(s): R53.1 - WEAKNESS SNOMED Code(s): 23948402 Plan: 1. Continue symptomatic and supportive care 2. N.p.o. after midnight 3. Protonix 40 mg daily GI prophylaxis 4. Anemia profile ordered 5. Daily CBC, transfuse for hemoglobin less than 7 6. Will proceed with upper endoscopy tomorrow 7. Rest of medical management per primary medical team Thank you for this consultation, we will continue to follow. Dr. Bg Lyn I agree with the dictator's note, documented as a scribe by Nanda Mane.
[2024-06-10 20:25] LABS: Glucose,Whole Blood 123 mg/dL (70-110)
[2024-06-11 05:41] LABS: Glucose,Whole Blood 94 mg/dL (70-110)
--- NOTE | 2024-06-11 08:27 | P.PN ---
Subjective Progress Note Date: 06/10/24 Principal diagnosis: Reason for follow-up is fever Patient is a 84-year-old male with a past medical history significant for diabetes mellitus hypertension hyperlipidemia osteoarthritis coronary disease patient has been recently diagnosed with the renal failure with patient has got right subclavian permacatheter patient has been brought to the hospital concerning for generalized weakness and fever with initial workup negative. On today's evaluation that is 06/10/2024, patient has been afebrile, patient is breathing comfortably and is currently on room air, patient denies having any significant cough no chest pain shortness of breath, patient denies nausea vomit ing or diarrhea and no abdominal pain, feeling better no new symptoms. Patient white count is 5.39, creatinine 3.8 culture has been negative Objective - Vital Signs Vital signs: Vital Signs Temp 98.2 F 06/10/24 08:00 Pulse 73 06/10/24 08:00 Resp 18 06/10/24 08:00 BP 159/68 06/10/24 08:00 Pulse Ox 94 L 06/10/24 08:00 FiO2 Intake & Output 06/09/24 06/10/24 06/10/24 18:59 06:59 18:59 Intake Total 100 120 Balance 100 120 Intake: Oral 100 120 Other: # Voids 2 2 # Bowel Movements 2 - Exam GENERAL DESCRIPTION: An elderly male lying in bed in no distress RESPIRATORY SYSTEM: Unlabored breathing , decreased breath sounds at bases HEART: S1 S2 regular rate and rhythm , ABDOMEN: Soft , no tenderness EXTREMITIES: No edema feet - Labs CBC & Chem 7: 06/10/24 04:37 06/10/24 04:37 Labs: Abnormal Lab Results - Last 24 Hours (Table) 06/09/24 06/09/24 06/10/24 Range/Units 17:27 20:13 04:37 RBC 2.97 L (4.40-5.60) X 10*6/uL Hgb 8.5 L (13.0-17.0) g/dL Hct 26.6 L (39.6-50.0) % RDW 14.6 H (11.5-14.5) % Lymphocytes # 0.48 L (0.90-5.00) X 10*3/uL BUN (9.0-27.0) mg/dL Creatinine (0.6-1.5) mg/dL Est GFR (CKD-EPI) (>=60) BUN/Creatinine Ratio (12.00-20.00) Ratio POC Glucose (mg/dL) 115 H 126 H (70-110) mg/dL Calcium (8.7-10.3) mg/dL 06/10/24 06/10/24 06/10/24 Range/Units 04:37 11:57 12:00 RBC (4.40-5.60) X 10*6/uL Hgb (13.0-17.0) g/dL Hct (39.6-50.0) % RDW (11.5-14.5) % Lymphocytes # (0.90-5.00) X 10*3/uL BUN 39.3 H (9.0-27.0) mg/dL Creatinine 3.8 H (0.6-1.5) mg/dL Est GFR (CKD-EPI) 15 L (>=60) BUN/Creatinine Ratio 10.34 L (12.00-20.00) Ratio POC Glucose (mg/dL) 208 H 212 H (70-110) mg/dL Calcium 7.9 L (8.7-10.3) mg/dL Microbiology - Last 24 Hours (Table) 06/06/24 14:25 Blood Culture - Preliminary Blood 06/06/24 13:17 Blood Culture - Preliminary Blood 06/06/24 04:10 Blood Culture - Preliminary Blood 06/06/24 04:25 Blood Culture - Preliminary Blood Assessment and Plan (1) Fever Current Visit: Yes Status: Acute Code(s): R50.9 - FEVER, UNSPECIFIED SNOMED Code(s): 797365385 (2) Weakness Current Visit: Yes Status: Acute Code(s): R53.1 - WEAKNESS SNOMED Code(s): 39083114 Plan: 1patient presented to hospital with generalized weakness he did have a fall and also have apparently fever at home with initial workup has been negative including a negative UA chest x-ray has been negative evidence of any cellulitis abdominal soft on rectal examination with a question of viral syndrome versus related to the permacatheter 2influenza and RSV nasopharyngeal PCR came back negative CT abdominal pelvis did not show any acute and abdominal pathology 3blood culture has been obtained peripherally as well as from the permacatheter has been negative so far 4patient did have resolution of his fever and with negative cultures currently on Rocephin can be safely transition to short course of oral Ceftin on discharge Dictation was produced using [employer] dictation software. please excuse any grammatical, word or spelling errors. Time with Patient: Less than 30
[2024-06-11] MEDS: PANTOPRAZOLE 40 MG/10 ML VIAL IVP SCH (09:02)
[2024-06-11 10:39] LABS: Basophils # (A) 0.01 X 10*3/uL (0.00-0.10); Basophils % (A) 0.2 %; Eosinophils # (A) 0.06 X 10*3/uL (0.04-0.35); Eosinophils % (A) 1.1 %; HCT 26.7 % (39.6-50.0); HGB 8.4 g/dL (13.0-17.0); Lymphocytes # (A) 0.52 X 10*3/uL (0.90-5.00); Lymphocytes % (A) 9.9 %; MCH 28.5 pg (27.0-32.0); MCHC 31.5 g/dL (32.0-37.0); MCV 90.5 FL (80.0-97.0); Mean Platelet Volume 9.5 FL (9.5-12.2); Monocytes # (A) 0.44 X 10*3/uL (0.20-1.00); Monocytes % (A) 8.4 %; NRBC Per 100 WBC 0 X 10*3/uL (0.00-0.01); Neutrophils # (A) 4.21 X 10*3/uL (1.80-7.70); Platelet Count 240 X 10*3/uL (140-440); RBC 2.95 X 10*6/uL (4.40-5.60); RDW 14.5 % (11.5-14.5); WBC 5.26 X 10*3/uL (4.50-10.00)
[2024-06-11 11:03] LABS: BUN/Creat Ratio 7.54 Ratio (12.00-20.00); Blood Urea Nitrogen 19.6 mg/dL (9.0-27.0); Carbon Dioxide 27.3 mmol/L (21.6-31.8); Chloride 98 mmol/L (96-109); Glucose 91 mg/dL (70-110); Potassium 3.7 mmol/L (3.5-5.5); Sodium 136 mmol/L (135-145)
[2024-06-11 12:00] LABS: Glucose,Whole Blood 90 mg/dL (70-110)
[2024-06-11] MEDS ORDERED: PROPOFOL 10 MG/ML 20 ML VIAL IV ONE (13:58)
[2024-06-11] MEDS ORDERED: LIDOCAINE 2% (PF) 20 MG/ML 5 ML VIAL ONE (13:58)
[2024-06-11] MEDS: SODIUM CHLORIDE 0.9% 500 ML 500 ML IV ONE (14:21)
--- NOTE | 2024-06-11 14:33 | P.PCN ---
Date of Procedure: 06/11/24 Procedure(s) Performed: BRIEF HISTORY: Patient is a 84-year-old, pleasant, pleasant white male scheduled for an upper endoscopy as a part evaluation of intermittent black tarry stools for the last 2 weeks duration. Patient has history of end-stage renal disease on hemodialysis. His hemoglobin was 7.4 g/dL. Was noted to have elevated BUN all suspicious for upper GI source of bleeding and hence An upper endoscopy to evaluate for the. PROCEDURE PERFORMED: Esophagogastroduodenoscopy with cautery using a gold probe. PREOPERATIVE DIAGNOSIS: Black tarry stools/anemia. IV sedation per anesthesia. PROCEDURE: After informed consent was obtained, the patient was brought into the endoscopy unit. IV sedation was administered by Anesthesia under continuous monitoring. Initially the Olympus GIF-140 video endoscope was inserted into the mouth. Esophagus intubated without any difficulty. It was gradually advanced into the stomach and duodenum and carefully examined. The second part of the duodenum appeared normal. The bulb of the duodenum there were several scattered angiectasia with no active bleeding and these were all cauterized using a gold probe. The scope at this time was withdrawn to the stomach, adequately insufflated with air, and upon careful examination, mucosa of the antrum, body, cardia and the fundus appeared normal. The scope was then withdrawn into the esophagus. Sliding-type hiatal hernia noted. The GE junction was located at 39 cm from the incisors. The esophagus appeared normal. There were no erosions or ulcerations seen and the patient tolerated the procedure well. IMPRESSION: 1. 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 2. Small hiatal hernia. RECOMMENDATIONS: The findings of this examination were discussed with the patient as well as his family. Monitor CBC daily. Advance diet as tolerated..
[2024-06-11 15:04] VITALS: BMI 26.6
--- NOTE | 2024-06-11 15:25 | P.PN ---
Subjective Progress Note Date: 06/11/24 Patient is evaluated today in follow-up on the medical floor. Continues on IV ceftriaxone while inpatient did have a low-grade fever over 100.5 yesterday evening. ID following. Patient continues to report black stool last episode was yesterday evening. He is scheduled to undergo upper endoscopy today. Blood culture is negative and final. Review of Systems Constitutional: Denied any fatigue denied any fever. Cardio vascular: denied any chest pain, palpitations Gastrointestinal: denied any nausea, vomiting, diarrhea Pulmonary: Denied any shortness of breath cough Neurologic denied any new focal deficits All inpatient medications were reviewed and appropriate changes in these medications as dictated in the interval history and assessment and plan. PHYSICAL EXAMINATION: GENERAL: The patient is alert and oriented x3, not in any acute distress. Well developed, well nourished. HEENT: Pupils are round and equally reacting to light. EOMI. No scleral icterus. No conjunctival pallor. Normocephalic, atraumatic. No pharyngeal erythema. No thyromegaly. CARDIOVASCULAR: S1 and S2 present. No murmurs, rubs, or gallops. PULMONARY: Chest is clear to auscultation, no wheezing or crackles. ABDOMEN: Soft, nontender, nondistended, normoactive bowel sounds. No palpable organomegaly. MUSCULOSKELETAL: No joint swelling or deformity. EXTREMITIES: No cyanosis, clubbing, or pedal edema. NEUROLOGICAL: Gross neurological examination did not reveal any focal deficits. SKIN: No rashes. Assessment and plan Fever of unknown origin Anemia with melenic stools concern for acute upper GI bleed Orthostatic hypotension Chronic kidney disease maintained on hemodialysis Mechanical fall Intertrigo Diabetes mellitus type II Prophylaxis DVT prophylaxis Full code Plan Continue with clobetasol hydrocortisone ointment to the groin as well as IV fluconazole Continue with IV ceftriaxone and transition to oral Ceftin on discharge Pending upper endoscopy Continue supportive care D/C in the next 24 hours Repeat CBC in the AM The impression and plan of care has been dictated by Nurse Katlyn Kulkarni as directed. Dr. Shoshana MD I have performed a history and physical examination and medical decision making of this patient, discussed the same with the dictator, and agree with the dict ators assessment and plan as written, documented as a scribe. Based on total visit time, I have performed more than 50% of this visit. Objective - Vital Signs Vital signs: Vital Signs Temp 97.8 F 06/11/24 13:45 Pulse 56 L 06/11/24 13:45 Resp 17 06/11/24 02:11 BP 169/62 06/11/24 13:45 Pulse Ox 97 06/11/24 13:45 FiO2 Intake & Output 06/10/24 06/11/24 06/11/24 18:59 06:59 18:59 Intake Total 640 100 Output Total 1400 Balance -760 100 Weight 72.575 kg Intake: IV 100 Oral 240 Hemodialysis 400 Output: Hemodialysis 900 Hemodialysis Net Amount 500 Other: # Voids 1 1 1 - Labs CBC & Chem 7: 06/11/24 06:19 06/11/24 06:19 Labs: Abnormal Lab Results - Last 24 Hours (Table) 06/10/24 06/11/24 06/11/24 Range/Units 20:22 06:19 06:19 RBC 2.95 L (4.40-5.60) X 10*6/uL Hgb 8.4 L (13.0-17.0) g/dL Hct 26.7 L (39.6-50.0) % MCHC 31.5 L (32.0-37.0) g/dL Lymphocytes # 0.52 L (0.90-5.00) X 10*3/uL Creatinine 2.6 H (0.6-1.5) mg/dL Est GFR (CKD-EPI) 24 L (>=60) BUN/Creatinine Ratio 7.54 L (12.00-20.00) Ratio POC Glucose (mg/dL) 123 H (70-110) mg/dL Calcium 8.0 L (8.7-10.3) mg/dL Microbiology - Last 24 Hours (Table) 06/06/24 04:10 Blood Culture - Final Blood 06/06/24 04:25 Blood Culture - Final Blood Assessment and Plan Time with Patient: Less than 30
[2024-06-11 16:59] LABS: Glucose,Whole Blood 113 mg/dL (70-110)
--- NOTE | 2024-06-11 17:26 | P.PN ---
Subjective patient is seen for follow-up for end-stage renal disease. Patient states that he felt very weak and fatigued last night. He is noted to have temp of 100.5 F last night. Patient had dialysis yesterday. Blood cultures remain negative. Scheduled for EGD today. Objective - Vital Signs Vital signs: Vital Signs Temp 97.8 F 06/11/24 13:45 Pulse 56 L 06/11/24 13:45 Resp 17 06/11/24 02:11 BP 169/62 06/11/24 13:45 Pulse Ox 97 06/11/24 13:45 FiO2 Intake & Output 06/10/24 06/11/24 06/11/24 18:59 06:59 18:59 Intake Total 640 100 Output Total 1400 Balance -760 100 Weight 72.575 kg Intake: IV 100 Oral 240 Hemodialysis 400 Output: Hemodialysis 900 Hemodialysis Net Amount 500 Other: # Voids 1 1 1 - Exam patient is awake, comfortable, alert oriented 3. Examination of lower extremities shows no significant edema. POOL TABLE [employer]CH[employer]IC exam grossly intact No drainage noted at the site of the dialysis catheter. - Labs CBC & Chem 7: 06/11/24 06:19 06/11/24 06:19 Labs: Abnormal Lab Results - Last 24 Hours (Table) 06/10/24 06/11/24 06/11/24 Range/Units 20:22 06:19 06:19 RBC 2.95 L (4.40-5.60) X 10*6/uL Hgb 8.4 L (13.0-17.0) g/dL Hct 26.7 L (39.6-50.0) % MCHC 31.5 L (32.0-37.0) g/dL Lymphocytes # 0.52 L (0.90-5.00) X 10*3/uL Creatinine 2.6 H (0.6-1.5) mg/dL Est GFR (CKD-EPI) 24 L (>=60) BUN/Creatinine Ratio 7.54 L (12.00-20.00) Ratio POC Glucose (mg/dL) 123 H (70-110) mg/dL Calcium 8.0 L (8.7-10.3) mg/dL 06/11/24 Range/Units 16:58 RBC (4.40-5.60) X 10*6/uL Hgb (13.0-17.0) g/dL Hct (39.6-50.0) % MCHC (32.0-37.0) g/dL Lymphocytes # (0.90-5.00) X 10*3/uL Creatinine (0.6-1.5) mg/dL Est GFR (CKD-EPI) (>=60) BUN/Creatinine Ratio (12.00-20.00) Ratio POC Glucose (mg/dL) 113 H (70-110) mg/dL Calcium (8.7-10.3) mg/dL Microbiology - Last 24 Hours (Table) 06/06/24 04:10 Blood Culture - Final Blood 06/06/24 04:25 Blood Culture - Final Blood Assessment and Plan Assessment: 1. End-stage renal disease maintained on hemodialysis on a Saturday schedule at [place]. Patient was recently started on dialysis about 2 weeks ago after hospitalization for severe anemia and worsening renal function. History of stage IV CK D with previous creatinine around 3-3.5 mg/dL secondary to diabetic kidney disease. 2. History of fever rule out permacath related infection 3. Anemia of chronic disease 4. CK D mineral bone disorder 5. GI bleed, status post packed RBCs transfusion, GI on consult.. For EGD today. Plan: hemodialysis in a.m. Draw blood cultures with hemodialysis tomorrow.
[2024-06-11 20:26] LABS: Glucose,Whole Blood 162 mg/dL (70-110)
[2024-06-12 05:32] LABS: Glucose,Whole Blood 84 mg/dL (70-110)
[2024-06-12 10:53] LABS: Basophils # (A) 0.01 X 10*3/uL (0.00-0.10); Basophils % (A) 0.2 %; Eosinophils # (A) 0.09 X 10*3/uL (0.04-0.35); Eosinophils % (A) 1.7 %; HCT 27.1 % (39.6-50.0); HGB 8.5 g/dL (13.0-17.0); Lymphocytes # (A) 0.45 X 10*3/uL (0.90-5.00); Lymphocytes % (A) 8.3 %; MCH 28.1 pg (27.0-32.0); MCHC 31.4 g/dL (32.0-37.0); MCV 89.4 FL (80.0-97.0); Mean Platelet Volume 9.5 FL (9.5-12.2); Monocytes # (A) 0.58 X 10*3/uL (0.20-1.00); Monocytes % (A) 10.7 %; NRBC Per 100 WBC 0 X 10*3/uL (0.00-0.01); Neutrophils # (A) 4.25 X 10*3/uL (1.80-7.70); Neutrophils % (A) 78.7 %; Platelet Count 251 X 10*3/uL (140-440); RBC 3.03 X 10*6/uL (4.40-5.60); RDW 14.2 % (11.5-14.5)
[2024-06-12 12:25] LABS: Glucose,Whole Blood 107 mg/dL (70-110)
--- NOTE | 2024-06-12 12:56 | P.PN ---
Subjective patient is seen for follow-up for end-stage renal disease. no significant complaints today. Scheduled for hemodialysis today. Status post EGD on 06/11/2024 which showed several scattered angioiectasia status post cauterization. No active bleeding was noted. Objective - Vital Signs Vital signs: Vital Signs Temp 98 F 06/12/24 08:00 Pulse 58 L 06/12/24 08:00 Resp 16 06/12/24 08:00 BP 165/74 06/12/24 08:00 Pulse Ox 95 06/12/24 08:00 FiO2 Intake & Output 06/11/24 06/12/24 06/12/24 18:59 06:59 18:59 Intake Total 100 Balance 100 Weight 72.575 kg Intake: IV 100 Other: # Voids 1 3 # Bowel Movements 1 - Exam patient is awake, comfortable, alert oriented 3. Examination of lower extremities shows no significant edema. 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 - Labs CBC & Chem 7: 06/12/24 06:36 06/11/24 06:19 Labs: Abnormal Lab Results - Last 24 Hours (Table) 06/11/24 06/11/24 06/12/24 Range/Units 16:58 20:24 06:36 RBC 3.03 L (4.40-5.60) X 10*6/uL Hgb 8.5 L (13.0-17.0) g/dL Hct 27.1 L (39.6-50.0) % MCHC 31.4 L (32.0-37.0) g/dL Lymphocytes # 0.45 L (0.90-5.00) X 10*3/uL POC Glucose (mg/dL) 113 H 162 H (70-110) mg/dL Microbiology - Last 24 Hours (Table) 06/06/24 14:25 Blood Culture - Final Blood 06/06/24 13:17 Blood Culture - Final Blood 06/06/24 04:10 Blood Culture - Final Blood 06/06/24 04:25 Blood Culture - Final Blood Assessment and Plan Assessment: 1. End-stage renal disease maintained on hemodialysis on a Saturday schedule at [place]. Patient was recently started on dialysis about 2 weeks ago after hospitalization for severe anemia and worsening renal function. History of stage IV CK D with previous creatinine around 3-3.5 mg/dL secondary to diabetic kidney disease. 2. History of fever rule out permacath related infection 3. Anemia of chronic disease 4. CK D mineral bone disorder 5. GI bleed, status post packed RBCs transfusion, GI on consult.. S/p EGD which showed scattered angioectasia status post cauterization. No active bleeding. Plan: hemodialysis in a.m. Draw blood cultures with hemodialysis today.
--- NOTE | 2024-06-12 16:12 | P.PN ---
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 On today's evaluation that is 06/11/2024, Patient did have a low-grade fever 100.5 last night however the patient is afebrile this morning patient denies h aving any chest pain shortness of breath or cough, the patient is breathing comfortably and currently on room air, patient denies any abdominal pain no diarrhea no nausea no vomiting. Patient white count is 5.26, creatinine is 2.6 Objective - Vital Signs Vital signs: Vital Signs Temp 97.8 F 06/11/24 14:50 Pulse 56 L 06/11/24 17:37 Resp 17 06/11/24 02:11 BP 135/62 06/11/24 17:37 Pulse Ox 95 06/11/24 17:37 FiO2 Intake & Output 06/11/24 06/11/24 06/12/24 06:59 18:59 06:59 Intake Total 100 Balance 100 Weight 72.575 kg Intake: IV 100 Other: # Voids 1 1 # Bowel Movements 1 - Exam GENERAL DESCRIPTION: An elderly male lying in bed in no distress RESPIRATORY SYSTEM: Unlabored breathing , decreased breath sounds at bases HEART: S1 S2 regular rate and rhythm , ABDOMEN: Soft , no tenderness EXTREMITIES: No edema feet - Labs CBC & Chem 7: 06/12/24 06:36 06/11/24 06:19 Labs: Abnormal Lab Results - Last 24 Hours (Table) 06/10/24 06/11/24 06/11/24 Range/Units 20:22 06:19 06:19 RBC 2.95 L (4.40-5.60) X 10*6/uL Hgb 8.4 L (13.0-17.0) g/dL Hct 26.7 L (39.6-50.0) % MCHC 31.5 L (32.0-37.0) g/dL Lymphocytes # 0.52 L (0.90-5.00) X 10*3/uL Creatinine 2.6 H (0.6-1.5) mg/dL Est GFR (CKD-EPI) 24 L (>=60) BUN/Creatinine Ratio 7.54 L (12.00-20.00) Ratio POC Glucose (mg/dL) 123 H (70-110) mg/dL Calcium 8.0 L (8.7-10.3) mg/dL 06/11/24 Range/Units 16:58 RBC (4.40-5.60) X 10*6/uL Hgb (13.0-17.0) g/dL Hct (39.6-50.0) % MCHC (32.0-37.0) g/dL Lymphocytes # (0.90-5.00) X 10*3/uL Creatinine (0.6-1.5) mg/dL Est GFR (CKD-EPI) (>=60) BUN/Creatinine Ratio (12.00-20.00) Ratio POC Glucose (mg/dL) 113 H (70-110) mg/dL Calcium (8.7-10.3) mg/dL Microbiology - Last 24 Hours (Table) 06/06/24 04:10 Blood Culture - Final Blood 06/06/24 04:25 Blood Culture - Final Blood Assessment and Plan (1) Fever Current Visit: Yes Status: Acute Code(s): R50.9 - FEVER, UNSPECIFIED SNOMED Code(s): 853395086 (2) Weakness Current Visit: Yes Status: Acute Code(s): R53.1 - WEAKNESS SNOMED Code(s): 95440297 Plan: 1patient presented to hospital with generalized weakness he did have a fall and also have apparently fever at home with initial workup has been negative including a negative UA chest x-ray has been negative evidence of any cellulitis abdominal soft on rectal examination with a question of viral syndrome versus related to the permacatheter 2influenza and RSV nasopharyngeal PCR came back negative CT abdominal pelvis did not show any acute and abdominal pathology 3blood culture has been obtained peripherally as well as from the permacatheter has been negative so far 4patient did have a low-grade fever last night however the patient is afebrile this morning we will monitor closely if any further fever to repeat the cultures continue with the Rocephin Dictation was produced using [employer] dictation software. please excuse any grammatical, word or spelling errors. Time with Patient: Less than 30
--- NOTE | 2024-06-12 16:12 | P.PN ---
Subjective Progress Note Date: 06/12/24 Principal diagnosis: Reason for follow-up is fever Patient is a 84-year-old male with a past medical history significant for diabetes mellitus hypertension hyperlipidemia osteoarthritis coronary disease patient has been recently diagnosed with the renal failure with patient has got right subclavian permacatheter patient has been brought to the hospital concerning for generalized weakness and fever with initial workup negative.Patient is s/p EGD completed by GI with evidence of Several scattered angioectasia in the duodenal bulb with no active bleeding s/p cautery using a gold probe and Small hiatal hernia. On today's evaluation that is 06/12/2024,the patient denies any fever or any chills, patient is breathing comfortably on room air, the patient denies chest pain shortness of breath and no significant cough, patient denies abdominal pain, no nausea vomiting or diarrhea. Patient mention feeling better currently waiting for dialysis. Patient white count is 5.40 blood urine culture has been negative Objective - Vital Signs Vital signs: Vital Signs Temp 98.1 F 06/12/24 14:00 Pulse 59 L 06/12/24 14:00 Resp 6 L 06/12/24 14:00 BP 126/60 06/12/24 14:00 Pulse Ox 98 06/12/24 14:00 FiO2 Intake & Output 06/11/24 06/12/24 06/12/24 18:59 06:59 18:59 Intake Total 100 118 Balance 100 118 Weight 72.575 kg Intake: IV 100 Oral 118 Other: # Voids 1 3 # Bowel Movements 1 - Exam GENERAL DESCRIPTION: An elderly male lying in bed in no distress RESPIRATORY SYSTEM: Unlabored breathing , decreased breath sounds at bases HEART: S1 S2 regular rate and rhythm , ABDOMEN: Soft , no tenderness EXTREMITIES: No edema feet - Labs CBC & Chem 7: 06/12/24 06:36 06/11/24 06:19 Labs: Abnormal Lab Results - Last 24 Hours (Table) 06/11/24 06/11/24 06/12/24 Range/Units 16:58 20:24 06:36 RBC 3.03 L (4.40-5.60) X 10*6/uL Hgb 8.5 L (13.0-17.0) g/dL Hct 27.1 L (39.6-50.0) % MCHC 31.4 L (32.0-37.0) g/dL Lymphocytes # 0.45 L (0.90-5.00) X 10*3/uL POC Glucose (mg/dL) 113 H 162 H (70-110) mg/dL Microbiology - Last 24 Hours (Table) 06/06/24 14:25 Blood Culture - Final Blood 06/06/24 13:17 Blood Culture - Final Blood 06/06/24 04:10 Blood Culture - Final Blood 06/06/24 04:25 Blood Culture - Final Blood Assessment and Plan (1) Fever Current Visit: Yes Status: Acute Code(s): R50.9 - FEVER, UNSPECIFIED SNOMED Code(s): 198562513 (2) Weakness Current Visit: Yes Status: Acute Code(s): R53.1 - WEAKNESS SNOMED Code(s): 40051933 Plan: 1patient presented to hospital with generalized weakness he did have a fall and also have apparently fever at home with initial workup has been negative including a negative UA chest x-ray has been negative evidence of any cellulitis abdominal soft on rectal examination with a question of viral syndrome versus related to the permacatheter 2influenza and RSV nasopharyngeal PCR came back negative CT abdominal pelvis did not show any acute and abdominal pathology 3blood culture has been obtained peripherally as well as from the permacatheter has been negative so far 4patient did have resolution of fever mention feeling better no clear focus of infection on empiric Rocephin may consider short course of oral Ceftin on discharge Dictation was produced using [employer] dictation software. please excuse any grammatical, word or spelling errors. Time with Patient: Less than 30
--- NOTE | 2024-06-12 16:31 | P.PN ---
Subjective Progress Note Date: 06/12/24 Principal diagnosis: GI bleed This is a pleasant 84-year-old male with past medical history of end-stage renal disease with recent started on hemodialysis, coronary artery disease, diabetes mellitus, hyperlipidemia, hypertension who was transferred from [facility] for concerns of sepsis. Apparently patient has been having intermittent fevers and source has not been identified. Patient was also recently hospitalized here for kidney disease. He has a history of anemia. He has been on oral iron and now parental iron with his hemodialysis. He has been reporting black stools for the last week or so. He did have a positive stool occult blood. Patient has normochromic normocytic anemia. Denies any abdominal pain, nausea or vomiting. No previous upper endoscopy no history of peptic ulcer disease. Not on any anticoagulation. Remote colonoscopy. 06/12/2024 Patient seen and examined today as a follow-up. Yesterday he underwent upper endoscopy with findings of multiple nonbleeding AVM in the duodenal bulb with no active bleeding status post cautery using gold probe ablation. Small hiatal hernia. Today he denies any abdominal pain, no nausea or vomiting. He is scheduled to undergo hemodialysis. Hemoglobin stable at 8.5. Denies any bowel movement today. Objective - Vital Signs Vital signs: Vital Signs Temp 97.9 F 06/12/24 01:57 Pulse 64 06/12/24 01:57 Resp 16 06/12/24 01:57 BP 186/72 06/12/24 01:57 Pulse Ox 95 06/12/24 01:57 FiO2 Intake & Output 06/11/24 06/12/24 06/12/24 18:59 06:59 18:59 Intake Total 100 Balance 100 Weight 72.575 kg Intake: IV 100 Other: # Voids 1 3 # Bowel Movements 1 - Exam General appearance: The patient is alert, oriented, appears in no acute distress. HET: Head is normocephalic and atraumatic. Conjunctiva pink. Sclera anicteric. Neck: Supple without lymphadenopathy. Abdomen: Soft, nontender, nondistended with bowel sounds. No guarding or rigidity. Extremities: Normal skin color and turgor. No pedal edema Skin: No rashes, no jaundice Neurological: No focal deficits. Alert and oriented. - Labs CBC & Chem 7: 06/12/24 06:36 06/11/24 06:19 Labs: Abnormal Lab Results - Last 24 Hours (Table) 06/11/24 06/11/24 06/11/24 Range/Units 06:19 06:19 16:58 RBC 2.95 L (4.40-5.60) X 10*6/uL Hgb 8.4 L (13.0-17.0) g/dL Hct 26.7 L (39.6-50.0) % MCHC 31.5 L (32.0-37.0) g/dL Lymphocytes # 0.52 L (0.90-5.00) X 10*3/uL Creatinine 2.6 H (0.6-1.5) mg/dL Est GFR (CKD-EPI) 24 L (>=60) BUN/Creatinine Ratio 7.54 L (12.00-20.00) Ratio POC Glucose (mg/dL) 113 H (70-110) mg/dL Calcium 8.0 L (8.7-10.3) mg/dL 06/11/24 Range/Units 20:24 RBC (4.40-5.60) X 10*6/uL Hgb (13.0-17.0) g/dL Hct (39.6-50.0) % MCHC (32.0-37.0) g/dL Lymphocytes # (0.90-5.00) X 10*3/uL Creatinine (0.6-1.5) mg/dL Est GFR (CKD-EPI) (>=60) BUN/Creatinine Ratio (12.00-20.00) Ratio POC Glucose (mg/dL) 162 H (70-110) mg/dL Calcium (8.7-10.3) mg/dL Microbiology - Last 24 Hours (Table) 06/06/24 14:25 Blood Culture - Final Blood 06/06/24 13:17 Blood Culture - Final Blood 06/06/24 04:10 Blood Culture - Final Blood 06/06/24 04:25 Blood Culture - Final Blood Assessment and Plan (1) Melena Narrative/Plan: 84-year-old male presenting from outside facility for weakness and sepsis workup with end-stage renal disease on hemodialysis with chronic anemia on iron reporting black stools for the last weeks duration. He has a normocytic normochromic anemia likely anemia of chronic disease however due to reported black stool and positive occult stool we will proceed with upper endoscopy to evaluate for upper GI source. Upper endoscopy revealed scattered AVMs without any active bleeding status post cautery with gold probe ablation. Monitor CBCs, transfuse for hemoglobin less than 7 Current Visit: Yes Status: Acute Code(s): K92.1 - MELENA SNOMED Code(s): 1708393 (2) Normochromic normocytic anemia Current Visit: Yes Status: Acute Code(s): D64.9 - ANEMIA, UNSPECIFIED SNOMED Code(s): 71253055 (3) End-stage renal disease on hemodialysis Current Visit: Yes Status: Acute Code(s): N18.6 - END STAGE RENAL DISEASE; Z99.2 - DEPENDENCE ON RENAL DIALYSIS SNOMED Code(s): 621249971 (4) Diabetes mellitus Current Visit: Yes Status: Acute Code(s): E11.9 - TYPE 2 DIABETES MELLITUS WITHOUT COMPLICATIONS SNOMED Code(s): 48312155 (5) Coronary artery disease Current Visit: Yes Status: Acute Code(s): I25.10 - ATHSCL HEART DISEASE OF [place] CORONARY ARTERY W/O ANG PCTRS SNOMED Code(s): 02769319 (6) Fever Current Visit: Yes Status: Acute Code(s): R50.9 - FEVER, UNSPECIFIED SNOMED Code(s): 862116575 (7) Weakness Current Visit: Yes Status: Acute Code(s): R53.1 - WEAKNESS SNOMED Code(s): 76512622 Plan: 1. Continue symptomatic and supportive care 2. Diet as tolerated 3. Protonix 40 mg daily GI prophylaxis 4. Anemia profile ordered and reviewed 5. Patient status post upper endoscopy, no further workup indicated at this time. 6. Rest of medical management per primary medical team Thank you for this consultation, patient is cleared from gastroenterology for winter pritchett. Dr. Bg Lyn I agree with the dictator's note, documented as a scribe by Nanda Mane.
[2024-06-12 17:36] LABS: Glucose,Whole Blood 130 mg/dL (70-110)
[2024-06-12 17:39] VITALS: BP 126/62; PULSE 60; RESP 17; TEMP 98.2
[2024-06-14 19:45] LABS: % Iron Saturation 10.37 (15.00-50.00)
--- NOTE | 2024-07-05 22:45 | P.DS ---
Providers Date of admission: 06/06/24 14:09 Attending physician: Cedric Briggs MD Consults: 06/06/24 12:53 Consult Physician Routine Consulting Provider: Carlos Enrique Meza Consult Reason/Comments: Sepsis Do you want consulting provider notified?: Yes 06/06/24 12:54 Consult Physician Routine Consulting Provider: Ashley Eubanks Consult Reason/Comments: CRF Do you want consulting provider notified?: Yes Primary care physician: Sancho Sorto MD Hospital Course: Final Diagnosis Fever of unknown origin Anemia with melenic stools concern for acute upper GI bleed Status post EGD on 06/11/2024 which showed several scattered angioiectasia status post cauterization. No active bleeding. Orthostatic hypotension Chronic kidney disease/ESRD maintained on hemodialysis Mechanical fall Intertrigo Diabetes mellitus type II Hx of coronary artery disease Hypertension Hyperlipidemia Discharge Disposition Patient is stable for discharge home. Has been cleared by all consultations. Patient has multiple follow ups including nephrology, GI, Infectious disease and PCP Dr. Sancho Sorto. Patient to repeat blood work in 2 to 3 days. Patient has been started on spironolactone. Will continue on oral ceftin for 5 more days. Hospital Course This is a pleasant 84-year-old male with past medical history of end-stage renal disease with recent started on hemodialysis, coronary artery disease, diabetes mellitus, hyperlipidemia, hypertension who was transferred from [facility] for concerns of sepsis. The patient had been having worsening of generalized weakness going on for approximately 2 to 3 days. The patient almost had been discharged from this facility approximately 5 days ago where he was diagnosed with renal failure. He had dialysis catheter placement and was starting dialysis treatments. The patient found to have fever at the other hospital and no definite source. He had workup including a urinalysis which was unremarkable. CBC showed a white blood cell count of 7000, hemoglobin 8.4, platelets 247. Patient's creatinine 2.7. Glucose 119. Other chemistries normal. Lactic acid negative. Patient has been having intermittent fevers and source has not been identified. Patient was also recently hospitalized here for kidney disease. He has a history of anemia. He has been on oral iron and now parental iron with his hemodialysis. He has been reporting black stool pains for the last week or so. He did have a positive stool occult blood. Patient admitted and has had multiple consultations including ID, nephrology, and GI. Patient underwent endoscopy for the concerns for GI bleed. Findings including scattered angioectasia in the duodenal bulb with no active bleeding s/p cautery using a gold probe. There is small hiatal hernia. Diet will be advanced as tolerated. Patient has been continued on hemodialysis. The fever has resolved on IV ceftriaxone and per ID has recommended a course of oral ceftin on discharge. There was no source of infection found. Patients blood culture negative and blood culture also taken from the permacath was negative. Patient has been awake alert oriented. Afebrile., Alert x 2 to 3 . He has been evaluated by PT he will be discharged home. Please see medication reconciliation for a list of current medications. Thank you for allowing us to participate in the care of this patient. The impression and plan of care has been dictated by Zuleima Toro, Nurse Practitioner as directed. Dr. Shoshana MD I have performed a history and physical examination and medical decision making of this patient, discussed the same with the dictator, and agree with the dictators assessment and plan as written, documented as a scribe. Based on total visit time, I have performed more than 50% of this visit. Patient Condition at Discharge: Good Plan - Discharge Summary Discharge Rx Participant: No New Discharge Prescriptions: New cefUROXime axetiL [Ceftin] 500 mg PO BID 5 Days #10 tab Nystatin 100,000 Unit/gm Powd [Mycostatin Powder] 1 applic TOPICAL BID #15 gm Spironolactone [Aldactone] 25 mg PO DAILY #30 tab Continue Triamcinolone 0.1% Cream [Kenalog 0.1% Cream] 1 applic TOPICAL BID PRN PRN Reason: Skin Irritation Doxazosin [Cardura] 4 mg PO BID Atorvastatin [Lipitor] 80 mg PO HS Hydrocortisone Cream [Hydrocortisone 2.5% Cream] 1 applic TOPICAL BID PRN PRN Reason: Skin Irritation Finasteride [Proscar] 5 mg PO DAILY Mv-Min/Folic/K1/Lycopen/Lutein [Centrum Silver Men Tablet] 1 tab PO DAILY Ferrous Sulfate [Iron (65 MG Elemental)] 325 mg PO DAILY Ascorbic Acid [Vitamin C] 500 mg PO DAILY hydrALAZINE HCL [Apresoline] 50 mg PO TID 30 Days #90 tab Torsemide [Demadex] 40 mg PO DAILY 30 Days #60 tablet Metoprolol Tartrate [Lopressor] 50 mg PO BID Clobetasol Propionate [Temovate 0.05% Cream] 1 applic TOPICAL BID PRN PRN Reason: Skin Irritation Nystatin 100,000Unit/gm Cream [Mycostatin Cream] 1 applic TOPICAL BID PRN PRN Reason: Skin Irritation Levothyroxine Sodium [Synthroid] 50 mcg PO DAILY Magnesium Oxide [Mag-Ox] 400 mg PO DAILY Aspirin EC [Ecotrin Low Dose] 81 mg PO DAILY Discharge Medication List Ascorbic Acid [Vitamin C] 500 mg PO DAILY 05/24/24 [History] Aspirin EC [Ecotrin Low Dose] 81 mg PO DAILY 05/24/24 [History] Atorvastatin [Lipitor] 80 mg PO HS 05/24/24 [History] Clobetasol Propionate [Temovate 0.05% Cream] 1 applic TOPICAL BID PRN 05/24/24 [History] Doxazosin [Cardura] 4 mg PO BID 05/24/24 [History] Ferrous Sulfate [Iron (65 MG Elemental)] 325 mg PO DAILY 05/24/24 [History] Finasteride [Proscar] 5 mg PO DAILY 05/24/24 [History] Hydrocortisone Cream [Hydrocortisone 2.5% Cream] 1 applic TOPICAL BID PRN 05/24/24 [History] Levothyroxine Sodium [Synthroid] 50 mcg PO DAILY 05/24/24 [History] Magnesium Oxide [Mag-Ox] 400 mg PO DAILY 05/24/24 [History] Metoprolol Tartrate [Lopressor] 50 mg PO BID 05/24/24 [History] Mv-Min/Folic/K1/Lycopen/Lutein [Centrum Silver Men Tablet] 1 tab PO DAILY 05/24/24 [History] Nystatin 100,000Unit/gm Cream [Mycostatin Cream] 1 applic TOPICAL BID PRN 05/24/24 [History] Triamcinolone 0.1% Cream [Kenalog 0.1% Cream] 1 applic TOPICAL BID PRN 05/24/24 [History] Torsemide [Demadex] 40 mg PO DAILY 30 Days #60 tablet 05/29/24 [Rx] hydrALAZINE HCL [Apresoline] 50 mg PO TID 30 Days #90 tab 05/29/24 [Rx] Nystatin 100,000 Unit/gm Powd [Mycostatin Powder] 1 applic TOPICAL BID #15 gm 06/12/24 [Rx] Spironolactone [Aldactone] 25 mg PO DAILY #30 tab 06/12/24 [Rx] cefUROXime axetiL [Ceftin] 500 mg PO BID 5 Days #10 tab 06/12/24 [Rx] Follow up Appointment(s)/Referral(s): Ashley Eubanks MD [STAFF PHYSICIAN] - 1 Week Aliya Lyn MD [STAFF PHYSICIAN] - 2 Weeks (Patient to call office to follow up and wants colonoscopy at [place] office) Sancho Sorto MD [Primary Care Provider] - 1 Week Carlos Enrique Meza MD [STAFF PHYSICIAN] - 1 Week Ambulatory/Diagnostic Orders: Basic Metabolic Panel [LAB.AMB] Time Frame: 3 Days, Location: None Selected Complete Blood Count w/diff [LAB.AMB] Location: None Selected Activity/Diet/Wound Care/Special Instructions: Follow up with Dr. Eubanks after discharge regarding staying on the aranesp. Discharge Disposition: HOME SELF-CARE
== END 2024-06-12 20:55 | disposition home or self-care (01) | DRG 377 ==
LOC: EC 03:59 → 6NMEDSUR 07:26 → OBSVTOIN 14:09
PROVIDERS: ADMIT Internal Medicine; ATTEND Internal Medicine
PROC: 5A1D70Z Performance of Urinary Filtration, Intermittent, Less than 6 Hours Per Day (ICD-10-PCS; principal; 2024-06-08)
PROC: 30233N1 Transfusion of Nonautologous Red Blood Cells into Peripheral Vein, Percutaneous Approach (ICD-10-PCS; 2024-06-08)
PROC: 0W3P8ZZ Control Bleeding in Gastrointestinal Tract, Via Natural or Artificial Opening Endoscopic (ICD-10-PCS; 2024-06-11)
DX: K31.811 Angiodysplasia of stomach and duodenum with bleeding (principal); N18.6 End stage renal disease; I12.0 Hypertensive chronic kidney disease with stage 5 chronic kidney disease or end stage renal disease; E87.1 Hypo-osmolality and hyponatremia; R50.9 Fever, unspecified; E11.22 Type 2 diabetes mellitus with diabetic chronic kidney disease; Z99.2 Dependence on renal dialysis; E78.5 Hyperlipidemia, unspecified; I95.1 Orthostatic hypotension; D63.1 Anemia in chronic kidney disease; B36.9 Superficial mycosis, unspecified; I25.10 Atherosclerotic heart disease of native coronary artery without angina pectoris; M89.8X9 Other specified disorders of bone, unspecified site; Y93.9 Activity, unspecified; W01.0XXA Fall on same level from slipping, tripping and stumbling without subsequent striking against object, initial encounter; L30.4 Erythema intertrigo; Z79.84 Long term (current) use of oral hypoglycemic drugs; Z79.82 Long term (current) use of aspirin; Z79.890 Hormone replacement therapy; Z79.899 Other long term (current) drug therapy; Z87.891 Personal history of nicotine dependence; M19.90 Unspecified osteoarthritis, unspecified site; N20.0 Calculus of kidney; K80.20 Calculus of gallbladder without cholecystitis without obstruction; K44.9 Diaphragmatic hernia without obstruction or gangrene
CPT/HCPCS: 36415; 43270; 71045; 74176; 80048; 80053; 81001; 82272; 82728; 83540; 83550; 83605; 84100; 85025; 85652; 86140; 86850; 86900; 86901; 86920; 87040; 87086; 87103; 87502; 87635; 90935; 94760; 99285